=== PATIENT | female | born 1970 | race Caucasian/White ===

== ENCOUNTER 2017-01-28 15:20 | Emergency (ER) | payer OTHER, SELFPAY ==
[2017-01-28 15:29] VITALS: BP 123/93; PULSE 86; O2SAT 97
[2017-01-28] MEDS ORDERED: Rocephin 1000 MG INJ IM ONE (15:49)
--- NOTE | 2017-01-28 15:54 | ERPHSYRPT ---
- History of Present Illness Time Seen by Provider: 01/28/17 15:49 Source: patient, [employer] Patient Subjective Stated Complaint: stating she been having mouth pain since sunday on right side top of her mouth and in her jaw has not contacted doctor or dentist Triage Nursing Assessment: pt has no swelling noticable to the right side of face, cannot see any abscesses inside mouth Physician History: stating she been having mouth pain since sunday on right side top of her mouth and in her jaw. pain on right side of jaw and ear. Timing/Duration: gradual onset Severity: moderate ENT Location: ear (R) Prearrival Treatment: no prearrival treatment Associated Symptoms: ear pain (R), jaw pain (right), tooth pain, No fever, No sore throat Allergies/Adverse Reactions: aspirin Allergy (Verified 05/28/16 16:59) Rash pt states allergic to baby aspirin/orange coating Home Medications: Escitalopram Oxalate [Lexapro] 10 mg PO DAILY 02/29/16 [History] Levothyroxine Sodium 75 Mcg [Synthroid 75 Mcg] 75 mcg PO DAILY 02/29/16 [ History] Ranitidine HCl [Zantac 75] 75 mg PO BID 02/29/16 [History] Hx Tetanus, Diphtheria Vaccination/Date Given: Yes Hx Influenza Vaccination/Date Given: No Hx Pneumococcal Vaccination/Date Given: No Immunizations Up to Date: Yes - Review of Systems Constitutional: No Symptoms Eyes: No Symptoms Ears, Nose, & Throat: Ear Pain (right), Mouth Pain, Mouth Swelling, Loose Teeth , No Throat Swelling Respiratory: No Symptoms Cardiac: No Symptoms Abdominal/Gastrointestinal: No Symptoms - Past Medical History Pertinent Past Medical History: Yes Neurological History: Migraines ENT History: No Pertinent History Cardiac History: No Pertinent History Respiratory History: Asthma Endocrine Medical History: Hypothyroidism Musculoskeletal History: No Pertinent History GI Medical History: GERD, Gallbladder Disease History: No Pertinent History Psycho-Social History: Depression Female Reproductive Disorders: Abnormal Uterine Bleeding - Past Surgical History Past Surgical History: Yes Neuro Surgical History: No Pertinent History Cardiac: No Pertinent History Respiratory: No Pertinent History Gastrointestinal: Cholecystectomy Genitourinary: No Pertinent History Musculoskeletal: No Pertinent History Female Surgical History: Section, Hysterectomy, Tubal Ligation Other Surgical History: tonsilectomy - Social History Smoking Status: Never smoker Exposure to second hand smoke: Yes Drug Use: none Patient Lives Alone: No - Nursing Vital Signs Nursing Vital Signs: Initial Vital Signs Temperature 97.9 F Temperature Source Oral Pulse Rate 86 Respiratory Rate 20 Blood Pressure [Right Arm] 123/93 Pain Intensity 7 - Physical Exam General Appearance: no apparent distress Eye Exam: bilateral eye: normal inspection Ear Exam: bilateral ear: auricle normal, canal normal, TM normal Nasal Exam: normal inspection Throat Exam: dental tenderness, moist mucus membranes Neck Exam: normal inspection Cardiovascular/Respiratory Exam: chest non-tender SpO2: 97 Oxygen Delivery: Room Air - Course Nursing assessment & vital signs reviewed: Yes Ordered Tests: Medication Summary Generic Name Dose Route Start Last Admin Trade Name Freq PRN Reason Stop Dose Admin Ceftriaxone Sodium 1,000 mg 01/28/17 15:49 Rocephin 1000 Mg Inj IM 01/28/17 15:50 STAT ONE - Progress Progress: unchanged Counseled pt/family regarding: diagnosis, need for follow-up - Departure Time of Disposition: 15:53 Departure Disposition: Home Clinical Impression: Dental abscess Condition: Stable Critical Care Time: No Referrals: KRYSTIN SUTHERLAND [Primary Care Provider] - Instructions: Tooth Decay, Dental Pain Additional Instructions: Please follow the instructions given to you. Please take your medication as prescribed if given. If symptoms recur or get worse, come back to the emergency room if you cannot reach your primary care physician, or call your primary care physician for an appointment. Again if your symptoms get worse, come back to the emergency room. Thanks for visiting emergency room, and let us take care of you. Prescriptions: Cephalexin Mh 500 mg [Keflex 500 mg] 500 mg PO Q6H #40 capsule
[2017-01-28] MEDS ORDERED: XYLOCAINE 1% HCL 20 ML MDV ONE (15:56)
[2017-01-28] MEDS ORDERED: Rocephin 1000 MG INJ ONE (15:56)
== END 2017-01-28 16:21 | disposition home or self-care (01) ==
LOC: ED 15:20
DX: K04.7 Periapical abscess without sinus (principal); E03.9 Hypothyroidism, unspecified
CPT/HCPCS: 96372; 99283; J0696

== ENCOUNTER 2019-12-23 21:47 | Emergency (ER) | payer OTHER ==
--- NOTE | 2019-12-23 22:03 | ERPHSYRPT ---
- History of Present Illness Time Seen by Provider: 12/23/19 21:50 Source: patient Physician History: Patient is here with cough, shortness of breath, wheezing. Patient does not smoke. However, she has exposed to lots of secondhand smoke in her career and at home. Patient complains of 3 weeks of cough, wheezing, shortness of breath. Originally saw her PCP. Was given steroids and a Z-Ciro. She continues to have symptoms at this time. Location: chest Quality: cough, SOB Radiation: none Severity: moderate Duration: 3 weeks Timing: gradual Modifying factors/associated signs and symptoms: none tried Allergies/Adverse Reactions: aspirin Allergy (Intermediate, Verified 12/23/19 22:02) Rash pt states allergic to baby aspirin/orange coating Home Medications: Escitalopram Oxalate [Lexapro] 10 mg PO DAILY 02/29/16 [History] Levothyroxine Sodium 75 Mcg [Synthroid 75 Mcg] 75 mcg PO DAILY 02/29/16 [ History] Ranitidine HCl [Zantac 75] 75 mg PO BID 02/29/16 [History] Hx Tetanus, Diphtheria Vaccination/Date Given: Yes Hx Influenza Vaccination/Date Given: No Hx Pneumococcal Vaccination/Date Given: No - Review of Systems Constitutional: No Fever, No Chills Eyes: No Symptoms Ears, Nose, & Throat: No Symptoms Respiratory: Cough, Dyspnea on Exertion (SALAS), Wheezing, No Dyspnea Cardiac: No Chest Pain, No Edema, No Syncope Abdominal/Gastrointestinal: No Abdominal Pain, No Nausea, No Vomiting, No Diarrhea Genitourinary Symptoms: No Dysuria Musculoskeletal: No Back Pain, No Neck Pain Skin: No Rash Neurological: No Dizziness, No Focal Weakness, No Sensory Changes Psychological: No Symptoms Endocrine: No Symptoms All Other Systems: Reviewed and Negative - Past Medical History Pertinent Past Medical History: Yes Neurological History: Migraines ENT History: No Pertinent History Cardiac History: Hypertension Respiratory History: Asthma Endocrine Medical History: Hypothyroidism Musculoskeletal History: Arthritis GI Medical History: GERD, Gallbladder Disease History: No Pertinent History Psycho-Social History: Depression Female Reproductive Disorders: Abnormal Uterine Bleeding Other Medical History: zantac, welbutrin, lthyroxine,allergic to baby aspirin and cholesteral meds, allergic to cinnamon. - Past Surgical History Past Surgical History: Yes Neuro Surgical History: No Pertinent History Cardiac: No Pertinent History Respiratory: No Pertinent History Gastrointestinal: Cholecystectomy Genitourinary: No Pertinent History Musculoskeletal: No Pertinent History Female Surgical History: Section, Hysterectomy, Tubal Ligation Other Surgical History: tonsilectomy - Social History Smoking Status: Never smoker Exposure to second hand smoke: Yes Drug Use: none Patient Lives Alone: No - Female History Hx Now: No - Nursing Vital Signs Nursing Vital Signs: Initial Vital Signs Temperature 97.3 F 12/23/19 21:52 Pulse Rate 99 H 12/23/19 21:52 Respiratory Rate 20 12/23/19 21:52 Blood Pressure 158/100 12/23/19 21:52 O2 Sat by Pulse Oximetry 96 12/23/19 21:52 Pain Scale Pain Intensity 8 - Physical Exam General Appearance: no apparent distress, alert Eye Exam: PERRL/EOMI Neck Exam: normal inspection, supple Respiratory Exam: wheezing Cardiovascular/Chest Exam: normal heart sounds, regular rate/rhythm Abdominal/Gastrointestinal Exam: soft, No tenderness, No distention, No mass Extremity Exam: non-tender, normal range of motion, normal inspection, no calf tenderness, no pedal edema Neurologic Exam: alert, oriented x 3, cooperative, stenciling machine tender II-XII nml as tested, sensation nml, No motor deficits Skin Exam: normal color, warm, No dry SpO2 Interpretation: normal Ordered Tests: Active Orders 24 hr Category Date Time Status Oral Hygienist STAT Care 12/23/19 21:58 Active EKG-ER Only STAT Care 12/23/19 21:57 Active IV Insertion STAT Care 12/23/19 21:57 Active CHEST 2 VIEWS (PA AND LAT) Stat Exams 12/23/19 21:58 Ordered CBC W DIFF Stat Lab 12/23/19 22:13 Completed CMP Stat Lab 12/23/19 22:13 Completed NT PRO BNP Stat Lab 12/23/19 22:13 Completed TROPONIN Q3H Lab 12/23/19 22:13 Completed TROPONIN Q3H Lab 12/24/19 01:00 Ordered TROPONIN Q3H Lab 12/24/19 04:00 Ordered TROPONIN Q3H Lab 12/24/19 07:00 Ordered TROPONIN Q3H Lab 12/24/19 10:00 Ordered VENOUS BLOOD GAS Stat Lab 12/23/19 21:57 Ordered Peak Expiratory Flow Rate ONCE RT 12/23/19 22:29 Active Respiratory Therapy Assessment DAILY RT 12/23/19 22:29 Active Medication Summary Discontinued Medications Generic Name Dose Route Start Last Admin Trade Name Silva PRN Reason Stop Dose Admin Albuterol/Ipratropium 3 ml 12/23/19 21:57 12/23/19 22:30 Duoneb 0.5-3 Mg/3 Ml Neb IH 12/23/19 21:58 3 ml STAT ONE Administration Albuterol/Ipratropium Confirm 12/23/19 22:26 Duoneb 0.5-3 Mg/3 Ml Neb Administered 12/23/19 22:27 Dose 3 ml IH .STK-MED ONE Albuterol/Ipratropium Confirm 12/23/19 22:44 Duoneb 0.5-3 Mg/3 Ml Neb Administered 12/23/19 22:45 Dose 3 ml IH .STK-MED ONE Albuterol/Ipratropium 3 ml 12/23/19 22:45 12/23/19 22:48 Duoneb 0.5-3 Mg/3 Ml Neb IH 12/23/19 22:46 3 ml STAT ONE Administration Sodium Chloride 1,000 mls @ 999 mls/hr 12/23/19 21:57 12/23/19 22:16 Sodium Chloride 0.9% 1000 Ml IV 12/23/19 22:57 999 mls/hr .Q1H1M STA Administration Sodium Chloride Confirm 12/23/19 22:13 Sodium Chloride 0.9% 1000 Ml Administered 12/23/19 22:14 Dose 1,000 mls @ ud .ROUTE .STK-MED ONE Methylprednisolone Sodium Succinate 125 mg 12/23/19 21:57 12/23/19 22:16 Solu-Medrol 125 Mg IV 12/23/19 21:58 125 mg STAT ONE Administration Methylprednisolone Sodium Succinate Confirm 12/23/19 22:13 Solu-Medrol 125 Mg Administered 12/23/19 22:14 Dose 125 mg .ROUTE .STK-MED ONE Ondansetron HCl 4 mg 12/23/19 21:57 12/23/19 22:16 Zofran 4 Mg/2 Ml Vial IV 12/23/19 21:58 4 mg STAT ONE Administration Ondansetron HCl Confirm 12/23/19 22:13 Zofran 4 Mg/2 Ml Vial Administered 12/23/19 22:14 Dose 4 mg .ROUTE .STK-MED ONE Lab/Rad Data: Laboratory Result Diagrams 12/23/19 22:13 12/23/19 22:13 Laboratory Results 12/23/19 12/23/19 12/23/19 Range/Units 22:13 22:13 22:13 WBC (4.0-10.5) K/mm3 RBC (4.1-5.4) M/mm3 Hgb (12.0-16.0) gm/dl Hct (35-47) % MCV (78-100) fl MCH (26-32) pg MCHC (32-36) g/dl RDW (11.5-14.0) % Plt Count (150-450) K/mm3 MPV (7.5-11.0) fl Gran % (36.0-66.0) % Eos # (Auto) (0-0.5) Absolute Lymphs (auto) (1.0-4.6) Absolute Monos (auto) (0.0-1.3) Lymphocytes % (24.0-44.0) % Monocytes % (0.0-12.0) % Eosinophils % (0.00-5.0) % Basophils % (0.0-0.4) % Absolute Granulocytes (1.4-6.9) Basophils # (0-0.4) Sodium 143 (137-145) mmol/L Potassium 3.6 (3.5-5.1) mmol/L Chloride 111 H (98-107) mmol/L Carbon Dioxide 24 (22-30) mmol/L Anion Gap 11.5 (5-15) MEQ/L BUN 15 (7-17) mg/dL Creatinine 0.89 (0.52-1.04) mg/dL Estimated GFR > 60.0 ML/MIN Glucose 114 H (74-106) mg/dL Calcium 9.3 (8.4-10.2) mg/dL Total Bilirubin 0.40 (0.2-1.3) mg/dL AST 24 (14-36) U/L ALT 23 (0-35) U/L Alkaline Phosphatase 92 (38-126) U/L Troponin I < 0.012 (0.000-0.034) ng/mL NT-Pro-B Natriuret Pep 66.5 (0-450) pg/mL Serum Total Protein 7.2 (6.3-8.2) g/dL Albumin 4.1 (3.5-5.0) g/dL Influenza Type A Ag NEGATIVE (NEGATIVE) Influenza Type B Ag NEGATIVE (NEGATIVE) RSV (PCR) NEGATIVE (Negative) 12/23/19 Range/Units 22:13 WBC 11.8 H (4.0-10.5) K/mm3 RBC 4.62 (4.1-5.4) M/mm3 Hgb 14.0 (12.0-16.0) gm/dl Hct 42.2 (35-47) % MCV 91.3 (78-100) fl MCH 30.3 (26-32) pg MCHC 33.2 (32-36) g/dl RDW 13.9 (11.5-14.0) % Plt Count 264 (150-450) K/mm3 MPV 9.9 (7.5-11.0) fl Gran % 64.5 (36.0-66.0) % Eos # (Auto) 0.78 H (0-0.5) Absolute Lymphs (auto) 2.47 (1.0-4.6) Absolute Monos (auto) 0.86 (0.0-1.3) Lymphocytes % 20.9 L (24.0-44.0) % Monocytes % 7.3 (0.0-12.0) % Eosinophils % 6.6 H (0.00-5.0) % Basophils % 0.7 (0.0-0.4) % Absolute Granulocytes 7.60 H (1.4-6.9) Basophils # 0.08 (0-0.4) Sodium (137-145) mmol/L Potassium (3.5-5.1) mmol/L Chloride (98-107) mmol/L Carbon Dioxide (22-30) mmol/L Anion Gap (5-15) MEQ/L BUN (7-17) mg/dL Creatinine (0.52-1.04) mg/dL Estimated GFR ML/MIN Glucose (74-106) mg/dL Calcium (8.4-10.2) mg/dL Total Bilirubin (0.2-1.3) mg/dL AST (14-36) U/L ALT (0-35) U/L Alkaline Phosphatase (38-126) U/L Troponin I (0.000-0.034) ng/mL NT-Pro-B Natriuret Pep (0-450) pg/mL Serum Total Protein (6.3-8.2) g/dL Albumin (3.5-5.0) g/dL Influenza Type A Ag (NEGATIVE) Influenza Type B Ag (NEGATIVE) RSV (PCR) (Negative) - Progress Progress: improved Air Movement: good Progress Note: 12/23/19 22:02 - We'll obtain basic labs, fluids, EKG, troponin, chest x-ray - I feel comfortable with one time negative troponin given symptoms have improved and started greater then 6 hours ago. - breathing treatment, fluids, steroids - EKG shows no ST changes - my read. See full read below. - O2 saturations consistently greater than 95%. - CXR shows no pneumonia, pneumothorax - my read - no other obvious lab abnormalities 12/23/19 23:16 Patient feeling improved overall. Given total of 3 breathing treatments. Most likely a COPD exacerbation. Will discharge patient home at this point in time. We will have patient follow-up with her PCP, keep her pulmonology appointment. Should anything change, patient should return here immediately for reexam. Patient states understanding. Plan of care was discussed with patient and all questions answered. The patient is agreeable to be discharged home and both verbal and printed discharge instructions were provided.The patient agreed to seek outpatient follow up as discussed. The patient was given strict instructions to return to the emergency department for worsening symptoms or any other emergent concerns. The patient verbalized understanding. Counseled pt/family regarding: lab results, diagnosis, need for follow-up - Departure Departure Disposition: Home Clinical Impression: COPD exacerbation Condition: Stable Critical Care Time: No Referrals: GISELLE ALMARAZ MD [Primary Care Provider] - Instructions: Chronic Obstructive Pulmonary Disease Prescriptions: Prednisone 10 mg [Deltasone 10 mg] 40 mg PO DAILY 5 Days #30 tablet
[2019-12-23] MEDS ORDERED: Sodium Chloride 0.9% 1000 ML 1,000 ML ONE (22:13)
[2019-12-23] MEDS ORDERED: Zofran 4 MG/2 ML VIAL ONE (22:13)
[2019-12-23] MEDS ORDERED: solu-MEDROL 125 MG ONE (22:13)
[2019-12-23 22:16] LABS: BASOPHIL % 0.7 % (0.0-0.4); Basophil (Absolute #) 0.08 (0-0.4); Eosinophil % 6.6 % (0.00-5.0); Eosinophil (Absolute #) 0.78 (0-0.5); Hematocrit 42.2 % (35-47); Lymphocyte (Absolute #) 2.47 (1.0-4.6); Lymphocytes % 20.9 % (24.0-44.0); Mean Cell Volume 91.3 fl (78-100); Mean Corpuscular Hemoglobin 30.3 pg (26-32); Mean Corpuscular Hgb Concent. 33.2 g/dl (32-36); Mean Platelet Volume 9.9 fl (7.5-11.0); Monocyte (Absolute #) 0.86 (0.0-1.3); Monocytes % 7.3 % (0.0-12.0); Neutrophil % 64.5 % (36.0-66.0); Platelet Count 264 K/mm3 (150-450); Red Blood Count 4.62 M/mm3 (4.1-5.4); Red Cell Distribution Width 13.9 % (11.5-14.0); White Blood Count 11.8 K/mm3 (4.0-10.5)
[2019-12-23] MEDS: Zofran 4 MG/2 ML VIAL IV ONE (22:16)
[2019-12-23] MEDS: Sodium Chloride 0.9% 1000 ML 1,000 ML IV STA (22:16)
[2019-12-23] MEDS: solu-MEDROL 125 MG IV ONE (22:16)
[2019-12-23] MEDS ORDERED: DUONEB 0.5-3 MG/3 ml Neb IH ONE ×2 (22:26→22:44)
[2019-12-23] MEDS: DUONEB 0.5-3 MG/3 ml Neb IH ONE ×2 (22:30→22:48)
[2019-12-23 22:36] LABS: ALBUMIN 4.1 g/dL (3.5-5.0); ALKALINE PHOSPHATASE 92 U/L (38-126); ANION GAP 11.5 MEQ/L (5-15); BLOOD UREA NITROGEN 15 mg/dL (7-17); CHLORIDE 111 mmol/L (98-107); Calcium 9.3 mg/dL (8.4-10.2); Carbon Dioxide 24 mmol/L (22-30); Creatinine 1 0.89 mg/dL (0.52-1.04); Glucose 114 mg/dL (74-106); NT PRO BNP 66.5 pg/mL (0-450); Potassium 3.6 mmol/L (3.5-5.1); SGOT/AST 24 U/L (14-36); SGPT/ALT 23 U/L (0-35); SODIUM 143 mmol/L (137-145); Total Protein 7.2 g/dL (6.3-8.2)
[2019-12-23 22:49] LABS: INFLUENZA A NEGATIVE (NEGATIVE); INFLUENZA B NEGATIVE (NEGATIVE); RESPIRATORY SYNCTIAL VIRUS NEGATIVE (Negative)
[2019-12-23 23:37] VITALS: BP 128/72
[2019-12-23 23:54] VITALS: PULSE 89; O2SAT 98
--- NOTE | 2019-12-24 08:46 | XRAY ---
Indication: Cough. Comparison: None PA/lateral chest demonstrates normal heart and lungs with a few incidental right lung calcified granulomas. Bony thorax intact.
== END 2019-12-23 23:54 | disposition home or self-care (01) ==
LOC: ED 21:47
DX: J44.1 Chronic obstructive pulmonary disease with (acute) exacerbation (principal)
CPT/HCPCS: 36000; 36415; 71046; 80053; 83880; 84484; 85025; 87631; 93005; 93041; 94150; 94640; 96360; 96374; 96375; 99284; J2405; J2930; A9270-GY

== ENCOUNTER 2021-05-02 09:37 | Emergency (ER) | payer OTHER ==
[2021-05-02] MEDS ORDERED: Sodium Chloride 0.9% 1000 ML 1,000 ML IV STA (10:05)
[2021-05-02] MEDS ORDERED: Zofran 4 MG/2 ML VIAL IV ONE (10:05)
[2021-05-02] MEDS ORDERED: MORPHINE SULFATE 2 MG INJ IV ONE (10:05)
[2021-05-02] MEDS ORDERED: Zofran 4 MG/2 ML VIAL ONE (10:49)
--- NOTE | 2021-05-02 10:49 | ERPHSYRPT ---
- History of Present Illness Time Seen by Provider: 05/02/21 09:55 Historian: patient Exam Limitations: no limitations Patient Subjective Stated Complaint: pt reports vomiting since sunday with no relief, reports abdominal pain only with eating/drinking Triage Nursing Assessment: pt is aox3, retching upon arrival, pupils perrl, afebrile, resps easy and non labored, radial pulses strong and equal, cap refill < 3 seconds, abd soft, tender diffusely, bowel sounds present normoactive x 4, pt skin pale warm moist. Physician History: Patient is a 50-year-old female presents to our ED with complaints of vomiting since Sunday. Patient states she is unable to tolerate solid foods and liquids. Patient has been vomiting intermittently. Patient describes an ache that is primarily periumbilical. No diarrhea. No trauma no fever. Patient denies a history of the same. Symptoms are moderate in intensity. Pain is mostly postprandial. No associated chest pain. No numbness tingling or weakness. Patient voices no other complaints or concerns at this time. Timing/Duration: day(s) (3 days) Activities at Onset: other (18) Quality: aching Abdominal Pain Onset Location: periumbilical Pain Radiation: no radiation Severity of Pain-Max: moderate Severity of Pain-Current: mild Modifying Factors: Improves With: other (Eating) Associated Symptoms: No chest pain, No diarrhea, No fever/chills, No headache, No neck pain, No shortness of breath, No syncope Previous symptoms: no prior history Allergies/Adverse Reactions: aspirin Allergy (Intermediate, Verified 05/02/21 09:59) Rash pt states allergic to baby aspirin/orange coating Home Medications: Escitalopram Oxalate [Lexapro] 10 mg PO DAILY 02/29/16 [History] Levothyroxine Sodium 75 Mcg [Synthroid 75 Mcg] 75 mcg PO DAILY 02/29/16 [History] raNITIdine HCL [Zantac 75] 75 mg PO BID 02/29/16 [History] Hx Tetanus, Diphtheria Vaccination/Date Given: Yes Hx Influenza Vaccination/Date Given: Yes Hx Pneumococcal Vaccination/Date Given: No Immunizations Up to Date: Yes Travel Risk - International Travel Have you traveled outside of the country in past 3 weeks: No - Coronavirus Screening Are you exhibiting any of the following symptoms?: No Close contact with a COVID-19 positive Pt in past 14-21 Days: No - Vaccine Status Have you recieved a Covid-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: Yes 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[employer] - Vaccination Dates Date of 2cond Vaccination (if applicable): 04/13/21 - Review of Systems Constitutional: No Symptoms, No Fever, No Chills Eyes: No Symptoms Ears, Nose, & Throat: No Symptoms Respiratory: No Symptoms, No Cough, No Dyspnea Cardiac: No Symptoms, No Chest Pain, No Edema, No Syncope Abdominal/Gastrointestinal: No Symptoms, No Abdominal Pain, No Nausea, No Vomiting, No Diarrhea Genitourinary Symptoms: No Symptoms, No Dysuria Musculoskeletal: No Symptoms, No Back Pain, No Neck Pain Skin: No Symptoms, No Rash Neurological: No Symptoms, No Dizziness, No Focal Weakness, No Sensory Changes Psychological: No Symptoms Endocrine: No Symptoms Hematologic/Lymphatic: No Symptoms Immunological/Allergic: No Symptoms All Other Systems: Reviewed and Negative - Past Medical History Pertinent Past Medical History: Yes Neurological History: Migraines ENT History: No Pertinent History Cardiac History: Hypertension Respiratory History: Asthma Endocrine Medical History: Hypothyroidism Musculoskeletal History: Arthritis GI Medical History: GERD, Gallbladder Disease History: No Pertinent History Psycho-Social History: Depression Female Reproductive Disorders: Abnormal Uterine Bleeding Other Medical History: zantac, welbutrin, lthyroxine,allergic to baby aspirin and cholesteral meds, allergic to cinnamon. - Past Surgical History Past Surgical History: Yes Neuro Surgical History: No Pertinent History Cardiac: No Pertinent History Respiratory: No Pertinent History Gastrointestinal: Cholecystectomy Genitourinary: No Pertinent History Musculoskeletal: No Pertinent History Female Surgical History: Section, Hysterectomy, Tubal Ligation Other Surgical History: tonsilectomy - Social History Smoking Status: Never smoker Exposure to second hand smoke: Yes Drug Use: none Patient Lives Alone: No - Female History Hx Last Menstrual Period: hyst Hx Now: No - Nursing Vital Signs Nursing Vital Signs: Initial Vital Signs Pulse Rate 83 05/02/21 09:50 Respiratory Rate 20 05/02/21 09:50 Blood Pressure 170/84 05/02/21 09:50 O2 Sat by Pulse Oximetry 97 05/02/21 09:50 Pain Scale Pain Intensity 6 - Physical Exam General Appearance: no apparent distress, alert Eye Exam: PERRL/EOMI, eyes nml inspection Ears, Nose, Throat Exam: normal ENT inspection, pharynx normal, moist mucous membranes Neck Exam: normal inspection, non-tender, supple, full range of motion Respiratory Exam: normal breath sounds, lungs clear, No respiratory distress Cardiovascular Exam: regular rate/rhythm, normal heart sounds Gastrointestinal/Abdomen Exam: soft, No tenderness, No mass Back Exam: normal inspection, normal range of motion, No CVA tenderness, No v ertebral tenderness Extremity Exam: normal inspection, normal range of motion, pelvis stable Neurologic Exam: alert, oriented x 3, cooperative, normal mood/affect, nml cerebellar function, sensation nml, No motor deficits Skin Exam: normal color, warm, dry SpO2 Interpretation: normal SpO2: 97 O2 Delivery: Room Air Ordered Tests: Active Orders 24 hr Category Date Time Status IV Insertion STAT Care 05/02/21 10:05 Active ABDOMEN AND PELVIS W CONTRAST [CT] Routine Exams 05/02/21 11:54 Completed CBC W DIFF Stat Lab 05/02/21 11:25 Completed CMP Stat Lab 05/02/21 11:25 Completed LIPASE Stat Lab 05/02/21 11:25 Completed TROPONIN Q3H Lab 05/02/21 11:25 Completed TROPONIN Q3H Lab 05/02/21 13:15 Ordered TROPONIN Q3H Lab 05/02/21 16:15 Ordered TROPONIN Q3H Lab 05/02/21 19:15 Ordered TROPONIN Q3H Lab 05/02/21 22:15 Ordered UA W/RFX UR CULTURE Stat Lab 05/02/21 10:06 Ordered Medication Summary Discontinued Medications Generic Name Dose Route Start Last Admin Trade Name Freq PRN Reason Stop Dose Admin Sodium Chloride 1,000 mls @ 999 mls/hr 05/02/21 10:05 05/02/21 12:28 Sodium Chloride 0.9% 1000 Ml IV 05/02/21 11:05 Infused .Q1H1M STA Infusion Sodium Chloride Confirm 05/02/21 10:50 Sodium Chloride 0.9% 1000 Ml Administered 05/02/21 10:51 Dose 1,000 mls @ ud .ROUTE .STK-MED ONE Morphine Sulfate 2 mg 05/02/21 10:05 05/02/21 10:53 Morphine Sulfate 2 Mg Inj IV 05/02/21 10:06 2 mg STAT ONE Administration Morphine Sulfate Confirm 05/02/21 10:50 Morphine Sulfate 2 Mg Inj Administered 05/02/21 10:51 Dose 2 mg .ROUTE .STK-MED ONE Ondansetron HCl 4 mg 05/02/21 10:05 05/02/21 10:52 Zofran 4 Mg/2 Ml Vial IV 05/02/21 10:06 4 mg STAT ONE Administration Ondansetron HCl Confirm 05/02/21 10:49 Zofran 4 Mg/2 Ml Vial Administered 05/02/21 10:50 Dose 4 mg .ROUTE .STK-MED ONE Lab/Rad Data: Laboratory Result Diagrams 05/02/21 11:25 05/02/21 11:25 Laboratory Results 05/02/21 05/02/21 05/02/21 Range/Units 11:25 11:25 11:25 WBC 7.2 (4.0-10.5) K/mm3 RBC 5.12 (4.1-5.4) M/mm3 Hgb 15.2 (12.0-16.0) gm/dl Hct 46.3 (35-47) % MCV 90.4 (78-100) fl MCH 29.7 (26-32) pg MCHC 32.8 (32-36) g/dl RDW 13.7 (11.5-14.0) % Plt Count 230 (150-450) K/mm3 MPV 9.3 (7.5-11.0) fl Gran % 71.6 H (36.0-66.0) % Eos # (Auto) 0.11 (0-0.5) Absolute Lymphs (auto) 1.17 (1.0-4.6) Absolute Monos (auto) 0.73 (0.0-1.3) Lymphocytes % 16.3 L (24.0-44.0) % Monocytes % 10.2 (0.0-12.0) % Eosinophils % 1.5 (0.00-5.0) % Basophils % 0.4 (0.0-0.4) % Absolute Granulocytes 5.12 (1.4-6.9) Basophils # 0.03 (0-0.4) Sodium 142 (137-145) mmol/L Potassium 4.1 (3.5-5.1) mmol/L Chloride 107 (98-107) mmol/L Carbon Dioxide 26 (22-30) mmol/L Anion Gap 13.9 (5-15) MEQ/L BUN 12 (7-17) mg/dL Creatinine 1.16 H (0.52-1.04) mg/dL Estimated GFR 53.0 ML/MIN Glucose 109 H (74-106) mg/dL Calcium 9.5 (8.4-10.2) mg/dL Total Bilirubin 0.50 (0.2-1.3) mg/dL AST 35 (14-36) U/L ALT 44 H (0-35) U/L Alkaline Phosphatase 97 (38-126) U/L Troponin I < 0.012 (0.000-0.034) ng/mL Serum Total Protein 7.5 (6.3-8.2) g/dL Albumin 4.5 (3.5-5.0) g/dL Lipase 58 (23-300) U/L - Progress Progress: improved Progress Note: Since. She feels well. Nausea vomiting resolved. Patient tolerating p.o. well. CT abdomen pelvis reveals no acute intra-abdominal pathology. Laboratory work-up essentially nonremarkable as well. Significant other bedside. Plan of care discussed with patient. She agrees to follow-up with her primary care doctor within 48 hours for reevaluation. Patient advised to take Zofran only if she absolutely needs it. If she takes the Zofran she should hold the Lexapro as they prolonged QT in combinations. . 05/02/21 13:45 Counseled pt/family regarding: lab results, diagnosis, need for follow-up, rad results - Departure Departure Disposition: Home Clinical Impression: Lung granuloma, Hepatic steatosis, Diverticulosis, Nausea & vomiting Condition: Stable Critical Care Time: No Referrals: GISELLE ALMARAZ MD [Primary Care Provider] - Additional Instructions: Discharge/Care Plan SHAUN OSCAR was seen on 05/02/21 in the Emergency Room. The patient was counseled regarding Diagnosis,Lab results, Imaging studies, need for follow up and when to return to the Emergency Room. Prescriptions given: Discharge Note I have spoken with the patient and/or caregivers. I have explained the patient's condition, diagnosis and treatment plan based on the information available to me at this time. I have answered the patient's and/or caregiver's questions and addressed any concerns. The patient and/or caregivers have as good understanding of the patient's diagnosis, condition and treatment plan as can be expected at this point. The vital signs have been stable. The patient's condition is stable and appropriate for discharge from the emergency department. The patient will pursue further outpatient evaluation with the primary care physician or other designated or consulting physician as outlined in the discharge instructions. The patient and/or caregivers are agreeable to this plan of care and follow-up instructions have been explained in detail. The patient and/or caregivers have received these instruction. The patient/and or caregivers are aware that any significant change in condition or worsening of symptoms should prompt an immediate return to this or the closest emergency department or call 911. Prescriptions: Ondansetron ODT 4 MG [Zofran Odt 4 mg] 4 mg PO Q6H PRN PRN 2 Days #8 tab.rapdis PRN Reason: Nausea
[2021-05-02] MEDS ORDERED: Sodium Chloride 0.9% 1000 ML 1,000 ML ONE (10:50)
[2021-05-02] MEDS ORDERED: MORPHINE SULFATE 2 MG INJ ONE (10:50)
[2021-05-02 11:33] LABS: Absolute Neutrophil Ct (ANC) 5.12 (1.4-6.9); BASOPHIL % 0.4 % (0.0-0.4); Basophil (Absolute #) 0.03 (0-0.4); Eosinophil % 1.5 % (0.00-5.0); Eosinophil (Absolute #) 0.11 (0-0.5); Hematocrit 46.3 % (35-47); Hemoglobin 15.2 gm/dl (12.0-16.0); Lymphocyte (Absolute #) 1.17 (1.0-4.6); Lymphocytes % 16.3 % (24.0-44.0); Mean Cell Volume 90.4 fl (78-100); Mean Corpuscular Hemoglobin 29.7 pg (26-32); Mean Corpuscular Hgb Concent. 32.8 g/dl (32-36); Mean Platelet Volume 9.3 fl (7.5-11.0); Monocyte (Absolute #) 0.73 (0.0-1.3); Monocytes % 10.2 % (0.0-12.0); Neutrophil % 71.6 % (36.0-66.0); Platelet Count 230 K/mm3 (150-450); Red Blood Count 5.12 M/mm3 (4.1-5.4); Red Cell Distribution Width 13.7 % (11.5-14.0); White Blood Count 7.2 K/mm3 (4.0-10.5)
[2021-05-02 11:43] LABS: ALBUMIN 4.5 g/dL (3.5-5.0); ANION GAP 13.9 MEQ/L (5-15); BILIRUBIN,TOTAL 0.5 mg/dL (0.2-1.3); Calcium 9.5 mg/dL (8.4-10.2); Creatinine 1 1.16 mg/dL (0.52-1.04); Potassium 4.1 mmol/L (3.5-5.1); Total Protein 7.5 g/dL (6.3-8.2)
--- NOTE | 2021-05-02 13:28 | XRAY ---
Exam: CT of the abdomen and pelvis with IV contrast from 05/02/2021. CTDI: 21.43 mGy Comparison: CT of the abdomen and pelvis without IV contrast from 08/01/2016. Indication: 50-year-old female with abdominal pain. The patient gives a history of prior cholecystectomy, hysterectomy, and 2 prior sections. Technique: Post-IV contrast axial images were obtained through the abdomen and pelvis during automated injection of 80 cc of nonionic Isovue 370 IV contrast material. Findings: A prominent calcified granuloma is seen within the right middle lobe representing no change. The remainder of the visualized lung bases appears clear. There is some probable herniated intraperitoneal fat along the left margin of the distal thoracic esophagus. In retrospect, this is unchanged. Occasional motion artifact is seen. The liver appears of normal size and reveals no mass or biliary duct distention. I believe there is mild hepatic steatosis. Surgical clips consistent with prior cholecystectomy are seen within the right upper quadrant. The spleen appears within normal size and reveals no mass. Scattered calcified granulomas are seen within the spleen representing no change. The pancreas appears unremarkable without mass or inflammatory changes. The adrenal glands appear grossly unremarkable. The kidneys appear of normal size and shape. Both kidneys function on delayed images revealing no mass or hydronephrosis. No definite renal calculi are seen. A small amount of bilateral renal pelvic fat is seen, right greater than left. The ureters are not dilated and reveal no definite ureterolith. The abdominal aorta reveals no evidence of aneurysm or abnormal retroperitoneal lymphadenopathy. No ventral hernia or free intraperitoneal air is seen. Minimal protrusion of intraperitoneal fat into the subcutaneous fat is seen at the level of the umbilicus on midline sagittal image #116. A retrocecal appendix is seen which appears normal. There is no evidence of appendicitis. The colon is nonobstructed. Mild diverticulosis is seen within the descending colon and sigmoid colon. There is no evidence of acute diverticulitis. The uterus is surgically absent. I detect neither ovary suggesting there has been bilateral oophorectomy as well. The urinary bladder is partially distended and reveals no abnormal findings. No abnormal pelvic lymphadenopathy or free intraperitoneal fluid is seen. The skeleton reveals mild vertebral endplate spurring throughout the visualized thoracolumbar spine. No fracture or aggressive bone lesion is seen. Impression: 1. There is some mild motion artifact on several images through the upper abdomen which slightly limits the study. 2. Status post cholecystectomy and apparent total hysterectomy. 3. Moderate diverticulosis within the descending colon and sigmoid colon without evidence of acute diverticulitis. 4. Mild hepatic steatosis. 5. No other acute process is seen within the abdomen or pelvis.
[2021-05-02 14:12] LABS: Appearance SLIGHTLY CLOUDY (CLEAR); Bacteria RARE /HPF (NEGATIVE); Bilirubin NEGATIVE (NEGATIVE); Blood SMALL Ery/ul (0-5); Epithelial Cells FEW /HPF (FEW); Glucose NEGATIVE (NEGATIVE); Ketones MODERATE (NEGATIVE); Leukocyte Esterase NEGATIVE (NEGATIVE); Mucus SLIGHT /HPF (NEGATIVE); Nitrite NEGATIVE (NEGATIVE); Protein,Urine Dip NEGATIVE (Negative); Specific Gravity >1.060 (1.005-1.025); Urobilinogen NEGATIVE mg/dL (0-1)
[2021-05-02 14:13] VITALS: BP 160/90; PULSE 68; O2SAT 99
== END 2021-05-02 14:13 | disposition home or self-care (01) ==
LOC: ED 09:37
DX: R11.2 Nausea with vomiting, unspecified (principal); R10.33 Periumbilical pain; J84.10 Pulmonary fibrosis, unspecified; K57.90 Diverticulosis of intestine, part unspecified, without perforation or abscess without bleeding; K76.0 Fatty (change of) liver, not elsewhere classified; Z79.899 Other long term (current) drug therapy
CPT/HCPCS: 36000; 36415; 74177; 80053; 81001; 83690; 84484; 85025; 96360; 96374; 96375; 99284; J2270; J2405

== ENCOUNTER 2021-05-04 10:27 | Emergency (ER) | payer OTHER ==
[2021-05-04] MEDS ORDERED: PROTONIX 40 MG IV IV ONE ×2 (11:13→13:03)
[2021-05-04] MEDS ORDERED: Zofran 4 MG/2 ML VIAL IV ONE (11:13)
[2021-05-04] MEDS ORDERED: TORAdol 30 mg Injection IV ONE (11:13)
[2021-05-04] MEDS ORDERED: Sodium Chloride 0.9% 1000 ML 1,000 ML IV STA (11:13)
[2021-05-04] MEDS ORDERED: Reglan 10 MG/2 ML IV ONE (11:15)
[2021-05-04 11:38] LABS: Appearance SLIGHTLY CLOUDY (CLEAR); Bacteria RARE /HPF (NEGATIVE); Bilirubin NEGATIVE (NEGATIVE); Blood SMALL Ery/ul (0-5); Epithelial Cells RARE /HPF (FEW); Glucose NEGATIVE (NEGATIVE); Ketones MODERATE (NEGATIVE); Leukocyte Esterase NEGATIVE (NEGATIVE); Mucus SLIGHT /HPF (NEGATIVE); Nitrite NEGATIVE (NEGATIVE); Protein,Urine Dip 30 (Negative); Specific Gravity 1.021 (1.005-1.025); Urobilinogen NEGATIVE mg/dL (0-1)
--- NOTE | 2021-05-04 12:12 | ERPHSYRPT ---
- History of Present Illness Time Seen by Provider: 05/04/21 11:05 Historian: patient Patient Subjective Stated Complaint: Pain to left side of abdomen. Denies pain anywhere else at this time. Describes pain as "aching." C/O loose stools since Sunday. Hasn't been able to eat since having jello yesterday. Has some nausea but denies vomiting. Also c/o nasal congestion but denies any difficulties b reathing. Triage Nursing Assessment: No SOB noted; breaths easy, regular, non-labored. Pain to abdomen does not change or increase with abdominal palpation. No nausea at this time; took zofran at 0830 today. No vomiting. States still has diarrhea. Physician History: 50 years old female was evaluated for abdominal pain 2 days ago in the ER with a negative CT abdomen pelvis presented back with pain left upper abdomen/flank area off and on for the last 5 to 6 days without any significant aggravating or relieving factors. Patient report associated nausea but has been taking Zofran [id number] to prevent from getting vomiting. Patient feels weak fatigued tired and dehydrated Timing/Duration: day(s) (5), intermittent, gradual onset Activities at Onset: activity, rest Quality: aching Abdominal Pain Onset Location: LUQ, periumbilical Pain Radiation: no radiation Severity of Pain-Max: moderate Severity of Pain-Current: moderate Modifying Factors: Improves With: nothing Associated Symptoms: fatigue, loss of appetite, nausea, weakness, No fever/chills, No vomiting Previous symptoms: no prior history Allergies/Adverse Reactions: aspirin Allergy (Intermediate, Verified 05/04/21 10:55) Rash pt states allergic to baby aspirin/orange coating Home Medications: Escitalopram Oxalate [Lexapro] 10 mg PO DAILY 02/29/16 [History] Levothyroxine Sodium 75 Mcg [Synthroid 75 Mcg] 75 mcg PO DAILY 02/29/16 [History] raNITIdine HCL [Zantac 75] 75 mg PO BID 02/29/16 [History] Azithromycin 250 mg PO ZPACK 05/04/21 [History] Hx Tetanus, Diphtheria Vaccination/Date Given: Yes Hx Influenza Vaccination/Date Given: Yes Hx Pneumococcal Vaccination/Date Given: No Travel Risk - International Travel Have you traveled outside of the country in past 3 weeks: No - Coronavirus Screening Are you exhibiting any of the following symptoms?: No Close contact with a COVID-19 positive Pt in past 14-21 Days: No - Vaccine Status Have you recieved a Covid-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: Yes [employer]: [employer] - Vaccination Dates Date of 2cond Vaccination (if applicable): 04/13/21 - Past Medical History Pertinent Past Medical History: Yes Neurological History: Migraines ENT History: No Pertinent History Cardiac History: Hypertension Respiratory History: Asthma Endocrine Medical History: Hypothyroidism Musculoskeletal History: Arthritis GI Medical History: GERD, Gallbladder Disease History: No Pertinent History Psycho-Social History: Depression Female Reproductive Disorders: Abnormal Uterine Bleeding Other Medical History: zantac, welbutrin, lthyroxine,allergic to baby aspirin and cholesteral meds, allergic to cinnamon. - Past Surgical History Past Surgical History: Yes Neuro Surgical History: No Pertinent History Cardiac: No Pertinent History Respiratory: No Pertinent History Gastrointestinal: Cholecystectomy Genitourinary: No Pertinent History Musculoskeletal: No Pertinent History Female Surgical History: Section, Hysterectomy, Tubal Ligation Other Surgical History: tonsilectomy - Social History Smoking Status: Never smoker Exposure to second hand smoke: Yes Drug Use: none Patient Lives Alone: No - Female History Hx Now: No - Nursing Vital Signs Nursing Vital Signs: Initial Vital Signs Temperature 97.6 F 05/04/21 10:33 Pulse Rate 76 05/04/21 10:33 Respiratory Rate 19 05/04/21 10:33 Blood Pressure 173/94 05/04/21 10:33 O2 Sat by Pulse Oximetry 98 05/04/21 10:33 Pain Scale Pain Intensity 2 - Physical Exam General Appearance: no apparent distress, alert Eye Exam: PERRL/EOMI, eyes nml inspection Ears, Nose, Throat Exam: normal ENT inspection, pharynx normal Neck Exam: normal inspection, supple, full range of motion Respiratory Exam: normal breath sounds, lungs clear Cardiovascular Exam: regular rate/rhythm, normal heart sounds Gastrointestinal/Abdomen Exam: soft, normal bowel sounds, tenderness (Left upper abdomen/flank without guarding or rebound tenderness) Back Exam: normal inspection, normal range of motion Extremity Exam: normal inspection, normal range of motion Neurologic Exam: alert, oriented x 3, cooperative Skin Exam: normal color SpO2 Interpretation: normal SpO2: 98 O2 Delivery: Room Air Ordered Tests: Medication Summary Discontinued Medications Generic Name Dose Route Start Last Admin Trade Name Freq PRN Reason Stop Dose Admin Sodium Chloride 1,000 mls @ 999 mls/hr 05/04/21 11:13 05/04/21 15:05 Sodium Chloride 0.9% 1000 Ml IV 05/04/21 12:13 Infused .Q1H1M STA Infusion Sodium Chloride Confirm 05/04/21 13:03 Sodium Chloride 0.9% 1000 Ml Administered 05/04/21 13:04 Dose 1,000 mls @ ud .ROUTE .STK-MED ONE Ketorolac Tromethamine 30 mg 05/04/21 11:13 05/04/21 13:22 Toradol 30 Mg Injection IV 05/04/21 11:14 30 mg STAT ONE Administration Ketorolac Tromethamine Confirm 05/04/21 13:03 Toradol 30 Mg Injection Administered 05/04/21 13:04 Dose 30 mg .ROUTE .STK-MED ONE Metoclopramide HCl 10 mg 05/04/21 11:15 05/04/21 13:11 Reglan 10 Mg/2 Ml IV 05/04/21 11:16 10 mg STAT ONE Administration Metoclopramide HCl Confirm 05/04/21 13:03 Reglan 10 Mg/2 Ml Administered 05/04/21 13:04 Dose 10 mg .ROUTE .STK-MED ONE Ondansetron HCl 4 mg 05/04/21 11:13 05/04/21 11:16 Zofran 4 Mg/2 Ml Vial IV 05/04/21 11:14 Not Given STAT ONE Pantoprazole Sodium 40 mg 05/04/21 11:13 05/04/21 13:11 Protonix 40 Mg Iv IV 05/04/21 11:14 40 mg STAT ONE Administration Pantoprazole Sodium Confirm 05/04/21 13:03 Protonix 40 Mg Iv Administered 05/04/21 13:04 Dose 40 mg IV .STK-MED ONE Lab/Rad Data: Laboratory Result Diagrams 05/04/21 12:09 05/04/21 11:38 Laboratory Results 05/04/21 05/04/21 05/04/21 Range/Units 12:09 11:38 11:33 WBC 5.8 (4.0-10.5) K/mm3 RBC 5.68 H (4.1-5.4) M/mm3 Hgb 16.8 H (12.0-16.0) gm/dl Hct 50.5 H (35-47) % MCV 88.9 (78-100) fl MCH 29.6 (26-32) pg MCHC 33.3 (32-36) g/dl RDW 13.5 (11.5-14.0) % Plt Count 229 (150-450) K/mm3 MPV 9.5 (7.5-11.0) fl Gran % 63.0 (36.0-66.0) % Eos # (Auto) 0.12 (0-0.5) Absolute Lymphs (auto) 1.45 (1.0-4.6) Absolute Monos (auto) 0.55 (0.0-1.3) Lymphocytes % 24.8 (24.0-44.0) % Monocytes % 9.4 (0.0-12.0) % Eosinophils % 2.1 (0.00-5.0) % Basophils % 0.7 (0.0-0.4) % Absolute Granulocytes 3.68 (1.4-6.9) Basophils # 0.04 (0-0.4) Sodium 142 (137-145) mmol/L Potassium 3.5 (3.5-5.1) mmol/L Chloride 104 (98-107) mmol/L Carbon Dioxide 25 (22-30) mmol/L Anion Gap 17.2 H (5-15) MEQ/L BUN 10 (7-17) mg/dL Creatinine 1.26 H (0.52-1.04) mg/dL Estimated GFR 48.2 ML/MIN Glucose 95 (74-106) mg/dL Calcium 9.5 (8.4-10.2) mg/dL Total Bilirubin 0.50 (0.2-1.3) mg/dL AST 31 (14-36) U/L ALT 38 H (0-35) U/L Alkaline Phosphatase 108 (38-126) U/L Serum Total Protein 8.0 (6.3-8.2) g/dL Albumin 4.7 (3.5-5.0) g/dL Lipase 67 (23-300) U/L Urine Color YELLOW (YELLOW) Urine Appearance SLIGHTLY CLOUDY (CLEAR) Urine pH 5.0 (5-6) Ur Specific Anderson 1.021 (1.005-1.025) Urine Protein 30 (Negative) Urine Ketones MODERATE (NEGATIVE) Urine Blood SMALL (0-5) Damian/ul Urine Nitrite NEGATIVE (NEGATIVE) Urine Bilirubin NEGATIVE (NEGATIVE) Urine Urobilinogen NEGATIVE (0-1) mg/dL Ur Leukocyte Esterase NEGATIVE (NEGATIVE) Urine WBC (Auto) 3-5 (0-5) /HPF Urine RBC (Auto) NONE (0-2) /HPF U Epithel Cells (Auto) RARE (FEW) /HPF Urine Bacteria (Auto) RARE (NEGATIVE) /HPF Urine Mucus (Auto) SLIGHT (NEGATIVE) /HPF Urine Culture Reflexed YES (NO) Urine Glucose NEGATIVE (NEGATIVE) mg/dL - Progress Progress: improved, re-examined Progress Note: 05/04/21 14:15 She is given fluid bolus along with Toradol/Zofran and Protonix, on reevaluation her pain is much improved. She has a normal white count. Chemistry profile showed some dehydration consistent with mildly elevated gap and mild elevation in creatinine/FALLON. She is advised to drink plenty of fluids at home. We will give her Zofran to continue. Discussed with patient about signs symptoms of worsening needing return to ER which she seems understanding. She does not have any peritoneal signs and she does have some tenderness on the left upper abdomen, could have some element of gastritis as well. I would start her on a short course of Protonix although she is taking Pepcid already. She is advised to take Tylenol as needed and no ibuprofen 05/04/21 14:17 Counseled pt/family regarding: lab results, diagnosis, need for follow-up - Departure Departure Disposition: Home Clinical Impression: Dehydration, FALLON (acute kidney injury), Nausea Abdominal pain Qualifiers: Abdominal location: left upper quadrant Qualified Code(s): R10.12 - Left upper quadrant pain Condition: Stable Critical Care Time: No Referrals: GISELLE ALMARAZ MD [Primary Care Provider] - (1-2 days for reevaluation) Instructions: Acute Abdomen (Belly Pain) Additional Instructions: Drink plenty of fluids. Take Tylenol and Zofran as needed. Follow-up with your primary care physician for reevaluation. Do not take ibuprofen/Aleve or any other NSAIDs. Return to ER for worsening abdominal pain/vomiting or inability to hold much down. Prescriptions: Ondansetron ODT 4 MG [Zofran Odt 4 mg] 4 mg PO Q6H PRN PRN #10 tab.rapdis PRN Reason: Vomiting PANTOPRAZOLE 40 mg Tablet [Protonix 40MG Tablet] 40 mg PO QAM #30 tab
[2021-05-04 12:23] LABS: Absolute Neutrophil Ct (ANC) 3.68 (1.4-6.9); BASOPHIL % 0.7 % (0.0-0.4); Basophil (Absolute #) 0.04 (0-0.4); Eosinophil % 2.1 % (0.00-5.0); Eosinophil (Absolute #) 0.12 (0-0.5); Hematocrit 50.5 % (35-47); Hemoglobin 16.8 gm/dl (12.0-16.0); Lymphocyte (Absolute #) 1.45 (1.0-4.6); Lymphocytes % 24.8 % (24.0-44.0); Mean Cell Volume 88.9 fl (78-100); Mean Corpuscular Hemoglobin 29.6 pg (26-32); Mean Corpuscular Hgb Concent. 33.3 g/dl (32-36); Mean Platelet Volume 9.5 fl (7.5-11.0); Monocyte (Absolute #) 0.55 (0.0-1.3); Monocytes % 9.4 % (0.0-12.0); Platelet Count 229 K/mm3 (150-450); Red Blood Count 5.68 M/mm3 (4.1-5.4); Red Cell Distribution Width 13.5 % (11.5-14.0); White Blood Count 5.8 K/mm3 (4.0-10.5)
[2021-05-04 12:33] LABS: ALBUMIN 4.7 g/dL (3.5-5.0); ANION GAP 17.2 MEQ/L (5-15); BILIRUBIN,TOTAL 0.5 mg/dL (0.2-1.3); Calcium 9.5 mg/dL (8.4-10.2); Creatinine 1 1.26 mg/dL (0.52-1.04); EST GLOMERULAR FILTRATION RATE 48.2 ML/MIN; Potassium 3.5 mmol/L (3.5-5.1)
[2021-05-04] MEDS ORDERED: TORAdol 30 mg Injection ONE (13:03)
[2021-05-04] MEDS ORDERED: Reglan 10 MG/2 ML ONE (13:03)
[2021-05-04] MEDS ORDERED: Sodium Chloride 0.9% 1000 ML 1,000 ML ONE (13:03)
[2021-05-04 13:15] VITALS: O2SAT 98
[2021-05-04 15:07] VITALS: BP 156/56; PULSE 85
== END 2021-05-04 15:08 | disposition home or self-care (01) ==
LOC: ED 10:27
DX: E86.0 Dehydration (principal); N17.9 Acute kidney failure, unspecified; R10.12 Left upper quadrant pain; R10.33 Periumbilical pain; R11.0 Nausea; R53.83 Other fatigue; R53.1 Weakness; Z79.899 Other long term (current) drug therapy; I10 Essential (primary) hypertension; E03.9 Hypothyroidism, unspecified
CPT/HCPCS: 36415; 80053; 81001; 83690; 85025; 87086; 96360; 96374; 96375; 99284; J1885

== ENCOUNTER 2021-05-08 16:17 | Emergency (ER) | payer OTHER ==
[2021-05-08 16:29] VITALS: BP 183/98; PULSE 100
--- NOTE | 2021-05-08 16:34 | ERPHSYRPT ---
- History of Present Illness Time Seen by Provider: 05/08/21 16:19 Source: patient Exam Limitations: no limitations Physician History: 50 years old female presented to ER with chief complaint of left earache since last night moderate to severe sharp pain and this morning she woke up with some discharge clear to yellow with some improvement in pain. Denies any fever or chills. No decreased hearing. Patient also report having some blocked up right ear as well with some nasal congestion. Timing/Duration: abrupt onset, yesterday Severity: moderate ENT Location: ear (L) Prearrival Treatment: over the counter meds Associated Symptoms: ear pain (L), ear drainage, No fever, No chills, No change in hearing Allergies/Adverse Reactions: aspirin Allergy (Intermediate, Verified 05/04/21 10:55) Rash pt states allergic to baby aspirin/orange coating Home Medications: Escitalopram Oxalate [Lexapro] 10 mg PO DAILY 02/29/16 [History] Levothyroxine Sodium 75 Mcg [Synthroid 75 Mcg] 75 mcg PO DAILY 02/29/16 [History] raNITIdine HCL [Zantac 75] 75 mg PO BID 02/29/16 [History] Hx Tetanus, Diphtheria Vaccination/Date Given: Yes Hx Influenza Vaccination/Date Given: Yes Hx Pneumococcal Vaccination/Date Given: No Travel Risk - Vaccine Status Have you recieved a Covid-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: Yes 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[employer] - Vaccination Dates Date of 2cond Vaccination (if applicable): 04/13/21 - Review of Systems Constitutional: No Symptoms Eyes: No Symptoms Ears, Nose, & Throat: Ear Pain, Ear Discharge, No Hearing Changes Respiratory: No Symptoms Cardiac: No Symptoms Abdominal/Gastrointestinal: No Symptoms Genitourinary Symptoms: No Symptoms Musculoskeletal: No Symptoms Skin: No Symptoms Neurological: No Symptoms Psychological: No Symptoms Hematologic/Lymphatic: No Symptoms - Past Medical History Pertinent Past Medical History: Yes Neurological History: Migraines ENT History: No Pertinent History Cardiac History: Hypertension Respiratory History: Asthma Endocrine Medical History: Hypothyroidism Musculoskeletal History: Arthritis GI Medical History: GERD, Gallbladder Disease History: No Pertinent History Psycho-Social History: Depression Female Reproductive Disorders: Abnormal Uterine Bleeding Other Medical History: zantac, welbutrin, lthyroxine,allergic to baby aspirin and cholesteral meds, allergic to cinnamon. - Past Surgical History Past Surgical History: Yes Neuro Surgical History: No Pertinent History Cardiac: No Pertinent History Respiratory: No Pertinent History Gastrointestinal: Cholecystectomy Genitourinary: No Pertinent History Musculoskeletal: No Pertinent History Female Surgical History: Section, Hysterectomy, Tubal Ligation Other Surgical History: tonsilectomy - Social History Smoking Status: Never smoker Exposure to second hand smoke: Yes Drug Use: none Patient Lives Alone: No - Physical Exam General Appearance: no apparent distress, alert Eye Exam: bilateral eye: normal inspection, PERRL, EOMI Ear Exam: right ear: canal normal, discharge, TM perforation, bilateral ear: auricle normal, erythema, TM red Nasal Exam: normal inspection Throat Exam: normal, pharynx normal Neck Exam: normal inspection, non-tender, supple, full range of motion Cardiovascular/Respiratory Exam: normal breath sounds, regular rate/rhythm Neurologic Exam: alert, oriented x 3, cooperative, 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 Currently pain is better and rates 34/10 and does not want any pain medications. We will start him on oral and topical antibiotics. Tylenol ibuprofen for symptomatic relief and outpatient follow-up. 05/08/21 16:37 Counseled pt/family regarding: diagnosis, need for follow-up - Departure Departure Disposition: Home Clinical Impression: Otitis media Qualifiers: Otitis media type: suppurative Chronicity: acute Laterality: bilateral Recurrence: not specified as recurrent Spontaneous tympanic membrane rupture: with spontaneous rupture Qualified Code(s): H66.013 - Acute suppurative otitis media with spontaneous rupture of ear drum, bilateral Condition: Stable Critical Care Time: No Referrals: GISELLE ALMARAZ MD [Primary Care Provider] - Follow Up with PCP/3 days Instructions: Serous Otitis Media (DC) Additional Instructions: Take Tylenol/ibuprofen as needed for pain. Keep it clean. Follow-up with primary care for reevaluation next few days. Return to ER for worsening pain, discharge, fever chills, decreased hearing etc. Prescriptions: Amoxicillin/Potassium Clav [Augmentin 875-125 Tablet] 875 mg PO BID 10 Days #20 tablet Ofloxacin Otic 5 ml [Floxin Otic 5 ML] 10 drops OT DAILY 7 Days #1 bottle
[2021-05-08 16:38] VITALS: O2SAT 96
== END 2021-05-08 16:47 | disposition home or self-care (01) ==
LOC: ED 16:17
DX: H66.013 Acute suppurative otitis media with spontaneous rupture of ear drum, bilateral (principal)
CPT/HCPCS: 99283

== ENCOUNTER 2021-07-05 15:47 | Emergency (ER) | payer OTHER ==
[2021-07-05 16:10] VITALS: PULSE 74
--- NOTE | 2021-07-05 16:43 | ERPHSYRPT ---
- History of Present Illness Time Seen by Provider: 07/05/21 16:30 Source: patient Exam Limitations: no limitations Patient Subjective Stated Complaint: Pt states "For the past two days my left leg has been swelling up from the lower thigh down. I am having a little pain in the back of my knee." Triage Nursing Assessment: Pt presented alert and oriented X 3, skin pwd. Pt ambulates with an upright steady gait, able to speak in clear full sentences pt has slight swelling noted to left lower extremity. CSM X 4 Physician History: Patient is a 50-year-old female presents to our ED with complaints of left lower extremity swelling. Patient thinks she may have a blood clot. No history of blood clots. Patient's left lower extremity swelling started 2 days ago. Symptoms have been constant. Patient called her primary care provider. She currently has an appointment scheduled for tomorrow. However patient has a family member who is a nurse who advised coming to the ED for an ultrasound to rule out DVT. No associated chest pain or shortness of breath. No nausea vomiting or diaphoresis. She does have some pain posterior left knee. She does not recall any trauma or any strenuous activity. Symptoms are mild in intensity. No specific worsening improving factors. Patient declined pain medication. She voices no other complaints or concerns at this time. Timing/Duration: day(s) (2 days ago) Severity: mild Modifying Factors: Improves With: nothing, other (Palpation to the left posterior leg reproduces symptoms.) Associated Symptoms: denies symptoms Allergies/Adverse Reactions: aspirin Allergy (Intermediate, Verified 05/04/21 10:55) Rash pt states allergic to baby aspirin/orange coating Home Medications: Levothyroxine Sodium 75 Mcg [Synthroid 75 Mcg] 75 mcg PO DAILY 02/29/16 [History] raNITIdine HCL [Zantac 75] 75 mg PO BID 02/29/16 [History] Hx Tetanus, Diphtheria Vaccination/Date Given: No Hx Influenza Vaccination/Date Given: No Hx Pneumococcal Vaccination/Date Given: No Immunizations Up to Date: Yes Travel Risk - International Travel Have you traveled outside of the country in past 3 weeks: No - Coronavirus Screening Are you exhibiting any of the following symptoms?: No Close contact with a COVID-19 positive Pt in past 14-21 Days: No - Vaccine Status Have you recieved a Covid-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: 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[employer] - Vaccination Dates Date of 2cond Vaccination (if applicable): 04/13/2021 - Review of Systems Constitutional: No Symptoms, No Fever, No Chills Eyes: No Symptoms Ears, Nose, & Throat: No Symptoms Respiratory: No Symptoms, No Cough, No Dyspnea Cardiac: No Symptoms, No Chest Pain, No Edema, No Syncope Abdominal/Gastrointestinal: No Symptoms, No Abdominal Pain, No Nausea, No Vomiting, No Diarrhea Genitourinary Symptoms: No Symptoms, No Dysuria Musculoskeletal: No Symptoms, No Back Pain, No Neck Pain Skin: No Symptoms, No Rash Neurological: No Symptoms, No Dizziness, No Focal Weakness, No Sensory Changes Psychological: No Symptoms Endocrine: No Symptoms Hematologic/Lymphatic: No Symptoms Immunological/Allergic: No Symptoms All Other Systems: Reviewed and Negative - Past Medical History Pertinent Past Medical History: Yes Neurological History: Migraines ENT History: No Pertinent History Cardiac History: Hypertension Respiratory History: Asthma Endocrine Medical History: Hypothyroidism Musculoskeletal History: Arthritis GI Medical History: GERD, Gallbladder Disease History: No Pertinent History Psycho-Social History: Depression Female Reproductive Disorders: Abnormal Uterine Bleeding Other Medical History: zantac, welbutrin, lthyroxine,allergic to baby aspirin and cholesteral meds, allergic to cinnamon. - Past Surgical History Past Surgical History: Yes Neuro Surgical History: No Pertinent History Cardiac: No Pertinent History Respiratory: No Pertinent History Gastrointestinal: Cholecystectomy Genitourinary: No Pertinent History Musculoskeletal: No Pertinent History Female Surgical History: Section, Hysterectomy, Tubal Ligation Other Surgical History: tonsilectomy - Social History Smoking Status: Never smoker Exposure to second hand smoke: Yes Drug Use: none Patient Lives Alone: No - Female History Hx Last Menstrual Period: hysterctomy Hx Now: No - Nursing Vital Signs Nursing Vital Signs: Initial Vital Signs Temperature 97.8 F 07/05/21 16:04 Pulse Rate 74 07/05/21 16:04 Respiratory Rate 20 07/05/21 16:04 Blood Pressure 184/86 07/05/21 16:04 O2 Sat by Pulse Oximetry 98 07/05/21 16:04 Pain Scale Pain Intensity 4 - Physical Exam General Appearance: no apparent distress, alert Eye Exam: PERRL/EOMI, eyes nml inspection Ears, Nose, Throat Exam: normal ENT inspection, TMs normal, pharynx normal, moist mucous membranes Neck Exam: normal inspection, non-tender, supple, full range of motion Respiratory Exam: normal breath sounds, lungs clear, No respiratory distress Cardiovascular Exam: regular rate/rhythm, normal heart sounds, normal peripheral pulses Gastrointestinal/Abdomen Exam: soft, normal bowel sounds, No tenderness, No mass Back Exam: normal inspection, normal range of motion, No CVA tenderness, No vertebral tenderness Extremity Exam: normal inspection, normal range of motion, pelvis stable, swelling, other (Mild tenderness palpation of the left posterior knee.) Neurologic Exam: alert, oriented x 3, cooperative, normal mood/affect, sensation nml, No motor deficits Skin Exam: normal color, warm, dry, No rash Lymphatic Exam: No adenopathy SpO2 Interpretation: normal SpO2: 98 O2 Delivery: Room Air - Course Nursing assessment & vital signs reviewed: Yes - Radiology Ultrasound Exam Venous Lower Extremity Ultrasound: tele radiology report (Left leg negative for DVT.) Ordered Tests: Active Orders 24 hr Category Date Time Status VENOUS UNILAT/LIMITED EXTREMIT [US] Stat Exams 07/05/21 16:15 Completed - Progress Progress: improved Progress Note: Patient reassessed. She remains asymptomatic. Vital stable. Ultrasound negative for DVT left lower extremity. No indication for further work-up at this time. Will discharge home. Patient agrees to follow-up with primary care doctor within 48 hours for reevaluation Portions of this note were created with voice recognition technology. There may be grammatical, spelling, punctuation or sound alike errors 07/05/21 17:13 Counseled pt/family regarding: diagnosis, need for follow-up, rad results - Departure Departure Disposition: Home Clinical Impression: Left leg swelling Condition: Stable Critical Care Time: No Referrals: GISELLE ALMARAZ MD [Primary Care Provider] - Additional Instructions: Discharge/Care Plan DAYNESHAUN was seen on 07/05/21 in the Emergency Room. The patient was counseled regarding Diagnosis,Lab results, Imaging studies, need for follow up and when to return to the Emergency Room. Prescriptions given: Discharge Note I have spoken with the patient and/or caregivers. I have explained the patient's condition, diagnosis and treatment plan based on the information available to me at this time. I have answered the patient's and/or caregiver's questions and addressed any concerns. The patient and/or caregivers have as good understanding of the patient's diagnosis, condition and treatment plan as can be expected at this point. The vital signs have been stable. The patient's condition is stable and appropriate for discharge from the emergency department. The patient will pursue further outpatient evaluation with the primary care physician or other designated or consulting physician as outlined in the discharge instructions. The patient and/or caregivers are agreeable to this plan of care and follow-up instructions have been explained in detail. The patient and/or caregivers have received these instruction. The patient/and or caregivers are aware that any significant change in condition or worsening of symptoms should prompt an immediate return to this or the closest emergency department or call 911.
--- NOTE | 2021-07-05 17:07 | XRAY ---
Indication: Left leg pain. Two-dimensional sonogram and color Doppler imaging of the major venous vessels of the left leg performed. Comparison: None No thrombus seen in the examined deep venous vessels of the left leg including greater saphenous vein. Veins demonstrate normal compressibility. Venous waveforms are normal with and without augmentation. Impression: Left leg negative for DVT.
[2021-07-05 17:29] VITALS: BP 192/87; O2SAT 97
== END 2021-07-05 17:30 | disposition home or self-care (01) ==
LOC: ED 15:47
DX: M79.89 Other specified soft tissue disorders (principal); M79.605 Pain in left leg; Z79.899 Other long term (current) drug therapy; I10 Essential (primary) hypertension
CPT/HCPCS: 93971; 99283

== ENCOUNTER 2021-08-07 09:08 | Emergency (ER) | payer OTHER ==
[2021-08-07] MEDS ORDERED: Sodium Chloride 0.9% 1000 ML 1,000 ML IV STA (09:23)
[2021-08-07] MEDS ORDERED: PROTONIX 40 MG IV IV ONE ×2 (09:23→09:42)
[2021-08-07] MEDS ORDERED: Zofran 4 MG/2 ML VIAL IV ONE (09:23)
--- NOTE | 2021-08-07 09:27 | ERPHSYRPT ---
- History of Present Illness Time Seen by Provider: 08/07/21 09:25 Historian: patient Exam Limitations: no limitations Patient Subjective Stated Complaint: pt here for left sided abd pain since sun. was placed on antiboitcs and states she does not feel better, nausea and loose stools Triage Nursing Assessment: pt alert, resp easy, skin w/d/p. face mask in place, abd soft, no edema Physician History: Patient is 50-year-old female with significant past medical history of hypertension started having abdominal pain since Sunday for which she called in office and was started on Cipro 500 mg twice a day for her abdominal pain considering diagnosis of diverticulitis. Patient took antibiotic but without any help in her condition gradually lately started getting worse. Her pain is also getting worse associated with loss of appetite nausea and vomiting. Her pain is mainly in left upper quadrant area and get worse on palpation as well as on palpation on left upper quadrant patient get nauseous. Patient is comp laining of low-grade fever with chills. Patient denies any urine trouble. Timing/Duration: day(s) (three) Activities at Onset: none Quality: cramping Abdominal Pain Onset Location: LUQ Pain Radiation: no radiation Severity of Pain-Max: moderate Severity of Pain-Current: moderate Modifying Factors: Improves With: nothing Associated Symptoms: loss of appetite, nausea, vomiting Previous symptoms: no prior history Allergies/Adverse Reactions: aspirin Allergy (Intermediate, Verified 08/07/21 09:21) Rash pt states allergic to baby aspirin/orange coating Home Medications: Levothyroxine Sodium 75 Mcg [Synthroid 75 Mcg] 75 mcg PO DAILY 02/29/16 [History] raNITIdine HCL [Zantac 75] 75 mg PO BID 02/29/16 [History] Famotidine 1 ea DAILY 08/07/21 [History] Gabapentin 400 mg [Neurontin 400 MG] 1 ea TID 08/07/21 [History] Metronidazole 500 mg [Flagyl 500 MG] 1 ea BID 08/07/21 [History] Tizanidine HCl 1 ea DAILY 08/07/21 [History] buPROPion HCL [Bupropion HCl Sr] 1 ea DAILY 08/07/21 [History] hydrOXYzine HCL [Hydroxyzine HCl] 1 ea DAILY 08/07/21 [History] Hx Tetanus, Diphtheria Vaccination/Date Given: No Hx Influenza Vaccination/Date Given: No Hx Pneumococcal Vaccination/Date Given: No Immunizations Up to Date: Yes Travel Risk - International Travel Have you traveled outside of the country in past 3 weeks: No - Coronavirus Screening Are you exhibiting any of the following symptoms?: No - Vaccine Status Have you recieved a Covid-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: Yes 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[employer]: [employer] - Vaccination Dates Date of 2cond Vaccination (if applicable): 04/13/2021 - Review of Systems Constitutional: Fever, Chills Eyes: No Symptoms Ears, Nose, & Throat: No Symptoms Respiratory: No Cough, No Dyspnea Cardiac: No Chest Pain, No Edema, No Syncope Abdominal/Gastrointestinal: Abdominal Pain, Nausea, Vomiting, Appetite Changes, No Diarrhea Genitourinary Symptoms: No Dysuria Musculoskeletal: No Back Pain, No Neck Pain Skin: No Rash Neurological: No Dizziness, No Focal Weakness, No Sensory Changes Psychological: No Symptoms Endocrine: No Symptoms All Other Systems: Reviewed and Negative - Past Medical History Pertinent Past Medical History: Yes Neurological History: Migraines ENT History: No Pertinent History Cardiac History: Hypertension Respiratory History: Asthma Endocrine Medical History: Hypothyroidism Musculoskeletal History: Arthritis GI Medical History: GERD, Gallbladder Disease History: No Pertinent History Psycho-Social History: Depression Female Reproductive Disorders: Abnormal Uterine Bleeding Other Medical History: zantac, welbutrin, lthyroxine,allergic to baby aspirin and cholesteral meds, allergic to cinnamon. - Past Surgical History Past Surgical History: Yes Neuro Surgical History: No Pertinent History Cardiac: No Pertinent History Respiratory: No Pertinent History Gastrointestinal: Cholecystectomy Genitourinary: No Pertinent History Musculoskeletal: No Pertinent History Female Surgical History: Section, Hysterectomy, Tubal Ligation Other Surgical History: tonsilectomy - Social History Smoking Status: Never smoker Exposure to second hand smoke: Yes Drug Use: none Patient Lives Alone: No - Female History Hx Last Menstrual Period: hyster Hx Now: No - Nursing Vital Signs Nursing Vital Signs: Initial Vital Signs Temperature 97.6 F 08/07/21 09:11 Pulse Rate 76 08/07/21 09:11 Respiratory Rate 18 08/07/21 09:11 Blood Pressure 145/91 08/07/21 09:11 O2 Sat by Pulse Oximetry 99 08/07/21 09:11 Pain Scale Pain Intensity 5 - Physical Exam General Appearance: no apparent distress, alert Eye Exam: PERRL/EOMI, eyes nml inspection Ears, Nose, Throat Exam: normal ENT inspection, pharynx normal, moist mucous membranes Neck Exam: normal inspection, non-tender, supple, full range of motion Respiratory Exam: normal breath sounds, lungs clear, No respiratory distress Cardiovascular Exam: regular rate/rhythm, normal heart sounds Gastrointestinal/Abdomen Exam: soft, tenderness (LUQ), No mass Back Exam: normal inspection, normal range of motion, No CVA tenderness, No vertebral tenderness Extremity Exam: normal inspection, normal range of motion, pelvis stable Neurologic Exam: alert, oriented x 3, cooperative, normal mood/affect, nml cerebellar function, sensation nml, No motor deficits Skin Exam: normal color, warm, dry SpO2: 99 - Course Nursing assessment & vital signs reviewed: Yes - CT Exams Abdomen/Pelvis CT Interpretation: Tele-radiologist Report (diverticulosis, no diverticulitis), Normal Appendix, No appendicitis Ordered Tests: Active Orders 24 hr Category Date Time Status EKG-ER Only STAT Care 08/07/21 09:23 Active ABDOMEN AND PELVIS W/0 CONTRAS [CT] Stat Exams 08/07/21 09:55 Taken AMYLASE Stat Lab 08/07/21 09:35 Received CBC W DIFF Stat Lab 08/07/21 09:23 Completed CMP Stat Lab 08/07/21 09:35 Received CULTURE,URINE Stat Lab 08/07/21 09:40 Received LIPASE Stat Lab 08/07/21 09:35 Received Lactic Acid Stat Lab 08/07/21 09:23 Completed UA W/RFX UR CULTURE Stat Lab 08/07/21 09:40 Completed Medication Summary Discontinued Medications Generic Name Dose Route Start Last Admin Trade Name Silva PRN Reason Stop Dose Admin Sodium Chloride 1,000 mls @ 999 mls/hr 08/07/21 09:23 08/07/21 09:45 Sodium Chloride 0.9% 1000 Ml IV 08/07/21 10:23 999 mls/hr .Q1H1M STA Administration Sodium Chloride Confirm 08/07/21 09:42 Sodium Chloride 0.9% 1000 Ml Administered 08/07/21 09:43 Dose 1,000 mls @ ud .ROUTE .STK-MED ONE Ondansetron HCl 4 mg 08/07/21 09:23 08/07/21 09:45 Ondansetron Hcl 4 Mg/2 Ml Vial IV 08/07/21 09:24 4 mg STAT ONE Administration Ondansetron HCl Confirm 08/07/21 09:42 Ondansetron Hcl 4 Mg/2 Ml Vial Administered 08/07/21 09:43 Dose 4 mg .ROUTE .STK-MED ONE Pantoprazole Sodium 40 mg 08/07/21 09:23 08/07/21 09:45 Pantoprazole 40 Mg Vial IV 08/07/21 09:24 40 mg STAT ONE Administration Pantoprazole Sodium Confirm 08/07/21 09:42 Pantoprazole 40 Mg Vial Administered 08/07/21 09:43 Dose 40 mg IV .STK-MED ONE Lab/Rad Data: Laboratory Result Diagrams 08/07/21 09:23 Laboratory Results 08/07/21 08/07/21 08/07/21 Range/Units 09:40 09:23 09:23 WBC 6.6 (4.0-10.5) K/mm3 RBC 5.20 (4.1-5.4) M/mm3 Hgb 15.5 (12.0-16.0) gm/dl Hct 46.5 (35-47) % MCV 89.4 (78-100) fl MCH 29.8 (26-32) pg MCHC 33.3 (32-36) g/dl RDW 13.5 (11.5-14.0) % Plt Count 259 (150-450) K/mm3 MPV 9.2 (7.5-11.0) fl Gran % 61.8 (36.0-66.0) % Eos # (Auto) 0.09 (0-0.5) Absolute Lymphs (auto) 1.81 (1.0-4.6) Absolute Monos (auto) 0.59 (0.0-1.3) Lymphocytes % 27.4 (24.0-44.0) % Monocytes % 8.9 (0.0-12.0) % Eosinophils % 1.4 (0.00-5.0) % Basophils % 0.5 (0.0-0.4) % Absolute Granulocytes 4.09 (1.4-6.9) Basophils # 0.03 (0-0.4) Lactic Acid 1.0 (0.4-2.0) Urine Color YELLOW (YELLOW) Urine Appearance CLOUDY (CLEAR) Urine pH 5.0 (5-6) Ur Specific [place] 1.016 (1.005-1.025) Urine Protein NEGATIVE (Negative) Urine Ketones MODERATE (NEGATIVE) Urine Blood SMALL (0-5) Damian/ul Urine Nitrite NEGATIVE (NEGATIVE) Urine Bilirubin NEGATIVE (NEGATIVE) Urine Urobilinogen NEGATIVE (0-1) mg/dL Ur Leukocyte Esterase SMALL (NEGATIVE) Urine WBC (Auto) 3-5 (0-5) /HPF Urine RBC (Auto) NONE (0-2) /HPF U Epithel Cells (Auto) FEW (FEW) /HPF Urine Bacteria (Auto) RARE (NEGATIVE) /HPF Urine Mucus (Auto) SLIGHT (NEGATIVE) /HPF Urine Culture Reflexed YES (NO) Urine Glucose NEGATIVE (NEGATIVE) mg/dL - Progress Progress: improved, pain not gone completely Counseled pt/family regarding: lab results, diagnosis, need for follow-up, rad results - Departure Departure Disposition: Home Clinical Impression: Diverticulosis Abdominal pain Qualifiers: Abdominal location: left upper quadrant Qualified Code(s): R10.12 - Left upper quadrant pain Condition: Stable Critical Care Time: Yes Critical Care Time(excluding separately billable procedures): Critical 30-74 m ins Referrals: GISELLE ALMARAZ MD [Primary Care Provider] - Follow Up with PCP/3 days Instructions: Acute Abdomen (Belly Pain), Adult (DC) Prescriptions: Ondansetron ODT 4 MG [Zofran Odt 4 mg] 4 mg PO Q6H PRN PRN #10 tablet PRN Reason: Nausea
[2021-08-07] MEDS ORDERED: Zofran 4 MG/2 ML VIAL ONE (09:42)
[2021-08-07] MEDS ORDERED: Sodium Chloride 0.9% 1000 ML 1,000 ML ONE (09:42)
[2021-08-07 09:44] LABS: Absolute Neutrophil Ct (ANC) 4.09 (1.4-6.9); BASOPHIL % 0.5 % (0.0-0.4); Basophil (Absolute #) 0.03 (0-0.4); Eosinophil % 1.4 % (0.00-5.0); Eosinophil (Absolute #) 0.09 (0-0.5); Hematocrit 46.5 % (35-47); Hemoglobin 15.5 gm/dl (12.0-16.0); Lymphocyte (Absolute #) 1.81 (1.0-4.6); Lymphocytes % 27.4 % (24.0-44.0); Mean Cell Volume 89.4 fl (78-100); Mean Corpuscular Hemoglobin 29.8 pg (26-32); Mean Corpuscular Hgb Concent. 33.3 g/dl (32-36); Mean Platelet Volume 9.2 fl (7.5-11.0); Monocyte (Absolute #) 0.59 (0.0-1.3); Monocytes % 8.9 % (0.0-12.0); Neutrophil % 61.8 % (36.0-66.0); Platelet Count 259 K/mm3 (150-450); Red Cell Distribution Width 13.5 % (11.5-14.0); White Blood Count 6.6 K/mm3 (4.0-10.5)
[2021-08-07 09:50] LABS: Appearance CLOUDY (CLEAR); Bilirubin NEGATIVE (NEGATIVE); Blood SMALL Ery/ul (0-5); Epithelial Cells FEW /HPF (FEW); Glucose NEGATIVE (NEGATIVE); Ketones MODERATE (NEGATIVE); Leukocyte Esterase SMALL (NEGATIVE); Mucus SLIGHT /HPF (NEGATIVE); Nitrite NEGATIVE (NEGATIVE); Protein,Urine Dip NEGATIVE (Negative); Specific Gravity 1.016 (1.005-1.025); Urobilinogen NEGATIVE mg/dL (0-1)
[2021-08-07 10:11] LABS: Bacteria RARE /HPF (NEGATIVE)
[2021-08-07 11:37] LABS: ALBUMIN 4.7 g/dL (3.5-5.0); ANION GAP 18.1 MEQ/L (5-15); BILIRUBIN,TOTAL 0.7 mg/dL (0.2-1.3); Calcium 9.9 mg/dL (8.4-10.2); Creatinine 1 1.3 mg/dL (0.52-1.04); EST GLOMERULAR FILTRATION RATE 46.5 ML/MIN; Potassium 3.6 mmol/L (3.5-5.1); Total Protein 7.8 g/dL (6.3-8.2)
[2021-08-07 12:03] VITALS: BP 151/93; PULSE 72; O2SAT 100
--- NOTE | 2021-08-07 22:09 | XRAY ---
Indication: Left upper quadrant pain. Multiple contiguous axial images obtained through the abdomen and pelvis without contrast. Comparison: May 02, 2021. Lung bases demonstrate stable right middle lobe calcified granuloma. No infiltrate or effusion. Heart not enlarged. Noncontrasted stomach and bowel loops are nonobstructed again with normal appendix. There remains scattered colonic diverticulosis without diverticulitis. Again a few splenic calcified granulomas, cholecystectomy, and hysterectomy. No free fluid/air. Remaining liver, pancreas, spleen, adrenal glands, kidneys, ureters, bladder, and aorta are unremarkable for noncontrast exam. Osseous structures intact. Impression: 1. Again scattered colonic diverticulosis without diverticulitis and old granulomatous disease. 2. Remaining CT abdomen/pelvis without contrast exam is negative. Comment: Preliminary interpretation made by [facility]. No critical discrepancy.
== END 2021-08-07 12:01 | disposition home or self-care (01) ==
LOC: ED 09:08
DX: R10.12 Left upper quadrant pain (principal)
CPT/HCPCS: 36000; 36415; 74176; 80053; 81001; 82150; 83605; 83690; 85025; 87086; 93005; 96374; 96375; 99284; 99291; J2405

== ENCOUNTER 2022-04-03 13:33 | Emergency (ER) | payer OTHER ==
--- NOTE | 2022-04-03 13:35 | ERPHSYRPT ---
- History of Present Illness Time Seen by Provider: 04/03/22 13:35 Source: patient Exam Limitations: no limitations Physician History: This is a 51-year-old white female who presents with dizziness intermittently for the last 2 to 3 days worse today. Patient has a history of hypothyroidism, hypertension, arthritis and depression. Patient states that she did not suffer any head trauma. She also states that her stress issues are no different than usual. Patient has no chest pain. She has no shortness of breath. She has no abdominal pain. She is had no fevers chills. She has no nausea vomiting or diarrhea. Timing/Duration: day(s) (2 to 3 days), intermittent, worse Severity: mild (To moderate intermittently) Associated Symptoms: denies symptoms Allergies/Adverse Reactions: aspirin Allergy (Intermediate, Verified 04/03/22 13:56) Rash pt states allergic to baby aspirin/orange coating Home Medications: Levothyroxine Sodium 75 Mcg [Synthroid 75 Mcg] 75 mcg PO DAILY 02/29/16 [History] Gabapentin [Neurontin ] 1 ea PO QAM 08/07/21 [History] Tizanidine HCl 1 ea PO BID 08/07/21 [History] buPROPion HCL [Bupropion HCl Sr] 2 ea PO QAM 08/07/21 [History] hydrOXYzine HCL [Hydroxyzine HCl] 4 ea PO BID 08/07/21 [History] Amlodipine/Benzapril 5/10 mg [Lotrel 5/10 MG] 1 cap PO DAILY 04/03/22 [History] Nortriptyline HCl 25 mg PO DAILY 04/03/22 [History] Hx Tetanus, Diphtheria Vaccination/Date Given: No Hx Influenza Vaccination/Date Given: No Hx Pneumococcal Vaccination/Date Given: No Travel Risk - International Travel Have you traveled outside of the country in past 3 weeks: No - Coronavirus Screening Are you exhibiting any of the following symptoms?: No Close contact with a COVID-19 positive Pt in past 14-21 Days: No - Vaccine Status Have you recieved a Covid-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: 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[employer] - Vaccination Dates Date of 2cond Vaccination (if applicable): 04/13/2021 - Review of Systems Constitutional: No Symptoms Eyes: No Symptoms Ears, Nose, & Throat: Tinnitus Respiratory: No Symptoms Cardiac: No Symptoms Abdominal/Gastrointestinal: No Symptoms Genitourinary Symptoms: No Symptoms Musculoskeletal: No Symptoms Skin: No Symptoms Neurological: Dizziness Psychological: No Symptoms Endocrine: No Symptoms Hematologic/Lymphatic: No Symptoms Immunological/Allergic: No Symptoms All Other Systems: Reviewed and Negative - Past Medical History Pertinent Past Medical History: Yes Neurological History: Migraines ENT History: No Pertinent History Cardiac History: Hypertension Respiratory History: Asthma Endocrine Medical History: Hypothyroidism Musculoskeletal History: Arthritis GI Medical History: GERD, Gallbladder Disease History: No Pertinent History Psycho-Social History: Depression Female Reproductive Disorders: Abnormal Uterine Bleeding Other Medical History: zantac, welbutrin, lthyroxine,allergic to baby aspirin and cholesteral meds, allergic to cinnamon. - Past Surgical History Past Surgical History: Yes Neuro Surgical History: No Pertinent History Cardiac: No Pertinent History Respiratory: No Pertinent History Gastrointestinal: Cholecystectomy Genitourinary: No Pertinent History Musculoskeletal: No Pertinent History Female Surgical History: Section, Hysterectomy, Tubal Ligation Other Surgical History: tonsilectomy - Social History Smoking Status: Never smoker Exposure to second hand smoke: Yes Drug Use: none Patient Lives Alone: No - Nursing Vital Signs Nursing Vital Signs: Initial Vital Signs Temperature 97.2 F 04/03/22 13:43 Pulse Rate 99 H 04/03/22 13:43 Blood Pressure 170/94 04/03/22 13:43 O2 Sat by Pulse Oximetry 98 04/03/22 13:43 Pain Scale Pain Intensity 5 - Physical Exam General Appearance: no apparent distress, alert, anxiety, obese Eye Exam: PERRL/EOMI, eyes nml inspection Ears, Nose, Throat Exam: normal ENT inspection, moist mucous membranes Neck Exam: normal inspection, non-tender, supple, full range of motion Respiratory Exam: normal breath sounds, lungs clear, airway intact, No chest tenderness, No respiratory distress Cardiovascular Exam: regular rate/rhythm, normal heart sounds, normal peripheral pulses Gastrointestinal/Abdomen Exam: soft, normal bowel sounds, No tenderness Pelvic Exam: not done Rectal Exam: not done Back Exam: normal inspection, normal range of motion, No CVA tenderness, No vertebral tenderness Extremity Exam: normal inspection, normal range of motion, pelvis stable Neurologic Exam: alert, oriented x 3, cooperative, 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, normal mood/affect, nml cerebellar function, nml station & gait, sensation nml, No facial droop, No slurred speech Skin Exam: normal color, warm, dry Lymphatic Exam: No adenopathy SpO2 Interpretation: normal O2 Delivery: Room Air - Course Nursing assessment & vital signs reviewed: Yes EKG Interpreted by Me: RATE (99), Sinus Rhythm, NORMAL AXIS, NORMAL INTERVALS, NORMAL QRS, NORMAL ST-T, Other (No acute ischemic changes on today's EKG.) Ordered Tests: Active Orders 24 hr Category Date Time Status EKG-ER Only STAT Care 04/03/22 14:05 Active IV Insertion STAT Care 04/03/22 14:44 Active HEAD WITHOUT CONTRAST [CT] Stat Exams 04/03/22 14:05 Completed CBC W DIFF Stat Lab 04/03/22 14:35 Completed CMP Stat Lab 04/03/22 14:35 Completed CULTURE,URINE Stat Lab 04/03/22 Received ETHYL ALCOHOL Stat Lab 04/03/22 14:35 Completed MAGNESIUM Stat Lab 04/03/22 14:35 Completed T4 (Thyroxine) Stat Lab 04/03/22 14:35 Completed TROPONIN Q3H Lab 04/03/22 14:35 Completed TROPONIN Q3H Lab 04/03/22 17:15 Ordered TROPONIN Q3H Lab 04/03/22 20:15 Ordered TROPONIN Q3H Lab 04/03/22 23:15 Ordered TROPONIN Q3H Lab 04/04/22 02:15 Ordered TSH [TSH, 3RD Generation] Stat Lab 04/03/22 14:30 Completed UA W/RFX CULTURE Stat Lab 04/03/22 Completed Medication Summary Discontinued Medications Generic Name Dose Route Start Last Admin Trade Name Silva PRN Reason Stop Dose Admin Sodium Chloride 1,000 mls @ 999 mls/hr 04/03/22 14:05 04/03/22 15:56 Sodium Chloride 0.9% 1000 Ml IV 04/03/22 15:05 Infused .Q1H1M STA Infusion Sodium Chloride Confirm 04/03/22 14:39 Sodium Chloride 0.9% 1000 Ml Administered 04/03/22 14:40 Dose 1,000 mls @ ud .ROUTE .[facility]-MED ONE Lab/Rad Data: Laboratory Result Diagrams 04/03/22 14:35 04/03/22 14:35 Laboratory Results 04/03/22 04/03/22 04/03/22 Range/Units Unknown 14:35 14:35 WBC (4.0-10.5) x10^3/uL RBC (4.1-5.4) x10^6/uL Hgb (12.0-16.0) g/dL Hct (35-47) % MCV (78-100) fL MCH (26-32) pg MCHC (32-36) g/dL RDW (11.5-14.0) % Plt Count (150-450) x10^3/uL MPV (7.5-11.0) fL Gran % (36.0-66.0) % Immature Gran % (Auto) (0.00-0.4) % Nucleat RBC Rel Count (0.00-0.1) % Eos # (Auto) (0-0.5) x10^3/uL Immature Gran # (Auto) (0.00-0.03) x10^3u/L Absolute Lymphs (auto) (1.0-4.6) x10^3/uL Absolute Monos (auto) (0.0-1.3) x10^3/uL Absolute Nucleated RBC (0.00-0.01) x10^3u/L Lymphocytes % (24.0-44.0) % Monocytes % (0.0-12.0) % Eosinophils % (0.00-5.0) % Basophils % (0.0-0.4) % Absolute Granulocytes (1.4-6.9) x10^3/uL Basophils # (0-0.4) x10^3/uL Sodium (137-145) mmol/L Potassium (3.5-5.1) mmol/L Chloride (98-107) mmol/L Carbon Dioxide (22-30) mmol/L Anion Gap (5-15) MEQ/L BUN (7-17) mg/dL Creatinine (0.52-1.04) mg/dL Estimated GFR ML/MIN Glucose (74-106) mg/dL Calcium (8.4-10.2) mg/dL Magnesium (1.6-2.3) mg/dL Total Bilirubin (0.2-1.3) mg/dL AST (14-36) U/L ALT (0-35) U/L Alkaline Phosphatase (38-126) U/L Troponin I < 0.012 (0.000-0.034) ng/mL Serum Total Protein (6.3-8.2) g/dL Albumin (3.5-5.0) g/dL Thyroxine (T4) 11.1 H (5.53-10.96) ug/dL TSH 3rd Generation (0.47-4.68) mIU/L Urinalys Dipstick Clnc MAIN LAB Urine Color YELLOW (YELLOW) Urine Appearance CLEAR (CLEAR) Urine pH 7.0 (5-6) Ur Specific [place] 1.020 (1.005-1.025) POC Urine Protein Conf NEGATIVE (Negative) Urine Ketones NEGATIVE (NEGATIVE) Urine Nitrite NEGATIVE (NEGATIVE) Urine Bilirubin NEGATIVE (NEGATIVE) Urine Urobilinogen 0.2 (0-1) mg/dL Urine Leukocytes TRACE (NEGATIVE) Urine WBC (Auto) 0-2 (0-5) /HPF Urine RBC (Auto) NONE (0-2) /HPF U Epithel Cells (Auto) RARE (FEW) /HPF Urine Bacteria (Auto) RARE (NEGATIVE) /HPF Urine RBC NEGATIVE (0-5) Damian/ul Urine Mucus (Auto) SLIGHT (NEGATIVE) /HPF Ur Culture Indicated? YES Urine Glucose NEGATIVE (NEGATIVE) mg/dL Ethyl Alcohol (0-10) mg/dL 04/03/22 04/03/22 04/03/22 Range/Units 14:35 14:35 14:30 WBC 7.1 (4.0-10.5) x10^3/uL RBC 4.74 (4.1-5.4) x10^6/uL Hgb 14.3 (12.0-16.0) g/dL Hct 43.3 (35-47) % MCV 91.4 (78-100) fL MCH 30.2 (26-32) pg MCHC 33.0 (32-36) g/dL RDW 13.9 (11.5-14.0) % Plt Count 242 (150-450) x10^3/uL MPV 9.4 (7.5-11.0) fL Gran % 70.4 H (36.0-66.0) % Immature Gran % (Auto) 0.3 (0.00-0.4) % Nucleat RBC Rel Count 0.0 (0.00-0.1) % Eos # (Auto) 0.21 (0-0.5) x10^3/uL Immature Gran # (Auto) 0.02 (0.00-0.03) x10^3u/L Absolute Lymphs (auto) 1.30 (1.0-4.6) x10^3/uL Absolute Monos (auto) 0.51 (0.0-1.3) x10^3/uL Absolute Nucleated RBC 0.00 (0.00-0.01) x10^3u/L Lymphocytes % 18.3 L (24.0-44.0) % Monocytes % 7.2 (0.0-12.0) % Eosinophils % 3.0 (0.00-5.0) % Basophils % 0.8 (0.0-0.4) % Absolute Granulocytes 5.00 (1.4-6.9) x10^3/uL Basophils # 0.06 (0-0.4) x10^3/uL Sodium 140 (137-145) mmol/L Potassium 4.0 (3.5-5.1) mmol/L Chloride 105 (98-107) mmol/L Carbon Dioxide 26 (22-30) mmol/L Anion Gap 12.9 (5-15) MEQ/L BUN 13 (7-17) mg/dL Creatinine 1.33 H (0.52-1.04) mg/dL Estimated GFR 45.1 ML/MIN Glucose 119 H (74-106) mg/dL Calcium 9.4 (8.4-10.2) mg/dL Magnesium 2.0 (1.6-2.3) mg/dL Total Bilirubin 0.80 (0.2-1.3) mg/dL AST 33 (14-36) U/L ALT 31 (0-35) U/L Alkaline Phosphatase 97 (38-126) U/L Troponin I (0.000-0.034) ng/mL Serum Total Protein 7.5 (6.3-8.2) g/dL Albumin 4.4 (3.5-5.0) g/dL Thyroxine (T4) (5.53-10.96) ug/dL TSH 3rd Generation 1.400 (0.47-4.68) mIU/L Urinalys Dipstick Clnc Urine Color (YELLOW) Urine Appearance (CLEAR) Urine pH (5-6) Ur Specific [place] (1.005-1.025) POC Urine Protein Conf (Negative) Urine Ketones (NEGATIVE) Urine Nitrite (NEGATIVE) Urine Bilirubin (NEGATIVE) Urine Urobilinogen (0-1) mg/dL Urine Leukocytes (NEGATIVE) Urine WBC (Auto) (0-5) /HPF Urine RBC (Auto) (0-2) /HPF U Epithel Cells (Auto) (FEW) /HPF Urine Bacteria (Auto) (NEGATIVE) /HPF Urine RBC (0-5) Damian/ul Urine Mucus (Auto) (NEGATIVE) /HPF Ur Culture Indicated? Urine Glucose (NEGATIVE) mg/dL Ethyl Alcohol < 10 (0-10) mg/dL - Progress Progress: improved Progress Note: 04/03/22 16:36 CAT scan of the head without contrast is a normal study. There is no evidence of any intracranial abnormality. Counseled pt/family regarding: lab results, diagnosis, need for follow-up, rad results - Departure Departure Disposition: Home Clinical Impression: Dizziness Condition: Stable Critical Care Time: No Referrals: GISELLE ALMARAZ MD [Primary Care Provider] - Follow up/PCP as directed Additional Instructions: Drink plenty of fluids. Take your medication as prescribed. Follow-up with you r primary care physician for further evaluation and management
[2022-04-03] MEDS ORDERED: Sodium Chloride 0.9% 1000 ML 1,000 ML IV STA (14:05)
[2022-04-03 14:38] LABS: Bacteria RARE /HPF (NEGATIVE); Epithelial Cells RARE /HPF (FEW); Mucus SLIGHT /HPF (NEGATIVE); WBC 0-2 /HPF (0-5)
[2022-04-03] MEDS ORDERED: Sodium Chloride 0.9% 1000 ML 1,000 ML ONE (14:39)
[2022-04-03 14:41] LABS: Appearance CLEAR (CLEAR); Bilirubin NEGATIVE (NEGATIVE); Dipstick done @ ? MAIN LAB; Glucose NEGATIVE (NEGATIVE); Ketones NEGATIVE (NEGATIVE); Nitrite NEGATIVE (NEGATIVE); Protein,Urine Dip NEGATIVE (Negative); RBC NEGATIVE Ery/ul (0-5); Urobilinogen 0.2 mg/dL (0-1)
[2022-04-03 14:44] LABS: Urine Cultured Indicated? YES
--- NOTE | 2022-04-03 14:57 | XRAY ---
Indication: Headache and dizziness 2 weeks. Multiple contiguous axial images obtained through the head without contrast. Comparison: May 28, 2016. Normal appearing brain parenchyma, ventricles, and bony calvarium. Again anatomic variant for empty sella. Visualized paranasal sinuses and mastoid air cells are clear. Impression: Continued normal CT head without contrast exam.
[2022-04-03 14:58] LABS: ALBUMIN 4.4 g/dL (3.5-5.0); ALKALINE PHOSPHATASE 97 U/L (38-126); ANION GAP 12.9 MEQ/L (5-15); BLOOD UREA NITROGEN 13 mg/dL (7-17); CHLORIDE 105 mmol/L (98-107); Calcium 9.4 mg/dL (8.4-10.2); Carbon Dioxide 26 mmol/L (22-30); Creatinine 1 1.33 mg/dL (0.52-1.04); EST GLOMERULAR FILTRATION RATE 45.1 ML/MIN; ETHYL ALCOHOL < 10 mg/dL (0-10); Glucose 119 mg/dL (74-106); SGOT/AST 33 U/L (14-36); SGPT/ALT 31 U/L (0-35); SODIUM 140 mmol/L (137-145); Total Protein 7.5 g/dL (6.3-8.2)
[2022-04-03 15:04] LABS: Basophil (Absolute #) 0.06 x10^3/uL (0-0.4); Eosinophil (Absolute #) 0.21 x10^3/uL (0-0.5); Hematocrit 43.3 % (35-47); Hemoglobin 14.3 g/dL (12.0-16.0); Lymphocytes % 18.3 % (24.0-44.0); Mean Cell Volume 91.4 fL (78-100); Mean Corpuscular Hemoglobin 30.2 pg (26-32); Mean Platelet Volume 9.4 fL (7.5-11.0); Monocyte (Absolute #) 0.51 x10^3/uL (0.0-1.3); Monocytes % 7.2 % (0.0-12.0); Neutrophil % 70.4 % (36.0-66.0); Platelet Count 242 x10^3/uL (150-450); Red Blood Count 4.74 x10^6/uL (4.1-5.4); Red Cell Distribution Width 13.9 % (11.5-14.0); White Blood Count 7.1 x10^3/uL (4.0-10.5)
[2022-04-03 15:19] VITALS: BP 137/91
[2022-04-03 16:54] VITALS: PULSE 82; O2SAT 98
== END 2022-04-03 16:51 | disposition home or self-care (01) ==
LOC: ED 13:33
DX: R42 Dizziness and giddiness (principal); I10 Essential (primary) hypertension; Z79.899 Other long term (current) drug therapy
CPT/HCPCS: 36000; 36415; 70450; 80053; 81015; 83735; 84436; 84443; 84484; 85025; 87086; 93005; 96360; 99284; G0480; 80307

== ENCOUNTER 2022-09-10 09:49 | Emergency (ER) | payer OTHER ==
[2022-09-10] MEDS ORDERED: Sodium Chloride 0.9% 1000 ML 1,000 ML IV STA (10:10)
[2022-09-10 10:35] LABS: Absolute Neutrophil Ct (ANC) 5.26 x10^3/uL (1.4-6.9); Basophil (Absolute #) 0.06 x10^3/uL (0-0.4); Eosinophil % 1.4 % (0.00-5.0); Eosinophil (Absolute #) 0.11 x10^3/uL (0-0.5); Hematocrit 45.7 % (35-47); Hemoglobin 15.2 g/dL (12.0-16.0); Lymphocyte (Absolute #) 1.78 x10^3/uL (1.0-4.6); Lymphocytes % 23.2 % (24.0-44.0); Mean Cell Volume 91.2 fL (78-100); Mean Corpuscular Hemoglobin 30.3 pg (26-32); Mean Corpuscular Hgb Concent. 33.3 g/dL (32-36); Mean Platelet Volume 9.2 fL (7.5-11.0); Monocyte (Absolute #) 0.44 x10^3/uL (0.0-1.3); Monocytes % 5.7 % (0.0-12.0); Neutrophil % 68.6 % (36.0-66.0); Platelet Count 306 x10^3/uL (150-450); Red Blood Count 5.01 x10^6/uL (4.1-5.4); Red Cell Distribution Width 13.5 % (11.5-14.0); White Blood Count 7.7 x10^3/uL (4.0-10.5)
[2022-09-10 10:42] LABS: Appearance CLEAR (CLEAR); Bilirubin SMALL (NEGATIVE); Dipstick done @ ? MAIN LAB; Glucose NEGATIVE (NEGATIVE); Ketones SMALL-15 (NEGATIVE); Nitrite NEGATIVE (NEGATIVE); Ph 5.5 (5-6); Protein,Urine Dip TRACE (Negative); RBC NEGATIVE Ery/ul (0-5); Urobilinogen 0.2 mg/dL (0-1)
--- NOTE | 2022-09-10 10:42 | ERPHSYRPT ---
- History of Present Illness Time Seen by Provider: 09/10/22 10:36 Historian: patient Exam Limitations: no limitations Patient Subjective Stated Complaint: C/O left sided abdominal pain for the past 5-6 days. Denies N/V. Does c/o loose stools. Triage Nursing Assessment: Patient brought back to ED in a W/C. She is wearing a tank top with the current cool temps outside; patient states she keeps feeling hot. No SOB noted. She is alert and oriented. No increased pain noted with palpation of abdomen. Very hypoactive bowel sounds noted. Physician History: C/O left sided abdominal pain for the past 5-6 days. Denies N/V. Does c/o loose stools. patient states she keeps feeling hot. Timing/Duration: day(s) (5-6 days) Quality: cramping Abdominal Pain Onset Location: LUQ, LLQ Pain Radiation: no radiation Severity of Pain-Max: moderate Severity of Pain-Current: moderate Modifying Factors: Improves With: nothing Associated Symptoms: diarrhea, loss of appetite, nausea Previous symptoms: no prior history Allergies/Adverse Reactions: aspirin Allergy (Intermediate, Verified 09/10/22 10:04) Rash pt states allergic to baby aspirin/orange coating Home Medications: Levothyroxine Sodium 75 Mcg [Synthroid 75 Mcg] 75 mcg PO DAILY 02/29/16 [History] Gabapentin [Neurontin ] 1 ea PO QAM 08/07/21 [History] Tizanidine HCl 1 ea PO BID 08/07/21 [History] buPROPion HCL [Bupropion HCl Sr] 2 ea PO QAM 08/07/21 [History] hydrOXYzine HCL [Hydroxyzine HCl] 4 ea PO BID 08/07/21 [History] Amlodipine/Benzapril 5/10 mg [Lotrel 5/10 MG] 1 cap PO DAILY 04/03/22 [History] Nortriptyline HCl 25 mg PO DAILY 04/03/22 [History] Hx Tetanus, Diphtheria Vaccination/Date Given: Yes Hx Influenza Vaccination/Date Given: No Hx Pneumococcal Vaccination/Date Given: No Immunizations Up to Date: Yes Travel Risk - International Travel Have you traveled outside of the country in past 3 weeks: No - Coronavirus Screening Are you exhibiting any of the following symptoms?: Yes Symptoms: Vomiting/Diarrhea Close contact with a COVID-19 positive Pt in past 14-21 Days: No - Vaccine Status Have you recieved a Covid-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: 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[employer] - Vaccination Dates Date of 2cond Vaccination (if applicable): 04/13/2021 - Review of Systems Constitutional: No Fever, No Chills Eyes: No Symptoms Ears, Nose, & Throat: No Symptoms Respiratory: No Cough, No Dyspnea Cardiac: No Chest Pain, No Edema, No Syncope Abdominal/Gastrointestinal: Abdominal Pain, Nausea, Diarrhea, Appetite Changes, No Vomiting Genitourinary Symptoms: No Dysuria Musculoskeletal: No Back Pain, No Neck Pain Skin: No Rash Neurological: No Dizziness, No Focal Weakness, No Sensory Changes Psychological: No Symptoms Endocrine: No Symptoms All Other Systems: Reviewed and Negative - Past Medical History Pertinent Past Medical History: Yes Neurological History: Migraines ENT History: No Pertinent History Cardiac History: Hypertension Respiratory History: Asthma Endocrine Medical History: Hypothyroidism Musculoskeletal History: Arthritis GI Medical History: GERD, Gallbladder Disease History: No Pertinent History Psycho-Social History: Depression Female Reproductive Disorders: Abnormal Uterine Bleeding Other Medical History: zantac, welbutrin, lthyroxine,allergic to baby aspirin and cholesteral meds, allergic to cinnamon. - Past Surgical History Past Surgical History: Yes Neuro Surgical History: No Pertinent History Cardiac: No Pertinent History Respiratory: No Pertinent History Gastrointestinal: Cholecystectomy Genitourinary: No Pertinent History Musculoskeletal: No Pertinent History Female Surgical History: Section, Hysterectomy, Tubal Ligation Other Surgical History: tonsilectomy - Social History Smoking Status: Never smoker Exposure to second hand smoke: Yes Drug Use: none Patient Lives Alone: No - Nursing Vital Signs Nursing Vital Signs: Initial Vital Signs Temperature 97.8 F 09/10/22 10:05 Pulse Rate 111 H 09/10/22 10:05 Respiratory Rate 20 09/10/22 10:05 Blood Pressure 181/107 09/10/22 10:05 O2 Sat by Pulse Oximetry 97 09/10/22 10:05 Pain Scale Pain Intensity 6 - Physical Exam General Appearance: mild distress Eye Exam: PERRL/EOMI, eyes nml inspection Ears, Nose, Throat Exam: normal ENT inspection, pharynx normal, moist mucous membranes Neck Exam: normal inspection, non-tender, supple, full range of motion Respiratory Exam: normal breath sounds, lungs clear, No respiratory distress Cardiovascular Exam: regular rate/rhythm, normal heart sounds Gastrointestinal/Abdomen Exam: soft, normal bowel sounds, tenderness, No mass Back Exam: normal inspection, normal range of motion, No CVA tenderness, No vertebral tenderness Extremity Exam: normal inspection, normal range of motion, pelvis stable Neurologic Exam: alert, oriented x 3, cooperative, normal mood/affect, nml cerebellar function, sensation nml, No motor deficits Skin Exam: normal color, warm, dry SpO2: 97 - Course Nursing assessment & vital signs reviewed: Yes - CT Exams Abdomen/Pelvis CT Interpretation: Tele-radiologist Report, diverticulitis Ordered Tests: Active Orders 24 hr Category Date Time Status ABDOMEN AND PELVIS W/0 CONTRAS [CT] Stat Exams 09/10/22 11:11 Taken AMYLASE Stat Lab 09/10/22 10:32 Completed CBC W DIFF Stat Lab 09/10/22 10:32 Completed CMP Stat Lab 09/10/22 10:32 Completed LIPASE Stat Lab 09/10/22 10:32 Completed UA W/RFX CULTURE Stat Lab 09/10/22 10:14 Completed Medication Summary Discontinued Medications Generic Name Dose Route Start Last Admin Trade Name Freq PRN Reason Stop Dose Admin Sodium Chloride 1,000 mls @ 999 mls/hr 09/10/22 10:10 09/10/22 11:37 Sodium Chloride 0.9% 1000 Ml IV 09/10/22 11:10 999 mls/hr .Q1H1M STA Administration Sodium Chloride Confirm 09/10/22 11:34 Sodium Chloride 0.9% 1000 Ml Administered 09/10/22 11:35 Dose 1,000 mls @ ud .ROUTE .[facility] ONE Lab/Rad Data: Laboratory Result Diagrams 09/10/22 10:32 09/10/22 10:32 Laboratory Results 09/10/22 09/10/22 09/10/22 Range/Units 10:32 10:32 10:14 WBC 7.7 (4.0-10.5) x10^3/uL RBC 5.01 (4.1-5.4) x10^6/uL Hgb 15.2 (12.0-16.0) g/dL Hct 45.7 (35-47) % MCV 91.2 (78-100) fL MCH 30.3 (26-32) pg MCHC 33.3 (32-36) g/dL RDW 13.5 (11.5-14.0) % Plt Count 306 (150-450) x10^3/uL MPV 9.2 (7.5-11.0) fL Gran % 68.6 H (36.0-66.0) % Immature Gran % (Auto) 0.3 (0.00-0.4) % Nucleat RBC Rel Count 0.0 (0.00-0.1) % Eos # (Auto) 0.11 (0-0.5) x10^3/uL Immature Gran # (Auto) 0.02 (0.00-0.03) x10^3u/L Absolute Lymphs (auto) 1.78 (1.0-4.6) x10^3/uL Absolute Monos (auto) 0.44 (0.0-1.3) x10^3/uL Absolute Nucleated RBC 0.00 (0.00-0.01) x10^3u/L Lymphocytes % 23.2 L (24.0-44.0) % Monocytes % 5.7 (0.0-12.0) % Eosinophils % 1.4 (0.00-5.0) % Basophils % 0.8 (0.0-0.4) % Absolute Granulocytes 5.26 (1.4-6.9) x10^3/uL Basophils # 0.06 (0-0.4) x10^3/uL Sodium 137 (137-145) mmol/L Potassium 4.0 (3.5-5.1) mmol/L Chloride 103 (98-107) mmol/L Carbon Dioxide 22 (22-30) mmol/L Anion Gap 15.6 H (5-15) MEQ/L BUN 15 (7-17) mg/dL Creatinine 1.40 H (0.52-1.04) mg/dL Estimated GFR 42.3 ML/MIN Glucose 152 H (74-106) mg/dL Calcium 9.6 (8.4-10.2) mg/dL Total Bilirubin 0.80 (0.2-1.3) mg/dL AST 21 (14-36) U/L ALT 25 (0-35) U/L Alkaline Phosphatase 111 (38-126) U/L Serum Total Protein 8.0 (6.3-8.2) g/dL Albumin 4.5 (3.5-5.0) g/dL Amylase 64 (30-110) U/L Lipase 86 (23-300) U/L Urinalys Dipstick Clnc MAIN LAB Urine Color YELLOW (YELLOW) Urine Appearance CLEAR (CLEAR) Urine pH 5.5 (5-6) Ur Specific [place] 1.020 (1.005-1.025) POC Urine Protein Conf TRACE A (Negative) Urine Ketones SMALL-15 A (NEGATIVE) Urine Nitrite NEGATIVE (NEGATIVE) Urine Bilirubin SMALL A (NEGATIVE) Urine Urobilinogen 0.2 (0-1) mg/dL Urine Leukocytes NEGATIVE (NEGATIVE) Urine WBC (Auto) 3-5 A (0-5) /HPF Urine RBC (Auto) NONE SEEN (0-2) /HPF U Hyaline Cast (Auto) 11-25 A (0-2) /LPF U Epithel Cells (Auto) RARE (FEW) /HPF Urine Bacteria (Auto) NONE SEEN (NEGATIVE) /HPF Urine RBC NEGATIVE (0-5) Damian/ul Urine Mucus (Auto) MANY A (NEGATIVE) /HPF Ur Culture Indicated? NO Urine Glucose NEGATIVE (NEGATIVE) mg/dL - Progress Progress: improved, pain not gone completely Counseled pt/family regarding: lab results, diagnosis, need for follow-up, rad results - Departure Departure Disposition: Home Clinical Impression: Diverticulitis Qualifiers: Diverticulitis site: large intestine Diverticulitis bleeding: without bleeding Diverticulitis complication: without perforation or abscess Qualified Code(s): K57.32 - Diverticulitis of large intestine without perforation or abscess without bleeding Condition: Stable Critical Care Time: Yes Critical Care Time(excluding separately billable procedures): Critical 30-74 mins Referrals: GISELLE ALMARAZ MD [Primary Care Provider] - Follow up/PCP as directed Instructions: Diverticulitis (DC) Additional Instructions: Discharge/Care Plan SHAUN OSCAR was seen on 09/10/22 in the Emergency Room. The patient was counseled regarding Diagnosis,Lab results, Imaging studies, need for follow up and when to return to the Emergency Room. Prescriptions given: Discharge Note I have spoken with the patient and/or caregivers. I have explained the patient's condition, diagnosis and treatment plan based on the information available to me at this time. I have answered the patient's and/or caregiver's questions and addressed any concerns. The patient and/or caregivers have as good understanding of the patient's diagnosis, condition and treatment plan as can be expected at this point. The vital signs have been stable. The patient's condition is stable and appropriate for discharge from the emergency department. The patient will pursue further outpatient evaluation with the primary care physician or other designated or consulting physician as outlined in the discharge instructions. The patient and/or caregivers are agreeable to this plan of care and follow-up instructions have been explained in detail. The patient and/or caregivers have received these instruction. The patient/and or caregivers are aware that any significant change in condition or worsening of symptoms should prompt an immediate return to this or the closest emergency department or call 911. DAYNESHAUN ORTIZ was seen on 09/10/22 n the Emergency Room. At that time you were treated for an emergent condition, during your visit Laboratory, Radiology and/or other procedures may have been ordered. It is very important that you follow-up with your Primary Care Physician GISELLE ALMARAZ within the next 24-48 hours to review your Emergency Room visit and the final results of testing that was ordered. Some test results such as Urine Cultures, Blood Cultures, and other cultures if ordered will not be finalized for 24-48 hours. If you do not have a Primary Care Provider please call the medical records department at [phone] ext [phone] to obtain a copy of your results or you may sign into our patient portal to obtain these results by visiting us @ [email or web address] and completing the following steps: 1. Click on the Patient Portal link 2. Click the Patient Self Enrollment Link to complete the enrollment form and e ntering your 3. Once the enrollment form is completed you will receive an email with a temporary ID and password at the email address you provided. 4. Next choose a user name and password. Your user name must be at least 4 characters long and your password must be at least 4 characters long. 5. Choose a security question from the list and provide your answer to the question. If you already have signed into the Health Portal you may access your Health Care Information 14/05 by the following steps: 1. Login to our website @ [email or web address] 2. Enter your original user name and password. FAQS The [facility] Health Portal is an online tool that contains your Lab Results, Radiology Reports, Visit History, Discharge Instructions and Health Summary Lab and Radiology Results will not be available for 72 hours on the portal. The Portal is a secure site, passwords are encryted and URLs are re-written so they cannot be copied and pasted. You and authorized family members are the only ones who can access your Portal. Also there is a timeout feature that protects your information if you leave the Portal page open. If you have technical difficulty please use the Contact Us link on the page this will allow you to submit any questions you have regarding the Portal or you may contact the Medical Record Department at [phone] ext [phone]. Prescriptions: Metronidazole 500 mg [Flagyl 500 MG] 500 mg PO TID #21 tablet
[2022-09-10 10:56] LABS: Epithelial Cells RARE /HPF (FEW); Mucus MANY /HPF (NEGATIVE)
[2022-09-10 10:57] LABS: Bacteria NONE SEEN /HPF (NEGATIVE); RBC NONE SEEN /HPF (0-2)
[2022-09-10 10:58] LABS: Urine Cultured Indicated? NO
[2022-09-10 11:02] LABS: ALBUMIN 4.5 g/dL (3.5-5.0); ANION GAP 15.6 MEQ/L (5-15); BILIRUBIN,TOTAL 0.8 mg/dL (0.2-1.3); Calcium 9.6 mg/dL (8.4-10.2); Creatinine 1 1.4 mg/dL (0.52-1.04); EST GLOMERULAR FILTRATION RATE 42.3 ML/MIN
[2022-09-10] MEDS ORDERED: Sodium Chloride 0.9% 1000 ML 1,000 ML ONE (11:34)
[2022-09-10] MEDS ORDERED: FLAGYL 500 MG IVPB 500 MG/100 ML BAG IV STA (12:00)
[2022-09-10] MEDS ORDERED: FLAGYL 500 MG IVPB 500 MG/100 ML BAG IV ONE (12:03)
[2022-09-10 13:58] VITALS: BP 152/80; PULSE 98; O2SAT 100
--- NOTE | 2022-09-10 17:26 | XRAY ---
Indication: Left abdomen pain and diarrhea 5 days. History diverticulitis. Multiple contiguous axial images obtained through the abdomen and pelvis without contrast. Comparison: August 07, 2021 Lung bases again demonstrates right hilar and right middle lobe calcified granulomas. No ventricular effusion. Heart not enlarged. Noncontrasted stomach and bowel loops appear nonobstructed again with normal appendix. There remains mild scattered colonic diverticulosis. Distal descending and proximal sigmoid now demonstrates minimal pericolonic stranding favoring mild diverticulitis. No free fluid/air. Again a few splenic calcified granulomas, cholecystectomy, and hysterectomy. Remaining liver, pancreas, spleen, adrenal glands, kidneys, ureters, bladder, and aorta are unremarkable for noncontrast exam. Osseous structures intact. No ventral or inguinal hernias. Impression: 1. Again scattered colonic diverticulosis with new mild diverticulitis distal descending/proximal sigmoid colon. No Complications. 2. Chronic findings including old granulomatous disease. Comment: Preliminary interpretation made by [facility]. No critical discrepancy.
== END 2022-09-10 13:58 | disposition home or self-care (01) ==
LOC: ED 09:49
DX: K57.32 Diverticulitis of large intestine without perforation or abscess without bleeding (principal); R10.32 Left lower quadrant pain; R10.12 Left upper quadrant pain; I10 Essential (primary) hypertension; Z79.899 Other long term (current) drug therapy
CPT/HCPCS: 36415; 74176; 80053; 81015; 82150; 83690; 85025; 96365; 99284; 99291

== ENCOUNTER 2022-10-07 11:11 | Emergency (ER) | payer OTHER ==
[2022-10-07 11:35] VITALS: O2SAT 98
[2022-10-07] MEDS ORDERED: TORAdol 30 mg Injection IV ONE (11:46)
[2022-10-07] MEDS ORDERED: TORAdol 30 mg Injection ONE (11:53)
[2022-10-07 12:18] LABS: Absolute Neutrophil Ct (ANC) 4.73 x10^3/uL (1.4-6.9); Basophil (Absolute #) 0.05 x10^3/uL (0-0.4); Eosinophil % 1.6 % (0.00-5.0); Eosinophil (Absolute #) 0.11 x10^3/uL (0-0.5); Hematocrit 43.8 % (35-47); Hemoglobin 14.1 g/dL (12.0-16.0); Lymphocyte (Absolute #) 1.42 x10^3/uL (1.0-4.6); Lymphocytes % 21.1 % (24.0-44.0); Mean Cell Volume 94.2 fL (78-100); Mean Corpuscular Hemoglobin 30.3 pg (26-32); Mean Corpuscular Hgb Concent. 32.2 g/dL (32-36); Mean Platelet Volume 9.1 fL (7.5-11.0); Monocyte (Absolute #) 0.41 x10^3/uL (0.0-1.3); Monocytes % 6.1 % (0.0-12.0); Neutrophil % 70.2 % (36.0-66.0); Platelet Count 284 x10^3/uL (150-450); Red Blood Count 4.65 x10^6/uL (4.1-5.4); Red Cell Distribution Width 13.4 % (11.5-14.0); White Blood Count 6.7 x10^3/uL (4.0-10.5)
[2022-10-07 12:35] LABS: ALBUMIN 4.5 g/dL (3.5-5.0); ANION GAP 9.3 MEQ/L (5-15); BILIRUBIN,TOTAL 0.5 mg/dL (0.2-1.3); Calcium 9.4 mg/dL (8.4-10.2); Creatinine 1 1.26 mg/dL (0.52-1.04); EST GLOMERULAR FILTRATION RATE 47.8 ML/MIN; Potassium 4.2 mmol/L (3.5-5.1); Total Protein 7.8 g/dL (6.3-8.2)
--- NOTE | 2022-10-07 13:06 | ERPHSYRPT ---
- History of Present Illness Time Seen by Provider: 10/07/22 11:35 Historian: patient Exam Limitations: no limitations Patient Subjective Stated Complaint: Constipation/abdominal pain Triage Nursing Assessment: Patient brought back to ED per w/c and transferred self to bed. Patient A+O X 3. Patient's skin pink, warm and dry. Patient complains of constipation since Sunday. Patient complains of mid abdominal pain /. Abdomen distended with BS X 4. Physician History: 52 years old female with history of colitis, constipation presented in ER with 5 days history of abdominal pain. Patient reported initially it started in the left side and gradually having pain in the epigastric area moderate intensity dull cramping without any significant aggravating or relieving factors. Patient does take stool softener but does not have any bowel movement for the last 5 days. No nausea or vomiting reported. No fever or chills reported. Timing/Duration: day(s) (5), intermittent, gradual onset, worse Activities at Onset: rest Quality: cramping Abdominal Pain Onset Location: LUQ, LLQ, epigastric Pain Radiation: no radiation Severity of Pain-Max: moderate Severity of Pain-Current: moderate Modifying Factors: Improves With: nothing Associated Symptoms: denies symptoms Previous symptoms: same symptoms as today Allergies/Adverse Reactions: aspirin Allergy (Intermediate, Verified 10/07/22 11:17) Rash pt states allergic to baby aspirin/orange coating Home Medications: Levothyroxine Sodium 75 Mcg [Synthroid 75 Mcg] 75 mcg PO DAILY 02/29/16 [History] Gabapentin [Neurontin ] 1 ea PO QAM 08/07/21 [History] Tizanidine HCl 1 ea PO BID 08/07/21 [History] buPROPion HCL [Bupropion HCl Sr] 2 ea PO QAM 08/07/21 [History] hydrOXYzine HCL [Hydroxyzine HCl] 4 ea PO BID 08/07/21 [History] Amlodipine/Benzapril 5/10 mg [Lotrel 5/10 MG] 1 cap PO DAILY 04/03/22 [History] Nortriptyline HCl 25 mg PO DAILY 04/03/22 [History] Hx Tetanus, Diphtheria Vaccination/Date Given: Yes Hx Influenza Vaccination/Date Given: No Hx Pneumococcal Vaccination/Date Given: No Immunizations Up to Date: Yes Travel Risk - International Travel Have you traveled outside of the country in past 3 weeks: No - Coronavirus Screening Are you exhibiting any of the following symptoms?: No Close contact with a COVID-19 positive Pt in past 14-21 Days: No - Vaccine Status Have you recieved a Covid-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: Yes 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: [employer] - Vaccination Dates Date of 2cond Vaccination (if applicable): 04/13/2021 - Review of Systems Constitutional: No Symptoms Eyes: No Symptoms Ears, Nose, & Throat: No Symptoms Respiratory: No Symptoms Cardiac: No Symptoms Abdominal/Gastrointestinal: Abdominal Pain, Constipation Genitourinary Symptoms: No Symptoms Musculoskeletal: No Symptoms Neurological: No Symptoms Psychological: No Symptoms Endocrine: No Symptoms Hematologic/Lymphatic: No Symptoms Immunological/Allergic: No Symptoms - Past Medical History Pertinent Past Medical History: Yes Neurological History: Migraines ENT History: No Pertinent History Cardiac History: Hypertension Respiratory History: Asthma Endocrine Medical History: Hypothyroidism Musculoskeletal History: Arthritis GI Medical History: GERD, Gallbladder Disease History: No Pertinent History Psycho-Social History: Depression Female Reproductive Disorders: Abnormal Uterine Bleeding Other Medical History: zantac, welbutrin, lthyroxine,allergic to baby aspirin and cholesteral meds, allergic to cinnamon. - Past Surgical History Past Surgical History: Yes Neuro Surgical History: No Pertinent History Cardiac: No Pertinent History Respiratory: No Pertinent History Gastrointestinal: Cholecystectomy Genitourinary: No Pertinent History Musculoskeletal: No Pertinent History Female Surgical History: Section, Hysterectomy, Tubal Ligation Other Surgical History: tonsilectomy - Social History Smoking Status: Never smoker Exposure to second hand smoke: Yes Drug Use: none Patient Lives Alone: No - Nursing Vital Signs Nursing Vital Signs: Initial Vital Signs Temperature 96.6 F 10/07/22 11:18 Pulse Rate 105 H 10/07/22 11:18 Respiratory Rate 18 10/07/22 11:18 Blood Pressure 164/110 10/07/22 11:18 O2 Sat by Pulse Oximetry 98 10/07/22 11:18 Pain Scale Pain Intensity 3 - Physical Exam General Appearance: no apparent distress, alert Eye Exam: PERRL/EOMI Ears, Nose, Throat Exam: normal ENT inspection Neck Exam: normal inspection, non-tender, supple, full range of motion Respiratory Exam: normal breath sounds, lungs clear Cardiovascular Exam: regular rate/rhythm, normal heart sounds Gastrointestinal/Abdomen Exam: soft, normal bowel sounds, tenderness (Epigastrium/left upper quadrant/left lower quadrant) Back Exam: normal inspection, normal range of motion Extremity Exam: normal inspection, normal range of motion Neurologic Exam: alert, oriented x 3, cooperative Skin Exam: normal color SpO2 Interpretation: normal SpO2: 98 O2 Delivery: Room Air Ordered Tests: Active Orders 24 hr Category Date Time Status ABDOMEN AND PELVIS W/0 CONTRAS [CT] Stat Exams 10/07/22 11:45 Taken CBC W DIFF Stat Lab 10/07/22 12:06 Completed CMP Stat Lab 10/07/22 12:06 Completed CULTURE,URINE Stat Lab 10/07/22 13:30 Received LIPASE Stat Lab 10/07/22 12:06 Completed UA W/RFX CULTURE Stat Lab 10/07/22 13:30 Results Medication Summary Discontinued Medications Generic Name Dose Route Start Last Admin Trade Name Freq PRN Reason Stop Dose Admin Ketorolac Tromethamine 30 mg 10/07/22 11:46 10/07/22 12:14 Ketorolac Tromethamine 30 Mg/Ml Inj IV 10/07/22 11:47 30 mg STAT ONE Administration Ketorolac Tromethamine Confirm 10/07/22 11:53 Ketorolac Tromethamine 30 Mg/Ml Inj Administered 10/07/22 11:54 Dose 30 mg .ROUTE .[employer] ONE Lab/Rad Data: Laboratory Result Diagrams 10/07/22 12:06 10/07/22 12:06 Laboratory Results 10/07/22 10/07/22 10/07/22 Range/Units 13:30 12:06 12:06 WBC 6.7 (4.0-10.5) x10^3/uL RBC 4.65 (4.1-5.4) x10^6/uL Hgb 14.1 (12.0-16.0) g/dL Hct 43.8 (35-47) % MCV 94.2 (78-100) fL MCH 30.3 (26-32) pg MCHC 32.2 (32-36) g/dL RDW 13.4 (11.5-14.0) % Plt Count 284 (150-450) x10^3/uL MPV 9.1 (7.5-11.0) fL Gran % 70.2 H (36.0-66.0) % Immature Gran % (Auto) 0.3 (0.00-0.4) % Nucleat RBC Rel Count 0.0 (0.00-0.1) % Eos # (Auto) 0.11 (0-0.5) x10^3/uL Immature Gran # (Auto) 0.02 (0.00-0.03) x10^3u/L Absolute Lymphs (auto) 1.42 (1.0-4.6) x10^3/uL Absolute Monos (auto) 0.41 (0.0-1.3) x10^3/uL Absolute Nucleated RBC 0.00 (0.00-0.01) x10^3u/L Lymphocytes % 21.1 L (24.0-44.0) % Monocytes % 6.1 (0.0-12.0) % Eosinophils % 1.6 (0.00-5.0) % Basophils % 0.7 (0.0-0.4) % Absolute Granulocytes 4.73 (1.4-6.9) x10^3/uL Basophils # 0.05 (0-0.4) x10^3/uL Sodium 137 (137-145) mmol/L Potassium 4.2 (3.5-5.1) mmol/L Chloride 102 (98-107) mmol/L Carbon Dioxide 30 (22-30) mmol/L Anion Gap 9.3 (5-15) MEQ/L BUN 11 (7-17) mg/dL Creatinine 1.26 H (0.52-1.04) mg/dL Estimated GFR 47.8 ML/MIN Glucose 117 H (74-106) mg/dL Calcium 9.4 (8.4-10.2) mg/dL Total Bilirubin 0.50 (0.2-1.3) mg/dL AST 44 H (14-36) U/L ALT 32 (0-35) U/L Alkaline Phosphatase 98 (38-126) U/L Serum Total Protein 7.8 (6.3-8.2) g/dL Albumin 4.5 (3.5-5.0) g/dL Lipase 40 (23-300) U/L Urinalys Dipstick Clnc Pending Urine Color DARK YELLOW (YELLOW) Urine Appearance CLEAR (CLEAR) Urine pH 6.5 (5-6) Ur Specific [place] >=1.030 A (1.005-1.025) POC Urine Protein Conf TRACE A (Negative) Urine Ketones SMALL-15 A (NEGATIVE) Urine Nitrite NEGATIVE (NEGATIVE) Urine Bilirubin SMALL A (NEGATIVE) Urine Urobilinogen 0.2 (0-1) mg/dL Urine Leukocytes SMALL A (NEGATIVE) Urine WBC (Auto) 16-25 A (0-5) /HPF Urine RBC (Auto) 0-2 (0-2) /HPF U Hyaline Cast (Auto) 0-2 (0-2) /LPF U Epithel Cells (Auto) FEW (FEW) /HPF Urine Bacteria (Auto) RARE (NEGATIVE) /HPF Urine RBC NEGATIVE (0-5) Damian/ul Urine Mucus (Auto) SLIGHT A (NEGATIVE) /HPF Ur Culture Indicated? YES Urine Glucose NEGATIVE (NEGATIVE) mg/dL - Progress Progress: improved, re-examined Progress Note: 10/07/22 14:41 52 years old is evaluated for abdominal pain with questionable constipation. She is given Toradol, on reevaluation feeling better. No peritoneal signs. Has normal white count has chronic kidney disease with a stable creatinine of 1.2. Does have some element of UTI and started on Keflex. Obtained CT abdomen pelvis without contrast which showed no obstruction, diverticulosis but no diverticuli. It did show on the right side some exophytic cystic lesion on the right inferior pole of kidney which is increasing in size when compared with the previous CTs. Discussed with patient and recommended outpatient urology follow-up. Recommended MiraLAX, stool softener and outpatient follow-up. Discussed signs symptoms of worsening needing return to ER which she seems understanding Counseled pt/family regarding: lab results, diagnosis, need for follow-up, rad results - Departure Departure Disposition: Home Clinical Impression: Abdominal pain, Renal cyst, Acute UTI Condition: Stable Critical Care Time: No Referrals: GISELLE ALMARAZ MD [Primary Care Provider] - Follow up/PCP as directed (In 2 days for reevaluation) SARAHI PITTS [COURTESY STAFF] - Follow up/PCP as directed (Call for appointment for reevaluation) Instructions: Constipation, Adult (DC), Severe Abdominal Pain, Adult (DC) Additional Instructions: Take Tylenol as needed for pain. Take MiraLAX and stool softener daily. Follow-up with primary care for reevaluation. Also follow-up with urology for evaluation of kidney cyst. Return to ER for intractable pain, vomiting, fever chills etc.
[2022-10-07 13:39] LABS: Bacteria RARE /HPF (NEGATIVE); Epithelial Cells FEW /HPF (FEW); Hyaline Casts 0-2 /LPF (0-2); Mucus SLIGHT /HPF (NEGATIVE); RBC 0-2 /HPF (0-2)
[2022-10-07 13:42] LABS: Appearance CLEAR (CLEAR); Bilirubin SMALL (NEGATIVE); Glucose NEGATIVE (NEGATIVE); Ketones SMALL-15 (NEGATIVE); Nitrite NEGATIVE (NEGATIVE); Ph 6.5 (5-6); Protein,Urine Dip TRACE (Negative); RBC NEGATIVE Ery/ul (0-5); Specific Gravity >=1.030 (1.005-1.025); Urine Cultured Indicated? YES; Urobilinogen 0.2 mg/dL (0-1)
[2022-10-07] MEDS ORDERED: KEFLEX 500 MG PO ONE (14:41)
[2022-10-07] MEDS ORDERED: KEFLEX 500 MG ONE (15:10)
[2022-10-07 15:13] VITALS: BP 168/88; PULSE 86
[2022-10-07 16:32] LABS: Dipstick done @ ? MAIN LAB
--- NOTE | 2022-10-07 19:38 | XRAY ---
Indication: Abdomen pain. Diverticulitis versus constipation. Multiple contiguous axial images obtained through the abdomen and pelvis without contrast. Comparison: September 10, 2022 Lung bases demonstrate stable right middle lobe calcified granuloma. No infiltrate or effusion. Heart not enlarged. Noncontrasted stomach and bowel loops nonobstructed again with normal appendix. There is now mild scattered colonic fecal debris. Again scattered colonic diverticulosis but today no diverticulitis. Stable small right lower renal exophytic cyst, splenic calcified granulomas, cholecystectomy, and hysterectomy. No free fluid/air. Remaining liver, pancreas, spleen, adrenal glands, kidneys, ureters, bladder, and aorta are unremarkable for noncontrast exam. Osseous structures intact. Impression: 1. Mild diffuse fecal stasis. 2. Again colonic diverticulosis, right renal cyst, and old granulomatous disease. 3. Remaining CT abdomen/pelvis without contrast exam is negative. Comment: Preliminary interpretation made by [facility]. No critical discrepancy.
== END 2022-10-07 15:21 | disposition home or self-care (01) ==
LOC: ED 11:11
DX: N39.0 Urinary tract infection, site not specified (principal); N28.1 Cyst of kidney, acquired; R10.13 Epigastric pain; I12.9 Hypertensive chronic kidney disease with stage 1 through stage 4 chronic kidney disease, or unspecified chronic kidney disease; N18.9 Chronic kidney disease, unspecified; Z79.899 Other long term (current) drug therapy
CPT/HCPCS: 36415; 74176; 80053; 81015; 83690; 85025; 87086; 99283; J1885; A9270-GY

== ENCOUNTER 2022-10-30 13:25 | Emergency (ER) | payer OTHER ==
[2022-10-30] MEDS ORDERED: NORCO 5/325 MG PO ONE (14:09)
[2022-10-30] MEDS ORDERED: NORCO 5/325 MG ONE (14:26)
--- NOTE | 2022-10-30 14:29 | XRAY ---
Indication: Pain 2 months. No known injury. Comparison: March 30, 2016 3 view left knee demonstrates new small nonspecific effusion. No other bony, articular, or soft tissue abnormalities.
[2022-10-30 14:33] VITALS: O2SAT 98
--- NOTE | 2022-10-30 14:52 | ERPHSYRPT ---
- History of Present Illness Time Seen by Provider: 10/30/22 14:50 Source: patient Exam Limitations: no limitations Patient Subjective Stated Complaint: L lower leg pain and swelling Triage Nursing Assessment: pt to ED c/o L lower extremity pain and swelling x months. pt states she has been in ED for this in the past and was evaluated for DVT, which was negative at the time. pt was then scheduled to see Dr Baum for f/u, however appt is not until the of this month and she states she can not wait that long. noted swelling in L knee and upper calf. pt rates 10/10 pain that worsens with movement and palpation. ambulates with walker at home, back to ED in WC and up with SBA to bed. pt states he gave her one of his [place] 10 tablets yesterday which somewhat alleviated pain temporarily. Physician History: Patient is a 52-year-old female presents to our ED with left knee swelling. Patient does not have leg swelling. Patient symptoms have been ongoing for approximately 1 month. Patient had a left lower extremity ultrasound performed for the same problem. The study was negative for DVT at that time. Patient states now she is having difficulty flexing her left knee. Patient has a full sensation to her left knee. On physical exam there is an obvious knee effusion. This is patient's complaint. Not leg pain or leg swelling. Patient is resting comfortably. RN reports pain 10 out of 10. However patient is in no apparent distress during examination. Pain worse with palpation to the knee. Pain improved with rest. No trauma. No fever. No history of Lyme. No autoimmune conditions. Patient voices no other complaints or concerns at this time. Portions of this note were created with voice recognition technology. There may be grammatical, spelling, punctuation or sound alike errors Method of Injury: unknown Occurred: other (Several months.) Quality: constant Severity of Pain-Max: moderate Severity of Pain-Current: mild Lower Extremities Pain: knee: left Modifying Factors: Improves With: other (Flexion of the left knee) Associated Symptoms: none (No chest pain or shortness of breath. Negative Homans' sign. No calf pain) Allergies/Adverse Reactions: cinnamon Allergy (Severe, Verified 10/30/22 13:35) Swelling of Tongue and Lips aspirin Allergy (Intermediate, Verified 10/30/22 13:35) Rash pt states allergic to baby aspirin/orange coating Home Medications: Levothyroxine Sodium 75 Mcg [Synthroid 75 Mcg] 75 mcg PO DAILY 02/29/16 [History] Gabapentin [Neurontin ] 1 ea PO QAM 08/07/21 [History] Tizanidine HCl 1 ea PO BID 08/07/21 [History] buPROPion HCL [Bupropion HCl Sr] 2 ea PO QAM 08/07/21 [History] hydrOXYzine HCL [Hydroxyzine HCl] 4 ea PO BID 08/07/21 [History] Amlodipine/Benzapril 5/10 mg [Lotrel 5/10 MG] 1 cap PO DAILY 04/03/22 [History] Nortriptyline HCl 25 mg PO DAILY 04/03/22 [History] Misoprostol [Cytotec] 200 mcg PO HS 10/30/22 [History] Pramipexole Di-HCl [Pramipexole Dihydrochloride] 1 mg PO HS 10/30/22 [History] Hx Tetanus, Diphtheria Vaccination/Date Given: Yes Hx Influenza Vaccination/Date Given: No Hx Pneumococcal Vaccination/Date Given: No Immunizations Up to Date: Yes Travel Risk - International Travel Have you traveled outside of the country in past 3 weeks: No - Coronavirus Screening Are you exhibiting any of the following symptoms?: No Close contact with a COVID-19 positive Pt in past 14-21 Days: No - Vaccine Status Have you recieved a Covid-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: 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[employer] - Vaccination Dates Date of 2cond Vaccination (if applicable): 04/13/2021 - Review of Systems Constitutional: No Symptoms, No Fever, No Chills Eyes: No Symptoms Ears, Nose, & Throat: No Symptoms Respiratory: No Symptoms, No Cough, No Dyspnea Cardiac: No Symptoms, No Chest Pain, No Edema, No Syncope Abdominal/Gastrointestinal: No Symptoms, No Abdominal Pain, No Nausea, No Vomiting, No Diarrhea Genitourinary Symptoms: No Symptoms, No Dysuria Musculoskeletal: No Symptoms, No Back Pain, No Neck Pain Skin: No Symptoms, No Rash Neurological: No Symptoms, No Dizziness, No Focal Weakness, No Sensory Changes Psychological: No Symptoms Endocrine: No Symptoms Hematologic/Lymphatic: No Symptoms Immunological/Allergic: No Symptoms All Other Systems: Reviewed and Negative - Past Medical History Pertinent Past Medical History: Yes Neurological History: Migraines ENT History: No Pertinent History Cardiac History: Hypertension Respiratory History: Asthma Endocrine Medical History: Hypothyroidism Musculoskeletal History: Arthritis GI Medical History: GERD, Gallbladder Disease History: No Pertinent History Psycho-Social History: Depression Female Reproductive Disorders: Abnormal Uterine Bleeding Other Medical History: zantac, welbutrin, lthyroxine,allergic to baby aspirin and cholesteral meds, allergic to cinnamon. - Past Surgical History Past Surgical History: Yes Neuro Surgical History: No Pertinent History Cardiac: No Pertinent History Respiratory: No Pertinent History Gastrointestinal: Cholecystectomy Genitourinary: No Pertinent History Musculoskeletal: No Pertinent History Female Surgical History: Section, Hysterectomy, Tubal Ligation Other Surgical History: tonsilectomy - Social History Smoking Status: Never smoker Exposure to second hand smoke: Yes Drug Use: none Patient Lives Alone: No - Nursing Vital Signs Nursing Vital Signs: Initial Vital Signs Temperature 97.1 F 10/30/22 13:38 Pulse Rate 96 H 10/30/22 13:38 Respiratory Rate 20 10/30/22 13:38 Blood Pressure 159/93 10/30/22 13:38 O2 Sat by Pulse Oximetry 99 10/30/22 13:38 Pain Scale Pain Intensity 9 - Physical Exam General Appearance: no apparent distress, alert Eyes, Ears, Nose, Throat Exam: normal ENT inspection, TMs normal, pharynx normal, moist mucous membranes Neck Exam: normal inspection, non-tender, supple, full range of motion Cardiovascular/Respiratory Exam: chest non-tender, normal breath sounds, regular rate/rhythm, no respiratory distress Gastrointestinal/Abdominal Exam: non-tender, soft, guarding Back Exam: normal inspection, normal range of motion, No vertebral tenderness Hips Exam: bilateral: non-tender, normal inspection, normal range of motion, no evidence of injury Legs Exam: bilateral leg: non-tender, normal inspection, normal range of motion, no evidence of injury Knees Exam: right knee: non-tender, normal inspection, normal range of motion, no evidence of injury, left knee: pain, soft tissue tenderness Ankle Exam: bilateral ankle: non-tender, normal inspection, normal range of motion, no evidence of injury Foot Exam: bilateral foot: non-tender, normal inspection, normal range of motion, no evidence of injury Neuro/Tendon Exam: normal sensation, normal motor functions Mental Status Exam: alert, oriented x 3, cooperative Skin Exam: normal color, warm, dry SpO2 Interpretation: normal SpO2: 98 O2 Delivery: Room Air - Course Nursing assessment & vital signs reviewed: Yes - Radiology Exams Knee X-ray Interpretation: Teleradiologist Report (Left knee effusion) Ordered Tests: Active Orders 24 hr Category Date Time Status KNEE (3 VIEWS) Stat Exams 10/30/22 14:20 Completed Medication Summary Discontinued Medications Generic Name Dose Route Start Last Admin Trade Name Silva PRN Reason Stop Dose Admin Hydrocodone Bitart/Acetaminophen 1 tab 10/30/22 14:09 10/30/22 14:26 Hydrocodone/Apap 5/325 1 Tab Tablet PO 10/30/22 14:10 1 tab STAT ONE Administration Hydrocodone Bitart/Acetaminophen Confirm 10/30/22 14:26 Hydrocodone/Apap 5/325 1 Tab Tablet Administered 10/30/22 14:27 Dose 1 tab .ROUTE [facility] ONE - Progress Progress: improved Progress Note: Patient is a 52-year-old female with chronic left knee swelling. Patient had a DVT work-up for this problem. Ultrasound was negative at that time. Patient's problem is chronic in nature as it has been ongoing for 2 to 3 months. Patient symptoms are mild to moderate in intensity. No associated comorbidities to speak of. I ordered a left knee x-ray. X-ray confirms physical exam findings of knee effusion. Patient also has some decreased range of motion due to this effusion. Negative Homans' sign. The information observed on the x-ray coupled with the physical exam and patient's history was used for medical decision making. There was no review of outside records. Patient giving [place] pill for pain. No consultation during this visit. However patient was referred to the orthopedic clinic for possible arthrocentesis. Plan of care discussed with patient. She agrees to follow-up in the orthopedic clinic tomorrow for further evaluation and treatment. EM level of service was low to moderate. 1 problem observed with low to moderate complexity. The amount and complexity of data reviewed and analyzed was moderate. Risks of complication and/or morbidity/mortality of management of this patient was moderate. No critical care time. 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 Patient voices no other complaints or concerns at this time. Portions of this note were created with voice recognition technology. There may be grammatical, spelling, punctuation or sound alike errors Counseled pt/family regarding: diagnosis, need for follow-up, rad results - Departure Departure Disposition: Home Clinical Impression: Knee effusion, left Condition: Stable Critical Care Time: No Referrals: GISELLE ALMARAZ MD [Primary Care Provider] - Follow up/PCP as directed Additional Instructions: Discharge/Care Plan SHAUN OSCAR was seen on 10/30/22 in the Emergency Room. The patient was counseled regarding Diagnosis,Lab results, Imaging studies, need for follow up and when to return to the Emergency Room. Prescriptions given: Discharge Note I have spoken with the patient and/or caregivers. I have explained the patient's condition, diagnosis and treatment plan based on the information available to me at this time. I have answered the patient's and/or caregiver's questions and addressed any concerns. The patient and/or caregivers have as good understanding of the patient's diagnosis, condition and treatment plan as can be expected at this point. The vital signs have been stable. The patient's condition is stable and appropriate for discharge from the emergency department. The patient will pursue further outpatient evaluation with the primary care physician or other designated or consulting physician as outlined in the discharge instructions. The patient and/or caregivers are agreeable to this plan of care and follow-up instructions have been explained in detail. The patient and/or caregivers have received these instruction. The patient/and or caregivers are aware that any significant change in condition or worsening of symptoms should prompt an immediate return to this or the closest emergency department or call 911. Outpatient Orders: Ortho Referral Time Frame: 1 Day, Facility: [facility], Location: ORTHO CLINIC
[2022-10-30 15:06] VITALS: BP 118/98; PULSE 88
== END 2022-10-30 15:20 | disposition home or self-care (01) ==
LOC: ED 13:25
DX: M25.462 Effusion, left knee (principal); M25.562 Pain in left knee; I10 Essential (primary) hypertension; Z79.899 Other long term (current) drug therapy
CPT/HCPCS: 73562; 99283; A9270-GY

== ENCOUNTER 2024-04-28 15:28 | Emergency (ER) | payer OTHER ==
[2024-04-28 16:26] VITALS: TEMP 97.6
--- NOTE | 2024-04-28 16:44 | ERPHSYRPT ---
- History of Present Illness Time Seen by Provider: 04/28/24 16:44 Source: patient Exam Limitations: no limitations Patient Subjective Stated Complaint: C/O Covid. Patient states that she hasn't been feeling well since , 04/24/24. She has been tired, hoarse, SOB at times with a headache. Took a home COVID test today and it was positive. Triage Nursing Assessment: Patient ambulated back to ER wearing a mask. She is alert and oriented. No SOB noted at this time. No cough at this time. She is hoarse. Skin tone normal. Physician History: This is a morbidly obese 53-year-old white female patient of Dr. Almaraz who presents with 4-day history of bodyaches, headache, cough and sore throat. She has no chest pain. She occasionally has shortness of breath with coughing spells. Her room air oxygen saturation level is 98%. 3 members of her family, including the patient, have tested positive for COVID-19 infection. Patient took a home test today and it was positive. Patient has history of gastroesophageal reflux disease, anxiety, depression, hyperlipidemia and hypertension. She denies abdominal pain. She has not had nausea vomiting or diarrhea. Timing/Duration: day(s) (4) Cough Quality/Degree: mild, dry cough Possible Cause: no prior episodes Modifying Factors: Improves With: coughing Associated Symptoms: cough, headache, muscle aches, sore throat, No chest pain/soreness Allergies/Adverse Reactions: cinnamon Allergy (Severe, Verified 04/28/24 16:13) Swelling of Tongue and Lips aspirin Allergy (Intermediate, Verified 04/28/24 16:13) Rash pt states allergic to baby aspirin/orange coating Home Medications: Levothyroxine Sodium 75 Mcg [Synthroid 75 Mcg] 75 mcg PO DAILY 02/29/16 [History] Gabapentin [Neurontin ] 600 mg PO BID 08/07/21 [History] hydrOXYzine HCL [Hydroxyzine HCl] 25 mg PO QID 08/07/21 [History] Nortriptyline HCl 25 mg PO DAILY 04/03/22 [History] Citalopram Hydrobromide [Celexa] 1 tab PO DAILY 05/11/23 [History] Amlodipine Besylate/Benazepril [Amlodipine-Benazepril 5-20 mg] 1 tab PO DAILY 04/28/24 [History] Propranolol HCl 20 mg PO HS 04/28/24 [History] Simvastatin 5 mg PO HS 04/28/24 [History] Hx Tetanus, Diphtheria Vaccination/Date Given: Yes Hx Influenza Vaccination/Date Given: No Hx Pneumococcal Vaccination/Date Given: No Immunizations Up to Date: Yes Travel Risk - International Travel Have you traveled outside of the country in past 3 weeks: No - Emerging Infectious Disease Are you exhibiting symptoms associated with any current EIDs: Yes Symptoms: Headaches/Body Aches/ - Review of Systems Constitutional: No Symptoms Eyes: No Symptoms Ears, Nose, & Throat: No Symptoms Respiratory: Cough Cardiac: No Symptoms, No Chest Pain Abdominal/Gastrointestinal: No Symptoms Genitourinary Symptoms: No Symptoms Musculoskeletal: Arthralgias, Myalgias Skin: No Symptoms Neurological: No Symptoms Psychological: No Symptoms Endocrine: No Symptoms Hematologic/Lymphatic: No Symptoms Immunological/Allergic: No Symptoms All Other Systems: Reviewed and Negative - Past Medical History Pertinent Past Medical History: Yes Neurological History: Migraines ENT History: No Pertinent History Cardiac History: High Cholesterol, Hypertension Respiratory History: Asthma Endocrine Medical History: Hypothyroidism Musculoskeletal History: Arthritis GI Medical History: GERD, Gallbladder Disease History: No Pertinent History Psycho-Social History: Depression Female Reproductive Disorders: Abnormal Uterine Bleeding Other Medical History: zantac, welbutrin, lthyroxine,allergic to baby aspirin and cholesteral meds, allergic to cinnamon. - Past Surgical History Past Surgical History: Yes Neuro Surgical History: No Pertinent History Cardiac: No Pertinent History Respiratory: No Pertinent History Gastrointestinal: Cholecystectomy Genitourinary: No Pertinent History Musculoskeletal: No Pertinent History Female Surgical History: Section, Hysterectomy, Tubal Ligation Other Surgical History: miniscus tear repair - Female History Hx Last Menstrual Period: nov 2013 Hx Now: No (hysterectomy) - Social History Smoking Status: Never smoker Exposure to second hand smoke: Yes Drug Use: none Patient Lives Alone: No - Social Determinants of Health Will the patient participate in the screening: Yes Do you worry about a steady place to live?: No Do you have any problems with any of the following?: No known problems In the past 12 months,have you had to go without utilities?: No Transportation Issues: No Has anyone in your support network made you feel unsafe?: No Have you or anyone in your house had to go without enough: No - Nursing Vital Signs Nursing Vital Signs: Initial Vital Signs Pulse Rate 98 H 04/28/24 16:11 Respiratory Rate 21 04/28/24 16:11 Blood Pressure 145/105 04/28/24 16:11 O2 Sat by Pulse Oximetry 95 04/28/24 16:11 Pain Scale Pain Intensity 8 - Physical Exam General Appearance: no apparent distress, alert, anxiety Eye Exam: PERRL/EOMI, eyes nml inspection Ears, Nose, Throat Exam: normal ENT inspection, moist mucous membranes Neck Exam: normal inspection, non-tender, supple, full range of motion Respiratory Exam: normal breath sounds, lungs clear, airway intact, No chest tenderness, No respiratory distress Cardiovascular Exam: regular rate/rhythm, normal heart sounds, normal peripheral pulses Gastrointestinal/Abdomen Exam: soft, normal bowel sounds, No tenderness Pelvic Exam: not done Rectal Exam: not done Back Exam: normal inspection, normal range of motion, No CVA tenderness, No vertebral tenderness Extremity Exam: normal inspection, normal range of motion, pelvis stable Neurologic Exam: alert, oriented x 3, cooperative, special order jeweler II-XII nml as tested, normal mood/affect, nml cerebellar function, nml station & gait, sensation nml Skin Exam: normal color, warm, dry Lymphatic Exam: No adenopathy SpO2 Interpretation: normal SpO2: 94 O2 Delivery: Room Air - Course Nursing assessment & vital signs reviewed: Yes Ordered Tests: Active Orders 24 hr Category Date Time Status IV Insertion STAT Care 04/28/24 16:44 Active Pulse Oximetry (ED) STAT Care 04/28/24 16:44 Active CHEST 1 VIEW (PORTABLE) Stat Exams 04/28/24 16:45 Completed BLOOD CULTURE Stat Lab 04/28/24 17:32 Received CBC W DIFF Stat Lab 04/28/24 17:32 Completed CMP Stat Lab 04/28/24 17:32 Completed Lactic Acid Stat Lab 04/28/24 17:25 Completed MONO SCREEN Stat Lab 04/28/24 17:32 Completed Medication Summary Discontinued Medications Generic Name Dose Route Start Last Admin Trade Name Freq PRN Reason Stop Dose Admin Hydrocodone Bitart/Acetaminophen 10 ml 04/28/24 17:41 04/28/24 17:48 Hydrocodone/Acetaminophen 5 Ml Udcup PO 04/28/24 17:42 10 ml STAT STA Administration Hydrocodone Bitart/Acetaminophen Confirm 04/28/24 17:47 Hydrocodone/Acetaminophen 5 Ml Udcup Administered 04/28/24 17:48 Dose 10 ml .ROUTE .STK-MED ONE Sodium Chloride 1,000 mls @ 999 mls/hr 04/28/24 16:44 04/28/24 17:58 Sodium Chloride 0.9% 1000 Ml IV 04/28/24 17:44 Infused .Q1H1M STA Infusion Sodium Chloride Confirm 04/28/24 16:56 Sodium Chloride 0.9% 1000 Ml Administered 04/28/24 16:57 Dose 1,000 mls @ ud .ROUTE .STK-MED ONE Lab/Rad Data: Laboratory Result Diagrams 04/28/24 17:32 04/28/24 17:32 Laboratory Results 04/28/24 04/28/24 04/28/24 Range/Units 17:32 17:32 17:32 WBC (3.98-10.04) x10^3/uL RBC (3.93-5.22) x10^6/uL Hgb (11.2-15.7) g/dL Hct (34.1-44.9) % MCV (79.4-94.8) fL MCH (25.6-32.2) pg MCHC (32.2-35.5) g/dL RDW (11.7-14.4) % Plt Count (182-369) x10^3/uL MPV (9.4-12.3) fL Gran % (34.0-71.1) % Immature Gran % (Auto) (0.001-0.429) % Nucleat RBC Rel Count (0.00-0.2) % Eos # (Auto) (0.04-0.36) x10^3/uL Immature Gran # (Auto) (0.001-0.031) x10^3u/L Absolute Lymphs (auto) (1.18-3.74) x10^3/uL Absolute Monos (auto) (0.24-0.86) x10^3/uL Absolute Nucleated RBC (0.00-0.012) x10^3u/L Lymphocytes % (19.3-51.7) % Monocytes % (4.7-12.5) % Eosinophils % (0.7-5.8) % Basophils % (0.1-1.2) % Absolute Granulocytes (1.56-6.13) x10^3/uL Basophils # (0.01-0.08) x10^3/uL Sodium (135-145) mmol/L Potassium (3.5-5.1) mmol/L Chloride (98-107) mmol/L Carbon Dioxide (22-30) mmol/L Anion Gap (5-15) MEQ/L BUN (7-17) mg/dL Creatinine (0.52-1.04) mg/dL Estimated GFR ML/MIN Glucose (74-106) mg/dL Lactic Acid (0.4-2.0) Calcium (8.4-10.2) mg/dL Total Bilirubin (0.2-1.3) mg/dL AST (14-36) U/L ALT (0-35) U/L Alkaline Phosphatase (38-126) U/L Serum Total Protein (6.3-8.2) g/dL Albumin (3.5-5.0) g/dL Monoscreen NEGATIVE (NEGATIVE) Influenza Type A Ag NEGATIVE (NEGATIVE) Influenza Type B Ag NEGATIVE (NEGATIVE) RSV (PCR) NEGATIVE (NEGATIVE) SARS-CoV-2 (PCR) POSITIVE A (NEGATIVE) Group A Strep Antibody NOT DETECTED (NEGATIVE) 04/28/24 04/28/24 04/28/24 Range/Units 17:32 17:32 17:25 WBC 3.8 L (3.98-10.04) x10^3/uL RBC 4.67 (3.93-5.22) x10^6/uL Hgb 14.3 (11.2-15.7) g/dL Hct 44.5 (34.1-44.9) % MCV 95.3 H (79.4-94.8) fL MCH 30.6 (25.6-32.2) pg MCHC 32.1 L (32.2-35.5) g/dL RDW 13.5 (11.7-14.4) % Plt Count 163 L (182-369) x10^3/uL MPV 9.8 (9.4-12.3) fL Gran % 63.3 (34.0-71.1) % Immature Gran % (Auto) 0.3 (0.001-0.429) % Nucleat RBC Rel Count 0.0 (0.00-0.2) % Eos # (Auto) 0.01 L (0.04-0.36) x10^3/uL Immature Gran # (Auto) 0.01 (0.001-0.031) x10^3u/L Absolute Lymphs (auto) 0.81 L (1.18-3.74) x10^3/uL Absolute Monos (auto) 0.51 (0.24-0.86) x10^3/uL Absolute Nucleated RBC 0.00 (0.00-0.012) x10^3u/L Lymphocytes % 21.5 (19.3-51.7) % Monocytes % 13.5 H (4.7-12.5) % Eosinophils % 0.3 L (0.7-5.8) % Basophils % 1.1 (0.1-1.2) % Absolute Granulocytes 2.39 (1.56-6.13) x10^3/uL Basophils # 0.04 (0.01-0.08) x10^3/uL Sodium 136 (135-145) mmol/L Potassium 3.5 (3.5-5.1) mmol/L Chloride 107 (98-107) mmol/L Carbon Dioxide 19 L (22-30) mmol/L Anion Gap 14.3 (5-15) MEQ/L BUN 13 (7-17) mg/dL Creatinine 1.09 H (0.52-1.04) mg/dL Estimated GFR 61.5 ML/MIN Glucose 141 H (74-106) mg/dL Lactic Acid 1.8 (0.4-2.0) Calcium 8.8 (8.4-10.2) mg/dL Total Bilirubin 0.50 (0.2-1.3) mg/dL AST 79 H (14-36) U/L ALT 126 H (0-35) U/L Alkaline Phosphatase 177 H (38-126) U/L Serum Total Protein 6.5 (6.3-8.2) g/dL Albumin 3.6 (3.5-5.0) g/dL Monoscreen (NEGATIVE) Influenza Type A Ag (NEGATIVE) Influenza Type B Ag (NEGATIVE) RSV (PCR) (NEGATIVE) SARS-CoV-2 (PCR) (NEGATIVE) Group A Strep Antibody (NEGATIVE) - Progress Progress: improved, re-examined Air Movement: good Progress Note: 04/28/24 17:54 My medical decision making and the assignment of moderate complexity to this patient's medical issue today is based on review of the patient's past medical history, review of the patient's medication list, review of patient drug allergy list, history present illness and physical findings on examination. The workup in this patient includes placement of intravenous line, infusion of normal saline solution, CBC, CMP, chest x-ray, monotest, strep test and viral studies. Differential diagnosis includes but is not limited to viral illness, pneumonia, strep pharyngitis. 04/28/24 17:55 Chest x-ray was interpreted by the radiologist. I reviewed the impression. The impression states under inflated chest x-ray without acute findings. 04/28/24 18:21 I interpreted the patient's laboratory data results. The patient tested positive for COVID-19 infection. The remainder of her studies did not show any acute, emergent issue. Blood Culture(s) Obtained: Yes Counseled pt/family regarding: lab results, diagnosis, need for follow-up, rad results Medical Desision Making - Independent Historian Additional History obtained from: Family - Diagnostic Testing Diagnostic test were ordered, analyzed, and reviewed by me: Yes Radiological Interpretation: Reviewed by me, Teleradiologist Report - Risk of complications The pt has a mod risk of morbidity or mortality based on: Need for prescription drug management - Departure Departure Disposition: Home Clinical Impression: COVID-19 virus infection Condition: Stable Critical Care Time: No Referrals: GISELLE ALMARAZ MD [Primary Care Provider] - Follow up/PCP as directed Additional Instructions: Drink plenty of fluids. Avoid exposure to any type of smoke. Take your pr escriptions as prescribed. Prescriptions: Prednisone 10 mg [Deltasone 10 mg] 10 mg PO TID #12 tablet Hydrocodone/Acetaminophen [Hydrocodone-Acetamn 7.5-325/15] 10 ml PO Q8H PRN #120 ml MDD 30 ml PRN Reason: Cough
[2024-04-28] MEDS ORDERED: Sodium Chloride 0.9% 1000 ML 1,000 ML ONE (16:56)
[2024-04-28] MEDS: Sodium Chloride 0.9% 1000 ML 1,000 ML IV STA (16:57)
--- NOTE | 2024-04-28 17:13 | XRAY ---
Indication: Cough. Comparison: April 29, 2020 Portable chest is now moderately underinflated and remains clear again with incidental right base calcified granuloma. Heart not enlarged. Bony thorax intact. Impression: Nonacute underinflated chest with incidental old granulomatous disease.
[2024-04-28 17:33] LABS: Absolute Neutrophil Ct (ANC) 2.39 x10^3/uL (1.56-6.13); BASOPHIL % 1.1 % (0.1-1.2); Basophil (Absolute #) 0.04 x10^3/uL (0.01-0.08); Eosinophil % 0.3 % (0.7-5.8); Eosinophil (Absolute #) 0.01 x10^3/uL (0.04-0.36); Hematocrit 44.5 % (34.1-44.9); Hemoglobin 14.3 g/dL (11.2-15.7); IMMATURE GRAN # 0.01 x10^3u/L (0.001-0.031); IMMATURE GRAN % 0.3 % (0.001-0.429); Lymphocyte (Absolute #) 0.81 x10^3/uL (1.18-3.74); Lymphocytes % 21.5 % (19.3-51.7); Mean Cell Volume 95.3 fL (79.4-94.8); Mean Corpuscular Hemoglobin 30.6 pg (25.6-32.2); Mean Corpuscular Hgb Concent. 32.1 g/dL (32.2-35.5); Mean Platelet Volume 9.8 fL (9.4-12.3); Monocyte (Absolute #) 0.51 x10^3/uL (0.24-0.86); Monocytes % 13.5 % (4.7-12.5); Neutrophil % 63.3 % (34.0-71.1); Platelet Count 163 x10^3/uL (182-369); Red Blood Count 4.67 x10^6/uL (3.93-5.22); Red Cell Distribution Width 13.5 % (11.7-14.4); White Blood Count 3.8 x10^3/uL (3.98-10.04)
[2024-04-28] MEDS ORDERED: HYDROCODONE-ACETAMIN 2.5-108/5 ML SOLUTION ONE (17:47)
[2024-04-28] MEDS: HYDROCODONE-ACETAMIN 2.5-108/5 ML SOLUTION PO STA (17:48)
[2024-04-28 17:49] LABS: ALBUMIN 3.6 g/dL (3.5-5.0); ANION GAP 14.3 MEQ/L (5-15); BILIRUBIN,TOTAL 0.5 mg/dL (0.2-1.3); Calcium 8.8 mg/dL (8.4-10.2); Creatinine 1 1.09 mg/dL (0.52-1.04); EST GLOMERULAR FILTRATION RATE 61.5 ML/MIN; Potassium 3.5 mmol/L (3.5-5.1); Total Protein 6.5 g/dL (6.3-8.2)
[2024-04-28 18:10] LABS: INFLUENZA A NEGATIVE (NEGATIVE); INFLUENZA B NEGATIVE (NEGATIVE); RESPIRATORY SYNCTIAL VIRUS NEGATIVE (NEGATIVE)
[2024-04-28 18:13] LABS: SARS-CoV-2 Xpert Express POSITIVE (NEGATIVE)
[2024-04-28 18:34] VITALS: BP 103/87; PULSE 97; RESP 22; O2SAT 96
== END 2024-04-28 18:40 | disposition home or self-care (01) ==
LOC: ED 15:28
DX: U07.1 COVID-19 (principal); M79.10 Myalgia, unspecified site; R51.9 Headache, unspecified; R05.1 Acute cough; J02.9 Acute pharyngitis, unspecified; R06.02 Shortness of breath; E78.5 Hyperlipidemia, unspecified; I10 Essential (primary) hypertension; Z79.52 Long term (current) use of systemic steroids; Z79.891 Long term (current) use of opiate analgesic; Z79.899 Other long term (current) drug therapy
CPT/HCPCS: 0241U; 36000; 36415; 71045; 80053; 83605; 85025; 86308; 87040; 87651; 94760; 99284; A9270-GY

== ENCOUNTER 2024-08-01 11:51 | Emergency (ER) | payer OTHER ==
[2024-08-01 12:00] VITALS: TEMP 97.4
[2024-08-01] MEDS ORDERED: Sodium Chloride 0.9% 1000 ML 1,000 ML ONE (12:32)
--- NOTE | 2024-08-01 12:32 | ERPHSYRPT ---
- History of Present Illness Time Seen by Provider: 08/01/24 12:05 Source: patient Exam Limitations: no limitations Patient Subjective Stated Complaint: pt here for sob today. she staates she feels like she is wheezing. pt had a total knee replaced to left leg on sunday, Triage Nursing Assessment: pt alert arrived per wc, resp easy, skin w/d/p, chest clear, abd soft, has swelling to entire left leg including foot, no redness noted, has bandage to left knee, no drainage, strong pedal pulse. Physician History: This is a morbidly obese 53-year-old white female patient of Dr. Almaraz who is 4 days out from a left knee replacement. She is on Xarelto. She has a history of hypertension, gastroesophageal reflux disease and hypothyroidism. This morning, patient woke up and was significantly more short of breath than usual for her. She also felt that she might be wheezing. Patient is morbidly obese, is in the post operative., And has decreased activity and mobility. She has associated shortness of breath. She does not complain of chest pain. She has swelling in her left lower extremity. She denies abdominal pain. She denies cough. Timing/Duration: today Activities at Onset: none Severity of Dyspnea-Max: moderate Severity of Dyspnea-Current: moderate Possible Cause: no prior episodes Associated Symptoms: wheezing, ankle swelling, No cough, No chest pain/discomfort, No hemoptysis Allergies/Adverse Reactions: cinnamon Allergy (Severe, Verified 08/01/24 11:53) Swelling of Tongue and Lips aspirin Allergy (Intermediate, Verified 08/01/24 11:53) Rash pt states allergic to baby aspirin/orange coating Home Medications: Levothyroxine Sodium 75 Mcg [Synthroid 75 Mcg] 75 mcg PO DAILY 02/29/16 [History] Gabapentin [Neurontin ] 600 mg PO BID 08/07/21 [History] hydrOXYzine HCL [Hydroxyzine HCl] 25 mg PO QID 08/07/21 [History] Nortriptyline HCl 25 mg PO DAILY 04/03/22 [History] Citalopram Hydrobromide [Celexa] 1 tab PO DAILY 05/11/23 [History] Amlodipine Besylate/Benazepril [Amlodipine-Benazepril 5-20 mg] 1 tab PO DAILY 04/28/24 [History] Propranolol HCl 20 mg PO HS 04/28/24 [History] Simvastatin 5 mg PO HS 04/28/24 [History] Oxycodone / APAP 10/325 mg [Oxycodone-Acetaminophen 10-325] 1 each PO QID 08/01/24 [History] Rivaroxaban 10 mg Tablet [Xarelto 10 mg Tablet] 1 ea DAILY 08/01/24 [History] Hx Tetanus, Diphtheria Vaccination/Date Given: No Hx Influenza Vaccination/Date Given: No Hx Pneumococcal Vaccination/Date Given: No Immunizations Up to Date: Yes Travel Risk - International Travel Have you traveled outside of the country in past 3 weeks: No - Emerging Infectious Disease Are you exhibiting symptoms associated with any current EIDs: No Symptoms: Headaches/Body Aches/ - Review of Systems Constitutional: No Symptoms Eyes: No Symptoms Ears, Nose, & Throat: No Symptoms Respiratory: Dyspnea, Wheezing Cardiac: No Symptoms Abdominal/Gastrointestinal: No Symptoms Genitourinary Symptoms: No Symptoms Musculoskeletal: No Symptoms Skin: No Symptoms Neurological: No Symptoms Psychological: No Symptoms Endocrine: No Symptoms Hematologic/Lymphatic: No Symptoms Immunological/Allergic: No Symptoms All Other Systems: Reviewed and Negative - Past Medical History Pertinent Past Medical History: Yes Neurological History: Migraines ENT History: No Pertinent History Cardiac History: High Cholesterol, Hypertension Respiratory History: No Pertinent History Endocrine Medical History: Hypothyroidism Musculoskeletal History: Osteoarthritis GI Medical History: GERD, Gallbladder Disease History: No Pertinent History Psycho-Social History: Depression Female Reproductive Disorders: Abnormal Uterine Bleeding Other Medical History: SX HX: , HYSTERECTOMY, CHOLECYSTECTOMY - Past Surgical History Past Surgical History: Yes Neuro Surgical History: No Pertinent History Cardiac: No Pertinent History Respiratory: No Pertinent History Gastrointestinal: Cholecystectomy Genitourinary: No Pertinent History Musculoskeletal: No Pertinent History, Orthopedic Surgery Female Surgical History: Section, Hysterectomy, Tubal Ligation Other Surgical History: miniscus tear repair,left knee - Female History Hx Last Menstrual Period: hyster - Social History Smoking Status: Never smoker Exposure to second hand smoke: Yes Drug Use: none Patient Lives Alone: No - Social Determinants of Health Will the patient participate in the screening: Yes Do you worry about a steady place to live?: No Do you have any problems with any of the following?: No known problems In the past 12 months,have you had to go without utilities?: No Transportation Issues: No Has anyone in your support network made you feel unsafe?: No Have you or anyone in your house had to go without enough: No - Nursing Vital Signs Nursing Vital Signs: Initial Vital Signs Respiratory Rate 22 08/01/24 11:58 O2 Sat by Pulse Oximetry 97 08/01/24 11:58 Pain Scale Pain Intensity 8 - Physical Exam General Appearance: no apparent distress, alert, anxiety, obese Eye Exam: PERRL/EOMI, eyes nml inspection Ears, Nose, Throat Exam: hearing grossly normal, normal ENT inspection, normal pharynx Neck Exam: normal inspection, non-tender, supple, full range of motion Respiratory Exam: normal breath sounds, lungs clear, airway intact, No chest tenderness, No respiratory distress Cardiovascular/Chest Exam: normal heart sounds, regular rate/rhythm Abdominal/Gastrointestinal Exam: soft, normal bowel sounds, No tenderness Rectal Exam: not done Extremity Exam: non-tender, normal range of motion, normal inspection, normal capillary refill, no calf tenderness, no pedal edema, pelvis stable Neurologic Exam: alert, oriented x 3, cooperative, mail technician II-XII nml as tested, sensation nml Skin Exam: other (Left lower extremity postop dressing clean dry and intact) Lymphatic Exam: No adenopathy SpO2 Interpretation: normal SpO2: 99 O2 Delivery: Room Air - Course Nursing assessment & vital signs reviewed: Yes EKG Interpreted by Me: RATE (98), Sinus Rhythm, NORMAL AXIS, NORMAL INTERVALS, NORMAL QRS, Other (No acute ischemic changes on today's twelve-lead EKG. QTc is 447.) Ordered Tests: Active Orders 24 hr Category Date Time Status EKG-ER Only STAT Care 08/01/24 11:59 Active IV Insertion STAT Care 08/01/24 11:59 Active CHEST WITH CONTRAST [CT] Stat Exams 08/01/24 12:01 Completed VENOUS UNILAT/LIMITED EXTREMIT [US] Stat Exams 08/01/24 12:01 Completed CBC W DIFF Stat Lab 08/01/24 12:20 Completed CMP Stat Lab 08/01/24 12:20 Completed NT PRO BNPII Stat Lab 08/01/24 12:20 Completed PROTIME WITH INR Stat Lab 08/01/24 12:20 Completed TROPONIN Q4H Lab 08/01/24 12:20 Completed TROPONIN Q4H Lab 08/01/24 16:00 Ordered TROPONIN Q4H Lab 08/01/24 20:00 Ordered Medication Summary Generic Name Dose Route Start Last Admin Trade Name Silva PRN Reason Stop Dose Admin Sodium Chloride 1,000 mls @ 100 mls/hr 08/01/24 12:00 08/01/24 12:35 Sodium Chloride 0.9% 1000 Ml IV 08/31/24 11:59 100 mls/hr .Q10H UMER Administration Discontinued Medications Generic Name Dose Route Start Last Admin Trade Name Silva PRN Reason Stop Dose Admin Morphine Sulfate 4 mg 08/01/24 14:39 08/01/24 14:46 Morphine Sulfate 4 Mg/Ml Injection IV 08/01/24 14:40 4 mg STAT ONE Administration Morphine Sulfate Confirm 08/01/24 14:43 Morphine Sulfate 4 Mg/Ml Injection Administered 08/01/24 14:44 Dose 4 mg .ROUTE .STK-MED ONE Ondansetron HCl 4 mg 08/01/24 14:39 08/01/24 14:46 Ondansetron Hcl 4 Mg/2 Ml Vial IV 08/01/24 14:40 4 mg STAT ONE Administration Ondansetron HCl Confirm 08/01/24 14:43 Ondansetron Hcl 4 Mg/2 Ml Vial Administered 08/01/24 14:44 Dose 4 mg .ROUTE .STK-MED ONE Lab/Rad Data: Laboratory Result Diagrams 08/01/24 12:20 08/01/24 12:20 Laboratory Results 08/01/24 08/01/24 08/01/24 Range/Units 12:20 12:20 12:20 WBC (3.98-10.04) x10^3/uL RBC (3.93-5.22) x10^6/uL Hgb (11.2-15.7) g/dL Hct (34.1-44.9) % MCV (79.4-94.8) fL MCH (25.6-32.2) pg MCHC (32.2-35.5) g/dL RDW (11.7-14.4) % Plt Count (182-369) x10^3/uL MPV (9.4-12.3) fL Gran % (34.0-71.1) % Immature Gran % (Auto) (0.001-0.429) % Nucleat RBC Rel Count (0.00-0.2) % Eos # (Auto) (0.04-0.36) x10^3/uL Immature Gran # (Auto) (0.001-0.031) x10^3u/L Absolute Lymphs (auto) (1.18-3.74) x10^3/uL Absolute Monos (auto) (0.24-0.86) x10^3/uL Absolute Nucleated RBC (0.00-0.012) x10^3u/L Lymphocytes % (19.3-51.7) % Monocytes % (4.7-12.5) % Eosinophils % (0.7-5.8) % Basophils % (0.1-1.2) % Absolute Granulocytes (1.56-6.13) x10^3/uL Basophils # (0.01-0.08) x10^3/uL PT 10.7 (9.4-12.5) SECONDS INR 0.98 (0.8-3.0) Sodium 138 (135-145) mmol/L Potassium 3.7 (3.5-5.1) mmol/L Chloride 101 (98-107) mmol/L Carbon Dioxide 28 (22-30) mmol/L Anion Gap 13.1 (5-15) MEQ/L BUN 14 (7-17) mg/dL Creatinine 1.17 H (0.52-1.04) mg/dL Estimated GFR 56.5 ML/MIN Glucose 136 H (74-106) mg/dL Calcium 9.1 (8.4-10.2) mg/dL Total Bilirubin 0.80 (0.2-1.3) mg/dL AST 33 (14-36) U/L ALT 36 H (0-35) U/L Alkaline Phosphatase 108 (38-126) U/L Troponin I < 0.012 (0.000-0.033) ng/mL NT-Pro-B Natriuret Pep 117 (<300) pg/mL Serum Total Protein 6.9 (6.3-8.2) g/dL Albumin 3.8 (3.5-5.0) g/dL 08/01/24 Range/Units 12:20 WBC 8.0 (3.98-10.04) x10^3/uL RBC 4.16 (3.93-5.22) x10^6/uL Hgb 12.5 (11.2-15.7) g/dL Hct 38.6 (34.1-44.9) % MCV 92.8 (79.4-94.8) fL MCH 30.0 (25.6-32.2) pg MCHC 32.4 (32.2-35.5) g/dL RDW 14.1 (11.7-14.4) % Plt Count 274 (182-369) x10^3/uL MPV 9.7 (9.4-12.3) fL Gran % 72.5 H (34.0-71.1) % Immature Gran % (Auto) 0.5 H (0.001-0.429) % Nucleat RBC Rel Count 0.0 (0.00-0.2) % Eos # (Auto) 0.27 (0.04-0.36) x10^3/uL Immature Gran # (Auto) 0.04 H (0.001-0.031) x10^3u/L Absolute Lymphs (auto) 1.30 (1.18-3.74) x10^3/uL Absolute Monos (auto) 0.55 (0.24-0.86) x10^3/uL Absolute Nucleated RBC 0.00 (0.00-0.012) x10^3u/L Lymphocytes % 16.2 L (19.3-51.7) % Monocytes % 6.8 (4.7-12.5) % Eosinophils % 3.4 (0.7-5.8) % Basophils % 0.6 (0.1-1.2) % Absolute Granulocytes 5.83 (1.56-6.13) x10^3/uL Basophils # 0.05 (0.01-0.08) x10^3/uL PT (9.4-12.5) SECONDS INR (0.8-3.0) Sodium (135-145) mmol/L Potassium (3.5-5.1) mmol/L Chloride (98-107) mmol/L Carbon Dioxide (22-30) mmol/L Anion Gap (5-15) MEQ/L BUN (7-17) mg/dL Creatinine (0.52-1.04) mg/dL Estimated GFR ML/MIN Glucose (74-106) mg/dL Calcium (8.4-10.2) mg/dL Total Bilirubin (0.2-1.3) mg/dL AST (14-36) U/L ALT (0-35) U/L Alkaline Phosphatase (38-126) U/L Troponin I (0.000-0.033) ng/mL NT-Pro-B Natriuret Pep (<300) pg/mL Serum Total Protein (6.3-8.2) g/dL Albumin (3.5-5.0) g/dL - Progress Progress: improved, re-examined Air Movement: good Progress Note: 08/01/24 12:33 I medical decision making and the assignment of moderate complexity to this patient's medical issue today is based on review of the patient's past medical history, review of the patient's medication list, review the patient drug allergy list, history present illness and physical findings on examination. The workup includes placement of intravenous line, CBC, CMP, troponin level, twelve-lead EKG, left lower extremity venous Doppler and CT scan of the chest with contrast. Differential diagnosis includes but is not limited to pulmonary embolism, pneumonia, anemia, electrolyte abnormalities, arrhythmias 08/01/24 14:12 I have interpreted the patient's laboratory data results. Based on the laboratory data results. There are no acute, emergent medical issues. The venous Doppler of the left lower extremity was interpreted by the radiologist and I reviewed the impression. The impression states negative for DVT. 08/01/24 15:31 Clinically, the patient's shortness of breath has improved and she has no complaints of chest pain. 08/01/24 15:32 Patient is not a smoker. She has never been diagnosed with coronary artery disease. She is not on any medications to treat hyperlipidemia. She does not have chest pain. She is not diabetic. Her heart score is less than 4. 08/01/24 15:[address] scan of the chest with contrast was interpreted by the radiologist and I reviewed the impression. The impression states negative for pulmonary embolus. No acute cardiopulmonary abnormalities. Blood Culture(s) Obtained: Yes Antibiotics given: No Counseled pt/family regarding: lab results, diagnosis, rad results Medical Desision Making - Independent Historian Additional History obtained from: Spouse - Diagnostic Testing Diagnostic test were ordered, analyzed, and reviewed by me: Yes Radiological Interpretation: Reviewed by me, Teleradiologist Report - Risk of complications Low Risk: Low risk of morbidity from additional dx testing or treatment - Departure Departure Disposition: Home Clinical Impression: Shortness of breath Condition: Stable Critical Care Time: No Referrals: GISELLE ALMARAZ MD [Primary Care Provider] - Follow up/PCP as directed Additional Instructions: Continue your Xarelto and other medications as prescribed. Call your surgeon and your primary care provider today, 08/01/2024, to make arrangements for follow-up appointment to be seen in the next 3 days. Return to the emergency department if your symptoms recur.
[2024-08-01 12:33] LABS: Hematocrit 38.6 % (34.1-44.9); Hemoglobin 12.5 g/dL (11.2-15.7); Lymphocytes % 16.2 % (19.3-51.7); Mean Cell Volume 92.8 fL (79.4-94.8); Mean Corpuscular Hgb Concent. 32.4 g/dL (32.2-35.5); Mean Platelet Volume 9.7 fL (9.4-12.3); Neutrophil % 72.5 % (34.0-71.1); Platelet Count 274 x10^3/uL (182-369); Red Blood Count 4.16 x10^6/uL (3.93-5.22); Red Cell Distribution Width 14.1 % (11.7-14.4)
[2024-08-01 12:34] LABS: Absolute Neutrophil Ct (ANC) 5.83 x10^3/uL (1.56-6.13); BASOPHIL % 0.6 % (0.1-1.2); Basophil (Absolute #) 0.05 x10^3/uL (0.01-0.08); Eosinophil % 3.4 % (0.7-5.8); Eosinophil (Absolute #) 0.27 x10^3/uL (0.04-0.36); IMMATURE GRAN # 0.04 x10^3u/L (0.001-0.031); IMMATURE GRAN % 0.5 % (0.001-0.429); Monocyte (Absolute #) 0.55 x10^3/uL (0.24-0.86); Monocytes % 6.8 % (4.7-12.5)
[2024-08-01] MEDS: Sodium Chloride 0.9% 1000 ML 1,000 ML IV SCH (12:35)
[2024-08-01 12:49] LABS: INR 0.98 (0.8-3.0); PROTIME 10.7 SECONDS (9.4-12.5)
[2024-08-01 12:56] LABS: ALBUMIN 3.8 g/dL (3.5-5.0); ANION GAP 13.1 MEQ/L (5-15); BILIRUBIN,TOTAL 0.8 mg/dL (0.2-1.3); Calcium 9.1 mg/dL (8.4-10.2); Creatinine 1 1.17 mg/dL (0.52-1.04); EST GLOMERULAR FILTRATION RATE 56.5 ML/MIN; Potassium 3.7 mmol/L (3.5-5.1); Total Protein 6.9 g/dL (6.3-8.2)
--- NOTE | 2024-08-01 13:37 | XRAY ---
Indication: Postop leg swelling. Two-dimensional sonogram and color Doppler imaging major venous vessels left leg performed. Comparison: July 05, 2021 No thrombus seen in the examined deep venous vessels left leg including greater saphenous vein. Veins demonstrate normal compressibility. Venous waveforms are normal with and without augmentation. Impression: Left leg again negative for DVT.
[2024-08-01 14:40] VITALS: O2SAT 99
[2024-08-01] MEDS ORDERED: MORPHINE SULFATE 4 MG INJ ONE (14:43)
[2024-08-01] MEDS ORDERED: Zofran 4 MG/2 ML VIAL ONE (14:43)
[2024-08-01] MEDS: Zofran 4 MG/2 ML VIAL IV ONE (14:46)
[2024-08-01] MEDS: MORPHINE SULFATE 4 MG INJ IV ONE (14:46)
--- NOTE | 2024-08-01 15:05 | XRAY ---
Indication: Elevated d-dimer. Short of breath. Postoperative left knee arthroplasty. Multiple contiguous axial images obtained through the chest using 60 cc Isovue 370 contrast and PE protocol. Comparison: None Good opacification pulmonary arteries to include the lobar and segmental branches. No pulmonary embolus. Heart not enlarged. Aorta is normal in course and caliber. Tiny right hilar calcified nodes. No pathologic mediastinal/hilar lymphadenopathy. Lungs inflated with incidental 1 cm right middle lobe calcified granuloma. No infiltrate or effusion. Bony thorax intact . A few prominent bilateral axillary lymph nodes, largest measuring 1.3 x 2.0 cm on the right. Limited upper abdomen demonstrates fatty liver, tiny splenic calcified granulomas, and cholecystectomy clips. Impression: 1. Negative pulmonary embolus. No acute cardiopulmonary abnormalities. 2. A few prominent bilateral axillary lymph nodes presumed reactive. Correlate clinically. 3. Chronic findings including fatty liver and old granulomatous disease.
[2024-08-01 15:46] VITALS: BP 92/54; PULSE 70; RESP 16
== END 2024-08-01 15:57 | disposition home or self-care (01) ==
LOC: ED 11:51
DX: R06.02 Shortness of breath (principal); I10 Essential (primary) hypertension; E78.5 Hyperlipidemia, unspecified; Z79.891 Long term (current) use of opiate analgesic; Z79.899 Other long term (current) drug therapy
CPT/HCPCS: 36000; 36415; 71260; 80053; 83880; 84484; 85025; 85610; 93005; 93971; 96360; 96361; 96374; 96375; 99284; J2270; J2405

== ENCOUNTER 2024-08-07 10:34 | Emergency (ER) | payer OTHER ==
[2024-08-07 10:44] VITALS: TEMP 98.3
[2024-08-07] MEDS ORDERED: Zofran 4 MG/2 ML VIAL ONE ×2 (11:15→12:45)
[2024-08-07] MEDS ORDERED: Sodium Chloride 0.9% 1000 ML 1,000 ML ONE (11:16)
[2024-08-07] MEDS: Sodium Chloride 0.9% 1000 ML 1,000 ML IV STA (11:17)
[2024-08-07] MEDS: Zofran 4 MG/2 ML VIAL IV ONE ×2 (11:17→12:45)
[2024-08-07 11:39] LABS: Absolute Neutrophil Ct (ANC) 5.32 x10^3/uL (1.56-6.13); BASOPHIL % 0.7 % (0.1-1.2); Basophil (Absolute #) 0.05 x10^3/uL (0.01-0.08); Eosinophil % 1.7 % (0.7-5.8); Eosinophil (Absolute #) 0.13 x10^3/uL (0.04-0.36); Hematocrit 39.3 % (34.1-44.9); Hemoglobin 12.9 g/dL (11.2-15.7); IMMATURE GRAN # 0.07 x10^3u/L (0.001-0.031); IMMATURE GRAN % 0.9 % (0.001-0.429); Lymphocytes % 18.7 % (19.3-51.7); Mean Cell Volume 90.6 fL (79.4-94.8); Mean Corpuscular Hemoglobin 29.7 pg (25.6-32.2); Mean Corpuscular Hgb Concent. 32.8 g/dL (32.2-35.5); Mean Platelet Volume 8.7 fL (9.4-12.3); Monocyte (Absolute #) 0.52 x10^3/uL (0.24-0.86); Monocytes % 6.9 % (4.7-12.5); Neutrophil % 71.1 % (34.0-71.1); Platelet Count 383 x10^3/uL (182-369); Red Blood Count 4.34 x10^6/uL (3.93-5.22); Red Cell Distribution Width 13.9 % (11.7-14.4); White Blood Count 7.5 x10^3/uL (3.98-10.04)
[2024-08-07 11:46] LABS: Appearance Clear (Clear); Bacteria None Seen /HPF (None Seen); Bilirubin Negative (Negative); Blood Negative (Negative); Epithelial Cells Rare /HPF (None Seen); Glucose, Urine Negative (Negative); Hyaline Casts NONE SEEN /LPF (0-2); Ketones 40 (Negative); Leukocyte Esterase Negative (Negative); Nitrite Negative (Negative); Ph 7.5 (4.6-8.0); Protein,Urine Dip Negative (Negative); RBC 0-2 /HPF (0-5); Specific Gravity 1.015 (1.005-1.030); WBC 0-2 /HPF (0-5)
[2024-08-07 11:49] LABS: ALBUMIN 4.1 g/dL (3.5-5.0); ANION GAP 13.5 MEQ/L (5-15); BILIRUBIN,TOTAL 0.8 mg/dL (0.2-1.3); Calcium 9.5 mg/dL (8.4-10.2); Creatinine 1 0.89 mg/dL (0.52-1.04); EST GLOMERULAR FILTRATION RATE 78.5 ML/MIN; Total Protein 7.5 g/dL (6.3-8.2)
[2024-08-07 11:53] LABS: Potassium 4.4 mmol/L (3.5-5.1)
[2024-08-07 11:58] VITALS: RESP 14
--- NOTE | 2024-08-07 12:00 | XRAY ---
Indication: Abdominal pain. Nausea, vomiting, diarrhea. Multiple contiguous axial images obtained through the abdomen and pelvis without contrast. Comparison: October 07, 2022 Lung bases clear with stable incidental right middle lobe calcified granuloma. Heart not enlarged. Noncontrasted stomach and bowel loops appear nonobstructed with normal appendix. Again scattered sigmoid and lesser degree descending diverticulosis without diverticulitis. Stable fatty liver, right lower renal exophytic cysts, splenic calcified granulomas, cholecystectomy, and hysterectomy. No free fluid/air. Remaining liver, pancreas, spleen, adrenal glands, kidneys, ureters, bladder, and aorta are unremarkable for noncontrast exam. Osseous structures intact. Impression: Again chronic findings including colonic diverticulosis, right renal cyst, and old granulomatous disease. No new/acute findings on this noncontrast exam.
[2024-08-07 12:03] VITALS: O2SAT 100
[2024-08-07 12:29] LABS: 027 TOX PROD PRESUMPTIVE NEGATIVE (NEGATIVE); TOXIGENIC C. DIFF ORG NEGATIVE (NEGATIVE)
--- NOTE | 2024-08-07 12:29 | ERPHSYRPT ---
- History of Present Illness Time Seen by Provider: 08/07/24 11:06 Historian: patient, family Exam Limitations: no limitations Patient Subjective Stated Complaint: C/O nausea, vomiting, diarrhea, abdominal pain since 9pm yesterday. Triage Nursing Assessment: Patient brought back to ER in a W/C. Stand by assist to transfer from chair to bed; knee surgery on 07/28/24. Patient with a C/D/I dressing noted to left knee. No active vomiting during assessment. No SOB. She is alert and oriented. Skin tone normal. Physician History: 53-year-old female with history of anxiety/depression/hypothyroidism/hypertension/hyperlipidemia, recent knee replacement almost 10 days ago presented to the ER with sudden onset nausea vomiting diarrhea from 4 AM. Patient reports multiple episodes of nonprojectile, nonbilious vomiting without hematemesis and also multiple episodes of loose stool with no hematochezia. Denies any fever or chills. Denies use of any recent antibiotics. Has minimal abdominal discomfort but nausea and dry heaving is the most bothering part. Denies any known sick contact. Timing/Duration: yesterday, gradual onset, worse Activities at Onset: rest Quality: cramping Abdominal Pain Onset Location: generalized abdomen Pain Radiation: no radiation Severity of Pain-Max: moderate Severity of Pain-Current: mild Associated Symptoms: diarrhea, nausea, vomiting Allergies/Adverse Reactions: cinnamon Allergy (Severe, Verified 08/07/24 10:41) Swelling of Tongue and Lips aspirin Allergy (Intermediate, Verified 08/07/24 10:41) Rash pt states allergic to baby aspirin/orange coating Home Medications: Levothyroxine Sodium 75 Mcg [Synthroid 75 Mcg] 75 mcg PO DAILY 02/29/16 [History] hydrOXYzine HCL [Hydroxyzine HCl] 25 mg PO QID 08/07/21 [History] Nortriptyline HCl 25 mg PO HS 04/03/22 [History] Citalopram Hydrobromide [Celexa] 10 mg PO DAILY 05/11/23 [History] Amlodipine Besylate/Benazepril [Amlodipine-Benazepril 5-20 mg] 1 tab PO DAILY [History] Propranolol HCl 20 mg PO DAILY 04/28/24 [History] Simvastatin 5 mg PO HS 04/28/24 [History] Gabapentin 600 mg PO BID 08/07/24 [History] Hx Tetanus, Diphtheria Vaccination/Date Given: Yes Hx Influenza Vaccination/Date Given: No Hx Pneumococcal Vaccination/Date Given: No Immunizations Up to Date: Yes Travel Risk - International Travel Have you traveled outside of the country in past 3 weeks: No - Emerging Infectious Disease Are you exhibiting symptoms associated with any current EIDs: Yes Symptoms: Abdominal Pain, Diarrhea, Vomitting - Review of Systems Constitutional: Fatigue Eyes: No Symptoms Ears, Nose, & Throat: No Symptoms Respiratory: No Symptoms Cardiac: No Symptoms Abdominal/Gastrointestinal: Abdominal Pain, Nausea, Vomiting, Diarrhea Genitourinary Symptoms: No Symptoms Musculoskeletal: No Symptoms Skin: No Symptoms Neurological: No Symptoms Endocrine: No Symptoms Hematologic/Lymphatic: No Symptoms Immunological/Allergic: No Symptoms - Past Medical History Pertinent Past Medical History: Yes Neurological History: Migraines ENT History: No Pertinent History Cardiac History: High Cholesterol, Hypertension Respiratory History: No Pertinent History Endocrine Medical History: Hypothyroidism Musculoskeletal History: Osteoarthritis GI Medical History: Diverticulitis, Diverticulosis, GERD, Gallbladder Disease History: No Pertinent History Psycho-Social History: Depression Female Reproductive Disorders: Abnormal Uterine Bleeding Other Medical History: SX HX: , HYSTERECTOMY, CHOLECYSTECTOMY - Past Surgical History Past Surgical History: Yes Neuro Surgical History: No Pertinent History Cardiac: No Pertinent History Respiratory: No Pertinent History Gastrointestinal: Cholecystectomy Genitourinary: No Pertinent History Musculoskeletal: Orthopedic Surgery Female Surgical History: Section, Hysterectomy, Tubal Ligation Other Surgical History: miniscus tear repair, left knee - Female History Hx Last Menstrual Period: hyster - Social History Smoking Status: Never smoker Exposure to second hand smoke: No Drug Use: none Patient Lives Alone: No - Social Determinants of Health Will the patient participate in the screening: Yes Do you worry about a steady place to live?: No Do you have any problems with any of the following?: No known problems In the past 12 months,have you had to go without utilities?: No Transportation Issues: No Has anyone in your support network made you feel unsafe?: No Have you or anyone in your house had to go without enough: No - Nursing Vital Signs Nursing Vital Signs: Initial Vital Signs Temperature 98.3 F 08/07/24 10:38 Pulse Rate 83 08/07/24 10:38 Respiratory Rate 13 08/07/24 10:38 Blood Pressure 140/92 08/07/24 10:38 O2 Sat by Pulse Oximetry 99 08/07/24 10:38 Pain Scale Pain Intensity 3 - Physical Exam General Appearance: no apparent distress, alert Eye Exam: PERRL/EOMI Ears, Nose, Throat Exam: normal ENT inspection Neck Exam: normal inspection, non-tender, supple, full range of motion Respiratory Exam: normal breath sounds, lungs clear Cardiovascular Exam: regular rate/rhythm, normal heart sounds Gastrointestinal/Abdomen Exam: soft, normal bowel sounds, No tenderness Extremity Exam: normal inspection, normal range of motion Neurologic Exam: alert, oriented x 3, cooperative, certified medication technician II-XII nml as tested Skin Exam: normal color SpO2 Interpretation: normal SpO2: 100 O2 Delivery: Room Air Ordered Tests: Active Orders 24 hr Category Date Time Status IV Insertion STAT Care 08/07/24 10:42 Completed NPO (ED) STAT Care 08/07/24 10:42 Completed ABDOMEN AND PELVIS W/0 CONTRAS [CT] Stat Exams 08/07/24 10:42 Completed AMYLASE Stat Lab 08/07/24 11:20 Completed CBC W DIFF Stat Lab 08/07/24 11:20 Completed CMP Stat Lab 08/07/24 11:20 Completed LIPASE Stat Lab 08/07/24 11:20 Completed Lactic Acid Stat Lab 08/07/24 11:00 Completed UA W/RFX UR CULTURE Stat Lab 08/07/24 11:29 Completed Medication Summary Discontinued Medications Generic Name Dose Route Start Last Admin Trade Name Freq PRN Reason Stop Dose Admin Sodium Chloride 1,000 mls @ 999 mls/hr 08/07/24 11:13 08/07/24 12:20 Sodium Chloride 0.9% 1000 Ml IV 08/07/24 12:13 Infused .Q1H1M STA Infusion Sodium Chloride Confirm 08/07/24 11:16 Sodium Chloride 0.9% 1000 Ml Administered 08/07/24 11:17 Dose 1,000 mls @ ud .ROUTE .STK-MED ONE Ondansetron HCl 4 mg 08/07/24 11:09 08/07/24 11:17 Ondansetron Hcl 4 Mg/2 Ml Vial IV 08/07/24 11:10 4 mg STAT ONE Administration Ondansetron HCl Confirm 08/07/24 11:15 Ondansetron Hcl 4 Mg/2 Ml Vial Administered 08/07/24 11:16 Dose 4 mg .ROUTE .STK-MED ONE Ondansetron HCl 4 mg 08/07/24 12:37 08/07/24 12:45 Ondansetron Hcl 4 Mg/2 Ml Vial IV 08/07/24 12:38 4 mg STAT ONE Administration Ondansetron HCl Confirm 08/07/24 12:45 Ondansetron Hcl 4 Mg/2 Ml Vial Administered 08/07/24 12:46 Dose 4 mg .ROUTE .STK-MED ONE Lab/Rad Data: Laboratory Result Diagrams 08/07/24 11:20 08/07/24 11:20 Laboratory Results 08/07/24 08/07/24 08/07/24 Range/Units 11:29 11:29 11:20 WBC (3.98-10.04) x10^3/uL RBC (3.93-5.22) x10^6/uL Hgb (11.2-15.7) g/dL Hct (34.1-44.9) % MCV (79.4-94.8) fL MCH (25.6-32.2) pg MCHC (32.2-35.5) g/dL RDW (11.7-14.4) % Plt Count (182-369) x10^3/uL MPV (9.4-12.3) fL Gran % (34.0-71.1) % Immature Gran % (Auto) (0.001-0.429) % Nucleat RBC Rel Count (0.00-0.2) % Eos # (Auto) (0.04-0.36) x10^3/uL Immature Gran # (Auto) (0.001-0.031) x10^3u/L Absolute Lymphs (auto) (1.18-3.74) x10^3/uL Absolute Monos (auto) (0.24-0.86) x10^3/uL Absolute Nucleated RBC (0.00-0.012) x10^3u/L Lymphocytes % (19.3-51.7) % Monocytes % (4.7-12.5) % Eosinophils % (0.7-5.8) % Basophils % (0.1-1.2) % Absolute Granulocytes (1.56-6.13) x10^3/uL Basophils # (0.01-0.08) x10^3/uL Sodium 137 (135-145) mmol/L Potassium 4.4 (3.5-5.1) mmol/L Chloride 105 (98-107) mmol/L Carbon Dioxide 23 (22-30) mmol/L Anion Gap 13.5 (5-15) MEQ/L BUN 7 (7-17) mg/dL Creatinine 0.89 (0.52-1.04) mg/dL Estimated GFR 78.5 ML/MIN Glucose 129 H (74-106) mg/dL Lactic Acid (0.4-2.0) Calcium 9.5 (8.4-10.2) mg/dL Total Bilirubin 0.80 (0.2-1.3) mg/dL AST 38 H (14-36) U/L ALT 27 (0-35) U/L Alkaline Phosphatase 79 (38-126) U/L Serum Total Protein 7.5 (6.3-8.2) g/dL Albumin 4.1 (3.5-5.0) g/dL Amylase 60 (30-110) U/L Lipase 31 (23-300) U/L Urine Color Yellow (Yellow) Urine Appearance Clear (Clear) Urine pH 7.5 (4.6-8.0) Ur Specific [place] 1.015 (1.005-1.030) Urine Protein Negative (Negative) Urine Glucose (UA) Negative (Negative) mg/dL Urine Ketones 40 A (Negative) Urine Blood Negative (Negative) Urine Nitrite Negative (Negative) Urine Bilirubin Negative (Negative) Urine Urobilinogen 1.0 A (0.2) mg/dL Ur Leukocyte Esterase Negative (Negative) U Hyaline Cast (Auto) NONE SEEN (0-2) /LPF Urine Microscopic RBC 0-2 (0-5) /HPF Urine Microscopic WBC 0-2 (0-5) /HPF Ur Epithelial Cells Rare (None Seen) /HPF Urine Bacteria None Seen (None Seen) /HPF Urine Culture Reflexed NO (NO) C. difficile Screen NEGATIVE (NEGATIVE) C.difficile 027-[id number] PRESUMPTIVE NEGATIVE (NEGATIVE) 08/07/24 08/07/24 Range/Units 11:20 11:00 WBC 7.5 (3.98-10.04) x10^3/uL RBC 4.34 (3.93-5.22) x10^6/uL Hgb 12.9 (11.2-15.7) g/dL Hct 39.3 (34.1-44.9) % MCV 90.6 (79.4-94.8) fL MCH 29.7 (25.6-32.2) pg MCHC 32.8 (32.2-35.5) g/dL RDW 13.9 (11.7-14.4) % Plt Count 383 H (182-369) x10^3/uL MPV 8.7 L (9.4-12.3) fL Gran % 71.1 (34.0-71.1) % Immature Gran % (Auto) 0.9 H (0.001-0.429) % Nucleat RBC Rel Count 0.0 (0.00-0.2) % Eos # (Auto) 0.13 (0.04-0.36) x10^3/uL Immature Gran # (Auto) 0.07 H (0.001-0.031) x10^3u/L Absolute Lymphs (auto) 1.40 (1.18-3.74) x10^3/uL Absolute Monos (auto) 0.52 (0.24-0.86) x10^3/uL Absolute Nucleated RBC 0.00 (0.00-0.012) x10^3u/L Lymphocytes % 18.7 L (19.3-51.7) % Monocytes % 6.9 (4.7-12.5) % Eosinophils % 1.7 (0.7-5.8) % Basophils % 0.7 (0.1-1.2) % Absolute Granulocytes 5.32 (1.56-6.13) x10^3/uL Basophils # 0.05 (0.01-0.08) x10^3/uL Sodium (135-145) mmol/L Potassium (3.5-5.1) mmol/L Chloride (98-107) mmol/L Carbon Dioxide (22-30) mmol/L Anion Gap (5-15) MEQ/L BUN (7-17) mg/dL Creatinine (0.52-1.04) mg/dL Estimated GFR ML/MIN Glucose (74-106) mg/dL Lactic Acid 1.4 (0.4-2.0) Calcium (8.4-10.2) mg/dL Total Bilirubin (0.2-1.3) mg/dL AST (14-36) U/L ALT (0-35) U/L Alkaline Phosphatase (38-126) U/L Serum Total Protein (6.3-8.2) g/dL Albumin (3.5-5.0) g/dL Amylase (30-110) U/L Lipase (23-300) U/L Urine Color (Yellow) Urine Appearance (Clear) Urine pH (4.6-8.0) Ur Specific [place] (1.005-1.030) Urine Protein (Negative) Urine Glucose (UA) (Negative) mg/dL Urine Ketones (Negative) Urine Blood (Negative) Urine Nitrite (Negative) Urine Bilirubin (Negative) Urine Urobilinogen (0.2) mg/dL Ur Leukocyte Esterase (Negative) U Hyaline Cast (Auto) (0-2) /LPF Urine Microscopic RBC (0-5) /HPF Urine Microscopic WBC (0-5) /HPF Ur Epithelial Cells (None Seen) /HPF Urine Bacteria (None Seen) /HPF Urine Culture Reflexed (NO) C. difficile Screen (NEGATIVE) C.difficile 027-[id number] (NEGATIVE) - Progress Progress: improved Progress Note: 08/07/24 12:28 53-year-old is evaluated in the ER for nausea vomiting diarrhea with some abdominal discomfort since morning. Patient is afebrile. She is given fluids and symptomatic treatment, on reevaluation she is feeling much improved. Workup showed normal white count, fairly unremarkable chemistries, no UTI. CT abdomen pelvis is negative for any acute intra-abdominal pelvic findings. I believe patient's has viral gastroenteritis, recommended supportive care with Zofran and Tylenol and outpatient follow-up. Discussed signs symptoms of worsening needing return to ER which she seems understanding. Stable for discharge. Counseled pt/family regarding: lab results, diagnosis, need for follow-up, rad results Medical Desision Making - Diagnostic Testing Diagnostic test were ordered, analyzed, and reviewed by me: Yes Radiological Interpretation: Reviewed by me - Risk of complications The pt has a mod risk of morbidity or mortality based on: Need for prescription drug management - Departure Departure Disposition: Home Clinical Impression: Acute gastroenteritis Condition: Stable Critical Care Time: No Referrals: GISELLE ALMARAZ MD [Primary Care Provider] - Follow up with PCP 1 day Instructions: Viral gastroenteritis in adults Additional Instructions: Drink plenty of fluids. Take Tylenol/Zofran as needed. Follow-up with your pr imary care for reevaluation. Return to ER for intractable nausea vomiting/diarrhea/abdominal pain or if develop fever chills etc. Prescriptions: Ondansetron ODT 4 MG [Zofran Odt 4 mg] 1 ea PO QIDPRN PRN #7 tablet PRN Reason: n/v
[2024-08-07 12:50] VITALS: BP 164/85; PULSE 80
[2024-08-10 13:07] LABS: Adenovirus F40/41 Not Detected (Not Detected); Astrovirus Not Detected (Not Detected); Campylobacter Not Detected (Not Detected); Cryptosporidium Not Detected (Not Detected); Cyclospora cayetanensis Not Detected (Not Detected); Entamoeba histolytica Not Detected (Not Detected); Enteroaggregative E coli Not Detected (Not Detected); Enterpathogenic E coli Detected (Not Detected); Entertoxigenic E coli Not Detected (Not Detected); Giardia lamblia Not Detected (Not Detected); Norovirus GI/GII Not Detected (Not Detected); Plesiomonas shigelloides Not Detected (Not Detected); Rotavirus A Not Detected (Not Detected); Salmonella Not Detected (Not Detected); Shig-toxin-producing E coli Not Detected (Not Detected); Shigella/Enterinvasive E coli Not Detected (Not Detected); Vibrio Not Detected (Not Detected); Vibrio cholerae Not Detected (Not Detected); Yersinia enterocolitica Not Detected (Not Detected)
[2024-08-10 13:26] LABS: Sapovirus Not Detected (Not Detected)
== END 2024-08-07 12:54 | disposition home or self-care (01) ==
LOC: ED 10:34
DX: A08.4 Viral intestinal infection, unspecified (principal); R11.2 Nausea with vomiting, unspecified; R19.7 Diarrhea, unspecified; I10 Essential (primary) hypertension; E78.5 Hyperlipidemia, unspecified; Z79.899 Other long term (current) drug therapy
CPT/HCPCS: 36000; 36415; 74176; 80053; 81001; 82150; 83605; 83690; 85025; 87493; 87507; 96360; 96374; 96376; 99284; J2405